=== PATIENT | female | born 1970 | race Caucasian/White ===

== ENCOUNTER 2025-07-14 21:16 | Inpatient (IN) | payer OTHER, SELFPAY ==
--- OUTSIDE RECORDS SUMMARY | 2025-04-12 10:45 | XMS_ITS ---
Author Organization [facility] [address] Address [address] [place] [address] Care Team Providers Care Event Marketing Specialist Name Role Phone [facility] [place] Primary C are Provider Unavailable MICHAEL POTTER Unavailable [phone] Encounters Encounter Location Date Provider Diagnosis [facility] [address] [place] [address] 04/12/2025 MICHAEL POTTER Plan Of Treatment Next Appt Details Provider Name:MICHAEL POTTER, 07/20/2025 08:00:00 AM, [address], [place], [address], Progress Notes * Hieu MALIKB:1970 (55 yo F)Acc No.[id number]:04/12/2025 Patient: Rayne Christina NICOLE Provider: Kevin POTTER PA-C :1970 A ge:54 Y S ex:Female Date:04/12/2025 Address:[address] [place], [place] [id number] Pcp:[facility] Subjective: * Chief Complaints: * * Medical History: Objective: * Vitals: Assessment: Plan: * Treatment: * Images: Billing Information: * Visit Code: * Procedure Codes: * Electronic signature of CHRIS POTTER PA-C, [id number] on 07/14/2025 at 11:00 PM EDT Sign off status: Pending * Provider: Kevin POTTER PA-C Date: 0 04/12/2025 Generated for Ania river/Jess/Sherman on: 0 07/14/2025 11:00 PM EDT
--- OUTSIDE RECORDS SUMMARY | 2025-05-14 06:00 | XMS_ITS ---
Author Organization [facility] [address] Address [address] [place] [address] Care Team Providers Care Dust Mop Maker Name Role Phone [facility] [place] Primary C are Provider Unavailable MICHAEL POTTER Unavailable [phone] Encounters Encounter Location Date Provider Diagnosis [facility] [address] [place] [address] 05/14/2025 MICHAEL POTTER Plan Of Treatment Next Appt Details Provider Name:MICHAEL POTTER, 07/20/2025 08:00:00 AM, [address], [place], [address], Progress Notes * Hieu MALIKB:1970 (55 yo F)Acc No.[id number]:05/14/2025 Patient: Rayne Christina NICOLE Provider: Kevin POTTER PA-C :1970 A ge:54 Y S ex:Female Date:05/14/2025 Address:[address] [place], [place] [id number] Pcp:[facility] Subjective: * Chief Complaints: * * Medical History: Objective: * Vitals: Assessment: Plan: * Treatment: * Images: Billing Information: * Visit Code: * Procedure Codes: * Electronic signature of CHRIS POTTER PA-C, [id number] on 07/14/2025 at 11:00 PM EDT Sign off status: Pending * Provider: Kevin POTTER PA-C Date: 0 05/14/2025 Generated for Ania river/Jess/Sherman on: 0 07/14/2025 11:00 PM EDT
--- NOTE | ~2025-07-14 | CT_ITS ---
CLINICAL HISTORY: LLQ Pain; Tenderness; CT abdomen and pelvis with contrast Comparison: None provided Findings: The lung bases are clear. Splenic cyst. Distended gallbladder without wall thickening. Liver, pancreas, and adrenal glands are within normal limits. Right kidney is absent. Left hydroureteronephrosis with 2 mm calculus in the left ureterovesical junction. No bowel obstruction, pneumatosis or pneumoperitoneum. Normal appendix. Hysterectomy. Urinary bladder is underdistended. The bones are intact. IMPRESSION: 1. Left hydroureteronephrosis with 2 mm calculus in left ureterovesical junction. 2. Absent right kidney. This document has been electronically signed by: Angel Casanova MD on 07/15/2025 02:02:46
[2025-07-14 21:27] VITALS: BP 124/69; PULSE 74; RESP 20; TEMP 37; O2SAT 98; BMI 24.3
[2025-07-14 21:44] LABS: MANUAL DIFF FLAG NO
[2025-07-14 21:45] LABS: Hematocrit 38.7 % (37.0-47.0); Hemoglobin 13.1 g/dl (12.0-16.0); Imm Gran Abs Auto 0.01 X10*3/uL (0.00-0.03); Imm Gran Pct Auto 0.2 % (0.0-0.4); Lymphocytes Absolute Auto 0.8 X10*3/uL (1.2-4.9); Mean Corpuscular HGB Conc 33.9 g/dl (31.0-35.0); Mean Corpuscular Hemoglobin 29.6 pg (27.0-33.0); Mean Corpuscular Volume 87.6 fL (80.0-98.0); NRBC Abs Auto 0.000 X10*3/uL (0.0-0.012); NRBC Pct Auto 0.0 /100WBC (0.0-0.2); Platelet Count 165 X10*3/uL (160-400); Red Blood Count 4.42 X10*6/uL (4.20-5.50); White Blood Count 6.6 X10*3/uL (4.8-10.8)
[2025-07-14 21:58] LABS: Alanine Aminotransferase 16 U/L (0-31); Albumin Level 4.5 g/dL (3.5-5.0); Alkaline Phosphatase 63 U/L (39-117); Anion Gap 11 (12-20); Aspartate Amino Transferase 21 U/L (5-31); Blood Urea Nitrogen 15 mg/dL (9-16); Calcium 9.5 mg/dL (8.4-10.2); Carbon Dioxide 23 mmol/L (22-29); Chloride 113 mmol/L (96-108); Creatinine Clr Calc Pharmacy 36.2; Estimated Glomerular Filt Rate 34; Lipase 44 U/L (8-78); Potassium 3.3 mmol/L (3.3-5.1); Sodium 144 mmol/L (135-145); Total Protein 6.5 g/dL (6.5-8.0)
--- OUTSIDE RECORDS SUMMARY | 2025-07-14 23:00 | XMS_ITS | Patient Health Record ---
[facility] [address] [address] Address [address] [place] [address] Care Team Providers Care Slip Cover Maker Name Role Phone [facility] Primary C are Provider Unavailable TARIQMICHAEL Brown Unavailable [phone] CHYNA HICKS Unavailable [phone] Allergies No Known Allergies Reason For Referral No Information Medications Medication SIG (Take, Route, Frequency, Duration) Notes Start Date End Date Status Zepbound 7.5 MG/0.5ML 0.5 mL Subcutaneou s once weekly; Duration: 90 days 05/04/2025 Active Wegovy 1 MG/0.5ML 0.5 mL Subcutaneous once weekly; Duration: 30 days 06/08/2025 Active Zoloft 100 MG 2 tablet Orally Once a day Active Wellbutrin 50mg bid Active Social History Tobacco Use: Social History Observation Description Date Details (start date - stop date) Never Smoker NA - NA Tobacco Use/Smoking Question Answer Notes Are you a nonsmoker Problems Problem Type SNOMED Code ICD Code Onset Dates Problem Status W/U Status Risk Notes Problem Obesity (463585007) Obesity (BMI 30-39.9) (E66.9) Active confirmed Problem Obese class I (18436161679717 7) BMI 33.0-33.9,adult (Z68.33) Active confirmed Problem Obese class II (81409861694159 5) BMI 36.0-36.9,adult (Z68.36) Active confirmed Problem Body mass index 30+ - obesity (124793369) BMI 30.0-30.9,adult (Z68.30) Active confirmed Problem Overweight (343926342) Overweight (BMI 25.0-29.9) (E66.3) Active confirmed Vital Signs Heart Rate 80 /min 06/08/2025 Oximetry 95 % 06/08/2025 Blood pressure diastolic 68 mm Hg 06/08/2025 Height 63 in 06/08/2025 Blood pressure systolic 118 mm Hg 06/08/2025 Weight 145.5 lbs 06/08/2025 BMI 25.77 kg/m2 06/08/2025 Encounters Encounter Location Date Provider Diagnosis [id number] 10/13/2024 MICHAEL TARIQ Obesity (BMI 30-39.9 ) E66.9 ; BMI 36.0-36.9,adult Z68.36 ; Mild depression F32.A and Kidney donor Z52.[address] 12/07/2024 MICHAEL TARIQ Obesity (BMI 30-39.9 ) E66.9 ; BMI 33.0-33.9,adult Z68.33 and Chronic depression F32.A [facility] 02/01/2025 MICHAEL TARIQ Obesity (BMI 30-39.9 ) E66.9 ; BMI 30.0-30.9,adult Z68.30 ; Chronic depression F32.A and Other fatigue R53.[address] 03/15/2025 MICHAEL TARIQ Overweight (BMI 25.0-29.9) E66.3 ; BMI 28.0-28.9,adult Z68.28 ; Chronic depression F32.A and Encounter for examination of blood pressure without abnormal findings Z01.[address] 05/04/2025 MICHAEL TARIQ BMI 27.0-27.9,adult Z68.27 ; Overweight (BMI 25.0-29.9) E66.3 ; Chronic depression F32.A and Encounter for examination of blood pressure without abnormal findings Z01.[address] 06/08/2025 MICHAEL TARIQ BMI 25.0-25.9,adult Z68.25 ; Overweight (BMI 25.0-29.9) E66.3 ; Chronic depression F32.A and Encounter for examination of blood pressure without abnormal findings Z01.30 [facility] [address] [address] 10/16/2024 MICHAEL TARIQ [facility] [address] [address] 10/16/2024 MICHAEL TARIQ Obesity (BMI 30-39.9 ) E66.9 [facility] [address] [address] 11/13/2024 MICHAEL TARIQ [facility] [address] [place] [address] 12/08/2024 MICHAEL TARIQ Obesity (BMI 30-39.9 ) E66.9 [facility] [address] [address] 01/08/2025 MICHAEL TARIQ Obesity (BMI 30-39.9 ) E66.9 [facility] [address] [address] 01/22/2025 MICHAEL TARIQ [facility] [address] [place] [address] 05/04/2025 MICHAEL TARIQ [facility] [address] [address] 10/13/2024 MICHAEL TARIQ [facility] [address] [address] 02/01/2025 MICHAEL TARIQ Obesity (BMI 30-39.9 ) E66.9 Assessments Encounter Date Diagnosis (ICD Code) Assessment Notes Treatment Notes Treatment Clinical Notes Section Notes 10/16/2024 Obesity (BMI 30-39.9) (ICD-10 - E66.9) 12/07/2024 Obesity (BMI 30-39.9) (ICD-10 - E66.9) 10/13/2024: Wt: 207.6 lbs, BMI: 36.77 patient struggles with weight loss regardless of lifestyle modifications. Currently does not have a well-balanced diet and often times eats meals on the go. Does not have current exercise regimen but would like to start CrossFit in November. Discussed the importance of a high-protein diet and limiting processed foods, sugar alcohol. Discussed the importance of increasing physical activity with a daily step count of 8 to 10K steps daily as well as beginning strength training. Discussed seca scan with patient. Patient has had recent labs obtained and will bring to next follow-up. Plan to begin tirzepatide 2.5 mg weekly injections. Discussed side effects and role of medication. Plan to send for prior authorization. Plan to follow-up in 4 weeks. 12/07/2024: Wt: 188.2 lbs, BMI: 33.33 patient currently on Zepbound 5 mg weekly injections. Patient reports severe appetite suppression. Denies any side effects. Patient reports drinking a protein shake in the morning with 42 g of protein and often times does not eat anything else for the rest of the day. Discussed risk versus benefit with this medication. Explained in great detail the importance of eating regardless of appetite in order to prevent further destruction of metabolism. Discussed risk of body in starvation mode and holding onto fat as opposed to losing it. Advised patient to eat at least 1100 lupe daily up to 1400 lupe. Advised patient to eat at least 100 g of protein daily. Advised patient to increase physical activity in order to promote muscle mass growth as well. Discussed with patient that we would not be able to increase medication dose at this time due to muscle loss. Discussed with patient if she does not increase muscle, we will need to discontinue medication. Discussed Seca scale results. Overall has lost 19 pounds, 14 pounds of fat mass and 4 pounds of muscle mass. Patient agreeable with plan. Plan to closely monitor. #Depression: Well-managed. Plan to continue Zoloft 100 mg p.o. once daily. #Live donor #kidney transplant: Patient reports in July she recently donated kidney for transplant. Will try to obtain these records. Total time spent is was 30 minutes, with more face to face time This medication is prescribed by or in consultation with a board certified obesity and weight management physician Dr. Chyna Hicks The patient will continue exercise regimen with an emphasis on improving/increasing steps to at least 6,000-10,000 steps per day. Increasing cardio and strength training exercises as tolerated to improve weight loss and work on building muscle mass. Patient is committed to smarter eating with calorie counting and mindful eating. Limiting processed foods and carbohydrates and increasing leafy greens and lean proteins as well as fruits into their diet. Patient was counseled on the importance of eating local, organic food when possible. Patient has been counseled regarding effects of GLP/GIP-1 agonists and other FDA approved weight loss medications with regards to a multifactorial approach of weight loss as mentioned above and that the medication alone will not be sufficient to meet patients goals. We discussed holistic medication approach with emphasis on lifestyle modification. Discussed obesity as it increases risk of diabetes, cardiovascular disease, and/or organ damage. We spent a lot of time discussing the relationship between food, exercise, sleep, mental health, and obesity. We discussed the importance of having SECAs done every visit and having accountability done during these visits. That the scale is done to monitor not only weight loss but the body composition during medication management and healthy lifestyle changes. We discussed that if the patient is unable at times to financially afford this scale that we would rather waive the fee and have the scale done than have the patient not have the scale obtained. Will follow up with the patient in 4 weeks time to monitor weight loss. total time was 30 min, greater than 50 % of time was spent on care coordination Case discussed with collaborating physician Paulino Hicks who reviewed the assessment and plan. Chart, medications, labs, vital signs reviewed. Dictation was accomplished with the use of [employer] voice recognition software, prone to medical misidentifications and grammatical errors. This is unintentional and the practitioner does try to identify and correct these, but some could still be present. Please do not hesitate to contact practitioner for clarification. All questions answered to patients satisfaction. Patient verbalized understanding of diagnosis and treatments explained. To call sooner prior to next visit it any questions/concerns arise. 12/07/2024 BMI 33.0-33.9,adul t (ICD-10 - Z68.33) 10/13/2024: Wt: 207.6 lbs, BMI: 36.77 patient struggles with weight loss regardless of lifestyle modifications. Currently does not have a well-balanced diet and often times eats meals on the go. Does not have current exercise regimen but would like to start CrossFit in November. Discussed the importance of a high-protein diet and limiting processed foods, sugar alcohol. Discussed the importance of increasing physical activity with a daily step count of 8 to 10K steps daily as well as beginning strength training. Discussed seca scan with patient. Patient has had recent labs obtained and will bring to next follow-up. Plan to begin tirzepatide 2.5 mg weekly injections. Discussed side effects and role of medication. Plan to send for prior authorization. Plan to follow-up in 4 weeks. 12/07/2024: Wt: 188.2 lbs, BMI: 33.33 patient currently on Zepbound 5 mg weekly injections. Patient reports severe appetite suppression. Denies any side effects. Patient reports drinking a protein shake in the morning with 42 g of protein and often times does not eat anything else for the rest of the day. Discussed risk versus benefit with this medication. Explained in great detail the importance of eating regardless of appetite in order to prevent further destruction of metabolism. Discussed risk of body in starvation mode and holding onto fat as opposed to losing it. Advised patient to eat at least 1100 lupe daily up to 1400 lupe. Advised patient to eat at least 100 g of protein daily. Advised patient to increase physical activity in order to promote muscle mass growth as well. Discussed with patient that we would not be able to increase medication dose at this time due to muscle loss. Discussed with patient if she does not increase muscle, we will need to discontinue medication. Discussed Seca scale results. Overall has lost 19 pounds, 14 pounds of fat mass and 4 pounds of muscle mass. Patient agreeable with plan. Plan to closely monitor. #Depression: Well-managed. Plan to continue Zoloft 100 mg p.o. once daily. #Live donor #kidney transplant: Patient reports in July she recently donated kidney for transplant. Will try to obtain these records. Total time spent is was 30 minutes, with more face to face time This medication is prescribed by or in consultation with a board certified obesity and weight management physician Dr. Chyna Hicks The patient will continue exercise regimen with an emphasis on improving/increasing steps to at least 6,000-10,000 steps per day. Increasing cardio and strength training exercises as tolerated to improve weight loss and work on building muscle mass. Patient is committed to smarter eating with calorie counting and mindful eating. Limiting processed foods and carbohydrates and increasing leafy greens and lean proteins as well as fruits into their diet. Patient was counseled on the importance of eating local, organic food when possible. Patient has been counseled regarding effects of GLP/GIP-1 agonists and other FDA approved weight loss medications with regards to a multifactorial approach of weight loss as mentioned above and that the medication alone will not be sufficient to meet patients goals. We discussed holistic medication approach with emphasis on lifestyle modification. Discussed obesity as it increases risk of diabetes, cardiovascular disease, and/or organ damage. We spent a lot of time discussing the relationship between food, exercise, sleep, mental health, and obesity. We discussed the importance of having SECAs done every visit and having accountability done during these visits. That the scale is done to monitor not only weight loss but the body composition during medication management and healthy lifestyle changes. We discussed that if the patient is unable at times to financially afford this scale that we would rather waive the fee and have the scale done than have the patient not have the scale obtained. Will follow up with the patient in 4 weeks time to monitor weight loss. total time was 30 min, greater than 50 % of time was spent on care coordination Case discussed with collaborating physician Paulino Hicks who reviewed the assessment and plan. Chart, medications, labs, vital signs reviewed. Dictation was accomplished with the use of [employer] voice recognition software, prone to medical misidentifications and grammatical errors. This is unintentional and the practitioner does try to identify and correct these, but some could still be present. Please do not hesitate to contact practitioner for clarification. All questions answered to patients satisfaction. Patient verbalized understanding of diagnosis and treatments explained. To call sooner prior to next visit it any questions/concerns arise. 10/13/2024 Obesity (BMI 30-39.9) (ICD-10 - E66.9) Patient was reassured and welcomed to the practice. 10/13/2024: Wt: 207.6 lbs, BMI: 36.77 patient struggles with weight loss regardless of lifestyle modifications. Currently does not have a well-balanced diet and often times eats meals on the go. Does not have current exercise regimen but would like to start CrossFit in November. Discussed the importance of a high-protein diet and limiting processed foods, sugar alcohol. Discussed the importance of increasing physical activity with a daily step count of 8 to 10K steps daily as well as beginning strength training. Discussed seca scan with patient. Patient has had recent labs obtained and will bring to next follow-up. Plan to begin tirzepatide 2.5 mg weekly injections. Discussed side effects and role of medication. Plan to send for prior authorization. Plan to follow-up in 4 weeks. #Depression: Well-managed. Plan to continue Zoloft 100 mg p.o. once daily. #Live donor #kidney transplant: Patient reports in July she recently donated kidney for transplant. Will try to obtain these records. We discussed that we stress a hollistic medical approach with emphasis on lifestyle modification. Patient was informed that a healthy lifestyle with exercise and good eating habits can help reduce his risk of medical complications. Patient is explained that obesity increases his risk of diabetes, cardiovascular disease, or organ damage. We spent a lot of time discussing the relationship between food, exercise, sleep, mental health and obesity. Patient was counseled on the importance EATING local, organic food when possible. Patient was educated on clean 15 and dirty dozen. I provided information about reading books called The Food Rules by Hema Brito and Eat Fat Get Lean by Dr Jun Apple. Self education is important in the journey for weight management. Patient was offered diagnostic testing/ SECA scale. We want to measure visceral adiposity, advanced body composition, adverse lipids, fatty acid balance, risk for heart disease and atherosclerosis, markers of inflammation and genetic susceptibility. Patient was counseled on weight management and was advised to lose weight using A. Meal Replacement Products Patient was educated on the replacement products called optifast. This is a good way of taking fixed amount of calories. It has been shown in studies to be ineffective weight management tool. This however has to be coupled with lifestyle intervention as well as laboratory data and EKG monitoring. It is impossible to know how a person will tolerate complete meal replacement. The side effects of meal replacement and weight loss could include syncopal attacks, dizziness, gallstones, potential cholecystectomy, possible heart attack and even . The benefits of meal replacement would be potential weight loss but no guarantees can be made. Meal replacement products are not covered by insurance. Once the patient has bought these products we cannot return them B. Lifestyle management which includes several strategies as below 1. Eat a low carbohydrate good fat good protein diet. Eliminate refined carbohydrates from the diet. Limit sugared beverages. Eat local organic when possible. Cook your own meals. Read food labels. Focus on healthy snacks. Portion control and food with low glycemic index 2. Exercise regularly. Try to get at least 6000 steps a day. Use a predominant to track activity level. Consider using apps like 7 minute excercise, myfitnesspal, lose it, stick as needed for self-monitoring and weight management. Consider group exercises. Consider hiring a personalized living assistant. Regular exercise is mendez to sustainable health and prevents as a buffer against weight regain 3. Sleep is most important for healing. Try to sleep at least 6-8 hours a night. A good quality sleep needs a sleep ritual with ideal room temperature of around 68. It might help to take a shower and have no electronics in the room and sleep in a very dark room without artificial light. Start sleep routine and get up early in the morning and go to bed on time. 4. Make a social connection. Surround yourself with positive people with positive energy. Connect with friends and family. 5. Get into the habit of meditating and mindfulness while doing everything. 6. Go outside and connect with nature. C. Prescription medications Patient was educated on the use of prescription medications for medical weight loss. This is a growing list and includes phentermine, Topamax, Qsymia, contrave, belviq and saxenda, wegovy etc. All prescription medications could have side effects including but not limited to kidney stones, seizure disorder, cardiac arrhythmias, heart attack, pancreatitis, GI effects, Etc. Patient was encouraged to read the prescription insert and discuss with their pharmacist to make an informed decision about taking medication and know that these medications are being prescribed with good intentions and we do not know how a patient would react to her medication. Some medications are FDA approved for weight loss and there is also off label use depending on patient's inability to afford medications in an attempt to lose weight. D. Behavioral counseling was done to establish a relationship between food and an mood. Patient was provided information about local counseling and psychiatry and Dr Koo at [facility]. We would like to cover regular topics and build on low glycemic eating exercise mindful eating, using yoga and meditation along with deep breathing and connecting with friends and family. E. MASS PAT reviewed, Patient's current medications were reviewed and opinion was given on medication that can cause weight gain and can be substituted F. Patient was assessed for risk with obesity including and not limiting to atherosclerosis, heart disease, stroke, kidney disease, restrictive lung disease, irritable bowel syndrome and overall mortality. Risk of developing prediabetes diabetes and metabolic syndrome was discussed G. Therapeutic plan: We have decided to make therapeutic plan which would include choosing wisely on calories restricting portion getting active, tracking weight, getting good quality sleep and working on time management H. Patient will follow up in 4 weeks for weight management Total time spent today was 60 minutes of which greater than 50% was spent on coordinating and counseling Case discussed with collaborating physician Fany Hicks who reviewed the assessment and plan. Chart, medications, labs, vital signs reviewed. Dictation was accomplished with the use of [employer] voice recognition software, prone to medical misidentifications and grammatical errors. This is unintentional and the practitioner does try to identify and correct these, but some could still be present. Please do not hesitate to contact practitioner for clarification. All questions answered to patients satisfaction. Patient verbalized understanding of diagnosis and treatments explained. To call sooner prior to next visit it any questions/concerns arise. 10/13/2024 BMI 36.0-36.9,adul t (ICD-10 - Z68.36) Patient was reassured and welcomed to the practice. 10/13/2024: Wt: 207.6 lbs, BMI: 36.77 patient struggles with weight loss regardless of lifestyle modifications. Currently does not have a well-balanced diet and often times eats meals on the go. Does not have current exercise regimen but would like to start CrossFit in November. Discussed the importance of a high-protein diet and limiting processed foods, sugar alcohol. Discussed the importance of increasing physical activity with a daily step count of 8 to 10K steps daily as well as beginning strength training. Discussed seca scan with patient. Patient has had recent labs obtained and will bring to next follow-up. Plan to begin tirzepatide 2.5 mg weekly injections. Discussed side effects and role of medication. Plan to send for prior authorization. Plan to follow-up in 4 weeks. #Depression: Well-managed. Plan to continue Zoloft 100 mg p.o. once daily. #Live donor #kidney transplant: Patient reports in July she recently donated kidney for transplant. Will try to obtain these records. We discussed that we stress a hollistic medical approach with emphasis on lifestyle modification. Patient was informed that a healthy lifestyle with exercise and good eating habits can help reduce his risk of medical complications. Patient is explained that obesity increases his risk of diabetes, cardiovascular disease, or organ damage. We spent a lot of time discussing the relationship between food, exercise, sleep, mental health and obesity. Patient was counseled on the importance EATING local, organic food when possible. Patient was educated on clean 15 and dirty dozen. I provided information about reading books called The Food Rules by Hema Brito and Eat Fat Get Lean by Dr Jun Apple. Self education is important in the journey for weight management. Patient was offered diagnostic testing/ SECA scale. We want to measure visceral adiposity, advanced body composition, adverse lipids, fatty acid balance, risk for heart disease and atherosclerosis, markers of inflammation and genetic susceptibility. Patient was counseled on weight management and was advised to lose weight using A. Meal Replacement Products Patient was educated on the replacement products called optifast. This is a good way of taking fixed amount of calories. It has been shown in studies to be ineffective weight management tool. This however has to be coupled with lifestyle intervention as well as laboratory data and EKG monitoring. It is impossible to know how a person will tolerate complete meal replacement. The side effects of meal replacement and weight loss could include syncopal attacks, dizziness, gallstones, potential cholecystectomy, possible heart attack and even . The benefits of meal replacement would be potential weight loss but no guarantees can be made. Meal replacement products are not covered by insurance. Once the patient has bought these products we cannot return them B. Lifestyle management which includes several strategies as below 1. Eat a low carbohydrate good fat good protein diet. Eliminate refined carbohydrates from the diet. Limit sugared beverages. Eat local organic when possible. Cook your own meals. Read food labels. Focus on healthy snacks. Portion control and food with low glycemic index 2. Exercise regularly. Try to get at least 6000 steps a day. Use a predominant to track activity level. Consider using apps like 7 minute excercise, mySpeakUpnesspal, lose it, stick as needed for self-monitoring and weight management. Consider group exercises. Consider hiring a personalized living assistant. Regular exercise is mendez to sustainable health and prevents as a buffer against weight regain 3. Sleep is most important for healing. Try to sleep at least 6-8 hours a night. A good quality sleep needs a sleep ritual with ideal room temperature of around 68. It might help to take a shower and have no electronics in the room and sleep in a very dark room without artificial light. Start sleep routine and get up early in the morning and go to bed on time. 4. Make a social connection. Surround yourself with positive people with positive energy. Connect with friends and family. 5. Get into the habit of meditating and mindfulness while doing everything. 6. Go outside and connect with nature. C. Prescription medications Patient was educated on the use of prescription medications for medical weight loss. This is a growing list and includes phentermine, Topamax, Qsymia, contrave, belviq and saxenda, wegovy etc. All prescription medications could have side effects including but not limited to kidney stones, seizure disorder, cardiac arrhythmias, heart attack, pancreatitis, GI effects, Etc. Patient was encouraged to read the prescription insert and discuss with their pharmacist to make an informed decision about taking medication and know that these medications are being prescribed with good intentions and we do not know how a patient would react to her medication. Some medications are FDA approved for weight loss and there is also off label use depending on patient's inability to afford medications in an attempt to lose weight. D. Behavioral counseling was done to establish a relationship between food and an mood. Patient was provided information about local counseling and psychiatry and Dr Koo at [facility]. We would like to cover regular topics and build on low glycemic eating exercise mindful eating, using yoga and meditation along with deep breathing and connecting with friends and family. E. MASS PAT reviewed, Patient's current medications were reviewed and opinion was given on medication that can cause weight gain and can be substituted F. Patient was assessed for risk with obesity including and not limiting to atherosclerosis, heart disease, stroke, kidney disease, restrictive lung disease, irritable bowel syndrome and overall mortality. Risk of developing prediabetes diabetes and metabolic syndrome was discussed G. Therapeutic plan: We have decided to make therapeutic plan which would include choosing wisely on calories restricting portion getting active, tracking weight, getting good quality sleep and working on time management H. Patient will follow up in 4 weeks for weight management Total time spent today was 60 minutes of which greater than 50% was spent on coordinating and counseling Case discussed with collaborating physician Fany Hicks who reviewed the assessment and plan. Chart, medications, labs, vital signs reviewed. Dictation was accomplished with the use of [employer] voice recognition software, prone to medical misidentifications and grammatical errors. This is unintentional and the practitioner does try to identify and correct these, but some could still be present. Please do not hesitate to contact practitioner for clarification. All questions answered to patients satisfaction. Patient verbalized understanding of diagnosis and treatments explained. To call sooner prior to next visit it any questions/concerns arise. 12/08/2024 Obesity (BMI 30-39.9) (ICD-10 - E66.9) 01/08/2025 Obesity (BMI 30-39.9) (ICD-10 - E66.9) 02/01/2025 Obesity (BMI 30-39.9) (ICD-10 - E66.9) 10/13/2024: Wt: 207.6 lbs, BMI: 36.77 patient struggles with weight loss regardless of lifestyle modifications. Currently does not have a well-balanced diet and often times eats meals on the go. Does not have current exercise regimen but would like to start CrossFit in November. Discussed the importance of a high-protein diet and limiting processed foods, sugar alcohol. Discussed the importance of increasing physical activity with a daily step count of 8 to 10K steps daily as well as beginning strength training. Discussed seca scan with patient. Patient has had recent labs obtained and will bring to next follow-up. Plan to begin tirzepatide 2.5 mg weekly injections. Discussed side effects and role of medication. Plan to send for prior authorization. Plan to follow-up in 4 weeks. 12/07/2024: Wt: 188.2 lbs, BMI: 33.33 patient currently on Zepbound 5 mg weekly injections. Patient reports severe appetite suppression. Denies any side effects. Patient reports drinking a protein shake in the morning with 42 g of protein and often times does not eat anything else for the rest of the day. Discussed risk versus benefit with this medication. Explained in great detail the importance of eating regardless of appetite in order to prevent further destruction of metabolism. Discussed risk of body in starvation mode and holding onto fat as opposed to losing it. Advised patient to eat at least 1100 lupe daily up to 1400 lupe. Advised patient to eat at least 100 g of protein daily. Advised patient to increase physical activity in order to promote muscle mass growth as well. Discussed with patient that we would not be able to increase medication dose at this time due to muscle loss. Discussed with patient if she does not increase muscle, we will need to discontinue medication. Discussed Seca scale results. Overall has lost 19 pounds, 14 pounds of fat mass and 4 pounds of muscle mass. Patient agreeable with plan. Plan to closely monitor. 02/01/2025: Wt: 174.4 lbs, BMI: 30.89 patient currently on Zepbound 5 mg weekly injections. Denies any side effects. Endorses adequate appetite suppression. Patient overall is lost 14 pounds since last visit, 11 pounds of fat mass and 4 pounds of muscle. Discussed in great detail that if patient continues to lose muscle we will have to discontinue medication. Recommend increasing protein with a goal of at least 80-100 g of protein daily. Patient recently started strength training and patient was congratulated on effort. Discussed staying consistent with at least 2 days of strength training weekly to promote muscle growth. Plan to stay on Zepbound 5 mg weekly injections and follow-up in 4 weeks. #Fatigue: Patient reports extreme fatigue. Would like to try JACQUELYN vitamin B12 injection today in office. Advised to schedule follow-up for an injection next week. #Depression: Well-managed. Plan to continue Zoloft 100 mg p.o. once daily. #Live donor #kidney transplant: Patient reports in July she recently donated kidney for transplant. Will try to obtain these records. Total time spent is was 30 minutes, with more face to face time This medication is prescribed by or in consultation with a board certified obesity and weight management physician Dr. Chyna Hicks The patient will continue exercise regimen with an emphasis on improving/increasing steps to at least 6,000-10,000 steps per day. Increasing cardio and strength training exercises as tolerated to improve weight loss and work on building muscle mass. Patient is committed to smarter eating with calorie counting and mindful eating. Limiting processed foods and carbohydrates and increasing leafy greens and lean proteins as well as fruits into their diet. Patient was counseled on the importance of eating local, organic food when possible. Patient has been counseled regarding effects of GLP/GIP-1 agonists and other FDA approved weight loss medications with regards to a multifactorial approach of weight loss as mentioned above and that the medication alone will not be sufficient to meet patients goals. We discussed holistic medication approach with emphasis on lifestyle modification. Discussed obesity as it increases risk of diabetes, cardiovascular disease, and/or organ damage. We spent a lot of time discussing the relationship between food, exercise, sleep, mental health, and obesity. We discussed the importance of having SECAs done every visit and having accountability done during these visits. That the scale is done to monitor not only weight loss but the body composition during medication management and healthy lifestyle changes. We discussed that if the patient is unable at times to financially afford this scale that we would rather waive the fee and have the scale done than have the patient not have the scale obtained. Will follow up with the patient in 4 weeks time to monitor weight loss. total time was 30 min, greater than 50 % of time was spent on care coordination Case discussed with collaborating physician Paulino Hicks who reviewed the assessment and plan. Chart, medications, labs, vital signs reviewed. Dictation was accomplished with the use of [employer] voice recognition software, prone to medical misidentifications and grammatical errors. This is unintentional and the practitioner does try to identify and correct these, but some could still be present. Please do not hesitate to contact practitioner for clarification. All questions answered to patients satisfaction. Patient verbalized understanding of diagnosis and treatments explained. To call sooner prior to next visit it any questions/concerns arise. 02/01/2025 BMI 30.0-30.9,adul t (ICD-10 - Z68.30) 10/13/2024: Wt: 207.6 lbs, BMI: 36.77 patient struggles with weight loss regardless of lifestyle modifications. Currently does not have a well-balanced diet and often times eats meals on the go. Does not have current exercise regimen but would like to start CrossFit in November. Discussed the importance of a high-protein diet and limiting processed foods, sugar alcohol. Discussed the importance of increasing physical activity with a daily step count of 8 to 10K steps daily as well as beginning strength training. Discussed seca scan with patient. Patient has had recent labs obtained and will bring to next follow-up. Plan to begin tirzepatide 2.5 mg weekly injections. Discussed side effects and role of medication. Plan to send for prior authorization. Plan to follow-up in 4 weeks. 12/07/2024: Wt: 188.2 lbs, BMI: 33.33 patient currently on Zepbound 5 mg weekly injections. Patient reports severe appetite suppression. Denies any side effects. Patient reports drinking a protein shake in the morning with 42 g of protein and often times does not eat anything else for the rest of the day. Discussed risk versus benefit with this medication. Explained in great detail the importance of eating regardless of appetite in order to prevent further destruction of metabolism. Discussed risk of body in starvation mode and holding onto fat as opposed to losing it. Advised patient to eat at least 1100 lupe daily up to 1400 lupe. Advised patient to eat at least 100 g of protein daily. Advised patient to increase physical activity in order to promote muscle mass growth as well. Discussed with patient that we would not be able to increase medication dose at this time due to muscle loss. Discussed with patient if she does not increase muscle, we will need to discontinue medication. Discussed Seca scale results. Overall has lost 19 pounds, 14 pounds of fat mass and 4 pounds of muscle mass. Patient agreeable with plan. Plan to closely monitor. 02/01/2025: Wt: 174.4 lbs, BMI: 30.89 patient currently on Zepbound 5 mg weekly injections. Denies any side effects. Endorses adequate appetite suppression. Patient overall is lost 14 pounds since last visit, 11 pounds of fat mass and 4 pounds of muscle. Discussed in great detail that if patient continues to lose muscle we will have to discontinue medication. Recommend increasing protein with a goal of at least 80-100 g of protein daily. Patient recently started strength training and patient was congratulated on effort. Discussed staying consistent with at least 2 days of strength training weekly to promote muscle growth. Plan to stay on Zepbound 5 mg weekly injections and follow-up in 4 weeks. #Fatigue: Patient reports extreme fatigue. Would like to try JACQUELYN vitamin B12 injection today in office. Advised to schedule follow-up for an injection next week. #Depression: Well-managed. Plan to continue Zoloft 100 mg p.o. once daily. #Live donor #kidney transplant: Patient reports in July she recently donated kidney for transplant. Will try to obtain these records. Total time spent is was 30 minutes, with more face to face time This medication is prescribed by or in consultation with a board certified obesity and weight management physician Dr. Chyna Hicks The patient will continue exercise regimen with an emphasis on improving/increasing steps to at least 6,000-10,000 steps per day. Increasing cardio and strength training exercises as tolerated to improve weight loss and work on building muscle mass. Patient is committed to smarter eating with calorie counting and mindful eating. Limiting processed foods and carbohydrates and increasing leafy greens and lean proteins as well as fruits into their diet. Patient was counseled on the importance of eating local, organic food when possible. Patient has been counseled regarding effects of GLP/GIP-1 agonists and other FDA approved weight loss medications with regards to a multifactorial approach of weight loss as mentioned above and that the medication alone will not be sufficient to meet patients goals. We discussed holistic medication approach with emphasis on lifestyle modification. Discussed obesity as it increases risk of diabetes, cardiovascular disease, and/or organ damage. We spent a lot of time discussing the relationship between food, exercise, sleep, mental health, and obesity. We discussed the importance of having SECAs done every visit and having accountability done during these visits. That the scale is done to monitor not only weight loss but the body composition during medication management and healthy lifestyle changes. We discussed that if the patient is unable at times to financially afford this scale that we would rather waive the fee and have the scale done than have the patient not have the scale obtained. Will follow up with the patient in 4 weeks time to monitor weight loss. total time was 30 min, greater than 50 % of time was spent on care coordination Case discussed with collaborating physician Paulino Hicks who reviewed the assessment and plan. Chart, medications, labs, vital signs reviewed. Dictation was accomplished with the use of [employer] voice recognition software, prone to medical misidentifications and grammatical errors. This is unintentional and the practitioner does try to identify and correct these, but some could still be present. Please do not hesitate to contact practitioner for clarification. All questions answered to patients satisfaction. Patient verbalized understanding of diagnosis and treatments explained. To call sooner prior to next visit it any questions/concerns arise. 02/01/2025 Obesity (BMI 30-39.9) (ICD-10 - E66.9) 03/15/2025 BMI 28.0-28.9,adul t (ICD-10 - Z68.28) 10/13/2024: Wt: 207.6 lbs, BMI: 36.77 patient struggles with weight loss regardless of lifestyle modifications. Currently does not have a well-balanced diet and often times eats meals on the go. Does not have current exercise regimen but would like to start CrossFit in November. Discussed the importance of a high-protein diet and limiting processed foods, sugar alcohol. Discussed the importance of increasing physical activity with a daily step count of 8 to 10K steps daily as well as beginning strength training. Discussed seca scan with patient. Patient has had recent labs obtained and will bring to next follow-up. Plan to begin tirzepatide 2.5 mg weekly injections. Discussed side effects and role of medication. Plan to send for prior authorization. Plan to follow-up in 4 weeks. 12/07/2024: Wt: 188.2 lbs, BMI: 33.33 patient currently on Zepbound 5 mg weekly injections. Patient reports severe appetite suppression. Denies any side effects. Patient reports drinking a protein shake in the morning with 42 g of protein and often times does not eat anything else for the rest of the day. Discussed risk versus benefit with this medication. Explained in great detail the importance of eating regardless of appetite in order to prevent further destruction of metabolism. Discussed risk of body in starvation mode and holding onto fat as opposed to losing it. Advised patient to eat at least 1100 lupe daily up to 1400 lupe. Advised patient to eat at least 100 g of protein daily. Advised patient to increase physical activity in order to promote muscle mass growth as well. Discussed with patient that we would not be able to increase medication dose at this time due to muscle loss. Discussed with patient if she does not increase muscle, we will need to discontinue medication. Discussed Seca scale results. Overall has lost 19 pounds, 14 pounds of fat mass and 4 pounds of muscle mass. Patient agreeable with plan. Plan to closely monitor. 02/01/2025: Wt: 174.4 lbs, BMI: 30.89 patient currently on Zepbound 5 mg weekly injections. Denies any side effects. Endorses adequate appetite suppression. Patient overall is lost 14 pounds since last visit, 11 pounds of fat mass and 4 pounds of muscle. Discussed in great detail that if patient continues to lose muscle we will have to discontinue medication. Recommend increasing protein with a goal of at least 80-100 g of protein daily. Patient recently started strength training and patient was congratulated on effort. Discussed staying consistent with at least 2 days of strength training weekly to promote muscle growth. Plan to stay on Zepbound 5 mg weekly injections and follow-up in 4 weeks. 03/15/2025: Wt: 161.9 lbs, BMI: 28.68 Currently on Zepbound 5 mg weekly injections. Denies any side effects. Dors is adequate appetite suppression. Overall lost 13 pounds. Has lost 10 pounds of fat mass and has lost 2 pounds of muscle loss. Discussed concern for muscle loss. Patient has begun hitting a goal of 100 g of protein daily. Has also begun strength training. Discussed further increasing protein as well as possibly increasing portion size. Recommend increasing weight with strength training. Plan to continue Zepbound 5 mg and follow-up in 4 weeks. #Low BP: Blood pressure 102/60. Denies any dizziness, lightheadedness, vision changes, shortness of breath. Will continue to monitor. #Depression: Well-managed. Plan to continue Zoloft 100 mg p.o. once daily. #Live donor #kidney transplant: Patient reports in July she recently donated kidney for transplant. Will try to obtain these records. Total time spent is was 30 minutes, with more face to face time This medication is prescribed by or in consultation with a board certified obesity and weight management physician Dr. Chyna Hicks The patient will continue exercise regimen with an emphasis on improving/increasing steps to at least 6,000-10,000 steps per day. Increasing cardio and strength training exercises as tolerated to improve weight loss and work on building muscle mass. Patient is committed to smarter eating with calorie counting and mindful eating. Limiting processed foods and carbohydrates and increasing leafy greens and lean proteins as well as fruits into their diet. Patient was counseled on the importance of eating local, organic food when possible. Patient has been counseled regarding effects of GLP/GIP-1 agonists and other FDA approved weight loss medications with regards to a multifactorial approach of weight loss as mentioned above and that the medication alone will not be sufficient to meet patients goals. We discussed holistic medication approach with emphasis on lifestyle modification. Discussed obesity as it increases risk of diabetes, cardiovascular disease, and/or organ damage. We spent a lot of time discussing the relationship between food, exercise, sleep, mental health, and obesity. We discussed the importance of having SECAs done every visit and having accountability done during these visits. That the scale is done to monitor not only weight loss but the body composition during medication management and healthy lifestyle changes. We discussed that if the patient is unable at times to financially afford this scale that we would rather waive the fee and have the scale done than have the patient not have the scale obtained. Will follow up with the patient in 4 weeks time to monitor weight loss. total time was 30 min, greater than 50 % of time was spent on care coordination Case discussed with collaborating physician Paulino Hicks who reviewed the assessment and plan. Chart, medications, labs, vital signs reviewed. Dictation was accomplished with the use of [employer] voice recognition software, prone to medical misidentifications and grammatical errors. This is unintentional and the practitioner does try to identify and correct these, but some could still be present. Please do not hesitate to contact practitioner for clarification. All questions answered to patients satisfaction. Patient verbalized understanding of diagnosis and treatments explained. To call sooner prior to next visit it any questions/concerns arise. 03/15/2025 Overweight (BMI 25.0-29.9) (ICD-10 - E66.3) 10/13/2024: Wt: 207.6 lbs, BMI: 36.77 patient struggles with weight loss regardless of lifestyle modifications. Currently does not have a well-balanced diet and often times eats meals on the go. Does not have current exercise regimen but would like to start CrossFit in November. Discussed the importance of a high-protein diet and limiting processed foods, sugar alcohol. Discussed the importance of increasing physical activity with a daily step count of 8 to 10K steps daily as well as beginning strength training. Discussed seca scan with patient. Patient has had recent labs obtained and will bring to next follow-up. Plan to begin tirzepatide 2.5 mg weekly injections. Discussed side effects and role of medication. Plan to send for prior authorization. Plan to follow-up in 4 weeks. 12/07/2024: Wt: 188.2 lbs, BMI: 33.33 patient currently on Zepbound 5 mg weekly injections. Patient reports severe appetite suppression. Denies any side effects. Patient reports drinking a protein shake in the morning with 42 g of protein and often times does not eat anything else for the rest of the day. Discussed risk versus benefit with this medication. Explained in great detail the importance of eating regardless of appetite in order to prevent further destruction of metabolism. Discussed risk of body in starvation mode and holding onto fat as opposed to losing it. Advised patient to eat at least 1100 lupe daily up to 1400 lupe. Advised patient to eat at least 100 g of protein daily. Advised patient to increase physical activity in order to promote muscle mass growth as well. Discussed with patient that we would not be able to increase medication dose at this time due to muscle loss. Discussed with patient if she does not increase muscle, we will need to discontinue medication. Discussed Seca scale results. Overall has lost 19 pounds, 14 pounds of fat mass and 4 pounds of muscle mass. Patient agreeable with plan. Plan to closely monitor. 02/01/2025: Wt: 174.4 lbs, BMI: 30.89 patient currently on Zepbound 5 mg weekly injections. Denies any side effects. Endorses adequate appetite suppression. Patient overall is lost 14 pounds since last visit, 11 pounds of fat mass and 4 pounds of muscle. Discussed in great detail that if patient continues to lose muscle we will have to discontinue medication. Recommend increasing protein with a goal of at least 80-100 g of protein daily. Patient recently started strength training and patient was congratulated on effort. Discussed staying consistent with at least 2 days of strength training weekly to promote muscle growth. Plan to stay on Zepbound 5 mg weekly injections and follow-up in 4 weeks. 03/15/2025: Wt: 161.9 lbs, BMI: 28.68 Currently on Zepbound 5 mg weekly injections. Denies any side effects. Dors is adequate appetite suppression. Overall lost 13 pounds. Has lost 10 pounds of fat mass and has lost 2 pounds of muscle loss. Discussed concern for muscle loss. Patient has begun hitting a goal of 100 g of protein daily. Has also begun strength training. Discussed further increasing protein as well as possibly increasing portion size. Recommend increasing weight with strength training. Plan to continue Zepbound 5 mg and follow-up in 4 weeks. #Low BP: Blood pressure 102/60. Denies any dizziness, lightheadedness, vision changes, shortness of breath. Will continue to monitor. #Depression: Well-managed. Plan to continue Zoloft 100 mg p.o. once daily. #Live donor #kidney transplant: Patient reports in July she recently donated kidney for transplant. Will try to obtain these records. Total time spent is was 30 minutes, with more face to face time This medication is prescribed by or in consultation with a board certified obesity and weight management physician Dr. Chyna Hicks The patient will continue exercise regimen with an emphasis on improving/increasing steps to at least 6,000-10,000 steps per day. Increasing cardio and strength training exercises as tolerated to improve weight loss and work on building muscle mass. Patient is committed to smarter eating with calorie counting and mindful eating. Limiting processed foods and carbohydrates and increasing leafy greens and lean proteins as well as fruits into their diet. Patient was counseled on the importance of eating local, organic food when possible. Patient has been counseled regarding effects of GLP/GIP-1 agonists and other FDA approved weight loss medications with regards to a multifactorial approach of weight loss as mentioned above and that the medication alone will not be sufficient to meet patients goals. We discussed holistic medication approach with emphasis on lifestyle modification. Discussed obesity as it increases risk of diabetes, cardiovascular disease, and/or organ damage. We spent a lot of time discussing the relationship between food, exercise, sleep, mental health, and obesity. We discussed the importance of having SECAs done every visit and having accountability done during these visits. That the scale is done to monitor not only weight loss but the body composition during medication management and healthy lifestyle changes. We discussed that if the patient is unable at times to financially afford this scale that we would rather waive the fee and have the scale done than have the patient not have the scale obtained. Will follow up with the patient in 4 weeks time to monitor weight loss. total time was 30 min, greater than 50 % of time was spent on care coordination Case discussed with collaborating physician Paulino Hicks who reviewed the assessment and plan. Chart, medications, labs, vital signs reviewed. Dictation was accomplished with the use of [employer] voice recognition software, prone to medical misidentifications and grammatical errors. This is unintentional and the practitioner does try to identify and correct these, but some could still be present. Please do not hesitate to contact practitioner for clarification. All questions answered to patients satisfaction. Patient verbalized understanding of diagnosis and treatments explained. To call sooner prior to next visit it any questions/concerns arise. 05/04/2025 BMI 27.0-27.9,adul t (ICD-10 - Z68.27) 10/13/2024: Wt: 207.6 lbs, BMI: 36.77 patient struggles with weight loss regardless of lifestyle modifications. Currently does not have a well-balanced diet and often times eats meals on the go. Does not have current exercise regimen but would like to start CrossFit in November. Discussed the importance of a high-protein diet and limiting processed foods, sugar alcohol. Discussed the importance of increasing physical activity with a daily step count of 8 to 10K steps daily as well as beginning strength training. Discussed seca scan with patient. Patient has had recent labs obtained and will bring to next follow-up. Plan to begin tirzepatide 2.5 mg weekly injections. Discussed side effects and role of medication. Plan to send for prior authorization. Plan to follow-up in 4 weeks. 12/07/2024: Wt: 188.2 lbs, BMI: 33.33 patient currently on Zepbound 5 mg weekly injections. Patient reports severe appetite suppression. Denies any side effects. Patient reports drinking a protein shake in the morning with 42 g of protein and often times does not eat anything else for the rest of the day. Discussed risk versus benefit with this medication. Explained in great detail the importance of eating regardless of appetite in order to prevent further destruction of metabolism. Discussed risk of body in starvation mode and holding onto fat as opposed to losing it. Advised patient to eat at least 1100 lupe daily up to 1400 lupe. Advised patient to eat at least 100 g of protein daily. Advised patient to increase physical activity in order to promote muscle mass growth as well. Discussed with patient that we would not be able to increase medication dose at this time due to muscle loss. Discussed with patient if she does not increase muscle, we will need to discontinue medication. Discussed Seca scale results. Overall has lost 19 pounds, 14 pounds of fat mass and 4 pounds of muscle mass. Patient agreeable with plan. Plan to closely monitor. 02/01/2025: Wt: 174.4 lbs, BMI: 30.89 patient currently on Zepbound 5 mg weekly injections. Denies any side effects. Endorses adequate appetite suppression. Patient overall is lost 14 pounds since last visit, 11 pounds of fat mass and 4 pounds of muscle. Discussed in great detail that if patient continues to lose muscle we will have to discontinue medication. Recommend increasing protein with a goal of at least 80-100 g of protein daily. Patient recently started strength training and patient was congratulated on effort. Discussed staying consistent with at least 2 days of strength training weekly to promote muscle growth. Plan to stay on Zepbound 5 mg weekly injections and follow-up in 4 weeks. 03/15/2025: Wt: 161.9 lbs, BMI: 28.68 Currently on Zepbound 5 mg weekly injections. Denies any side effects. Dors is adequate appetite suppression. Overall lost 13 pounds. Has lost 10 pounds of fat mass and has lost 2 pounds of muscle loss. Discussed concern for muscle loss. Patient has begun hitting a goal of 100 g of protein daily. Has also begun strength training. Discussed further increasing protein as well as possibly increasing portion size. Recommend increasing weight with strength training. Plan to continue Zepbound 5 mg and follow-up in 4 weeks. 05/04/2025: Wt: 156.6 lbs, BMI: 27.74 patient overall has lost 5 pounds, has lost 10 pounds of fat mass and has gained 1-1/2 pound of muscle. Patient congratulated on success. Patient's goal is 140 pounds. Discussed how we will begin tapering medication once patient hits goal weight or a BMI of 23, whichever comes sooner. Plan to continue high-protein diet. Plan to continue strength training as well as swimming laps in the pool as this is demonstrated to promote muscle mass growth. Will increase Zepbound 7.5 mg and send 90-day supply as patient will be traveling to [place] to see her son. Plan follow-up in 4 weeks. #Depression: Well-managed. Plan to continue Zoloft 100 mg p.o. once daily. #Live donor #kidney transplant: Patient reports in July she recently donated kidney for transplant. Will try to obtain these records. Total time spent is was 30 minutes, with more face to face time This medication is prescribed by or in consultation with a board certified obesity and weight management physician Dr. Chyna Hicks The patient will continue exercise regimen with an emphasis on improving/increasing steps to at least 6,000-10,000 steps per day. Increasing cardio and strength training exercises as tolerated to improve weight loss and work on building muscle mass. Patient is committed to smarter eating with calorie counting and mindful eating. Limiting processed foods and carbohydrates and increasing leafy greens and lean proteins as well as fruits into their diet. Patient was counseled on the importance of eating local, organic food when possible. Patient has been counseled regarding effects of GLP/GIP-1 agonists and other FDA approved weight loss medications with regards to a multifactorial approach of weight loss as mentioned above and that the medication alone will not be sufficient to meet patients goals. We discussed holistic medication approach with emphasis on lifestyle modification. Discussed obesity as it increases risk of diabetes, cardiovascular disease, and/or organ damage. We spent a lot of time discussing the relationship between food, exercise, sleep, mental health, and obesity. We discussed the importance of having SECAs done every visit and having accountability done during these visits. That the scale is done to monitor not only weight loss but the body composition during medication management and healthy lifestyle changes. We discussed that if the patient is unable at times to financially afford this scale that we would rather waive the fee and have the scale done than have the patient not have the scale obtained. Will follow up with the patient in 4 weeks time to monitor weight loss. total time was 30 min, greater than 50 % of time was spent on care coordination Case discussed with collaborating physician Paulino Hicks who reviewed the assessment and plan. Chart, medications, labs, vital signs reviewed. Dictation was accomplished with the use of [employer] voice recognition software, prone to medical misidentifications and grammatical errors. This is unintentional and the practitioner does try to identify and correct these, but some could still be present. Please do not hesitate to contact practitioner for clarification. All questions answered to patients satisfaction. Patient verbalized understanding of diagnosis and treatments explained. To call sooner prior to next visit it any questions/concerns arise. 06/08/2025 BMI 25.0-25.9,adul t (ICD-10 - Z68.25) 10/13/2024: Wt: 207.6 lbs, BMI: 36.77 patient struggles with weight loss regardless of lifestyle modifications. Currently does not have a well-balanced diet and often times eats meals on the go. Does not have current exercise regimen but would like to start CrossFit in November. Discussed the importance of a high-protein diet and limiting processed foods, sugar alcohol. Discussed the importance of increasing physical activity with a daily step count of 8 to 10K steps daily as well as beginning strength training. Discussed seca scan with patient. Patient has had recent labs obtained and will bring to next follow-up. Plan to begin tirzepatide 2.5 mg weekly injections. Discussed side effects and role of medication. Plan to send for prior authorization. Plan to follow-up in 4 weeks. 12/07/2024: Wt: 188.2 lbs, BMI: 33.33 patient currently on Zepbound 5 mg weekly injections. Patient reports severe appetite suppression. Denies any side effects. Patient reports drinking a protein shake in the morning with 42 g of protein and often times does not eat anything else for the rest of the day. Discussed risk versus benefit with this medication. Explained in great detail the importance of eating regardless of appetite in order to prevent further destruction of metabolism. Discussed risk of body in starvation mode and holding onto fat as opposed to losing it. Advised patient to eat at least 1100 lupe daily up to 1400 lupe. Advised patient to eat at least 100 g of protein daily. Advised patient to increase physical activity in order to promote muscle mass growth as well. Discussed with patient that we would not be able to increase medication dose at this time due to muscle loss. Discussed with patient if she does not increase muscle, we will need to discontinue medication. Discussed Seca scale results. Overall has lost 19 pounds, 14 pounds of fat mass and 4 pounds of muscle mass. Patient agreeable with plan. Plan to closely monitor. 02/01/2025: Wt: 174.4 lbs, BMI: 30.89 patient currently on Zepbound 5 mg weekly injections. Denies any side effects. Endorses adequate appetite suppression. Patient overall is lost 14 pounds since last visit, 11 pounds of fat mass and 4 pounds of muscle. Discussed in great detail that if patient continues to lose muscle we will have to discontinue medication. Recommend increasing protein with a goal of at least 80-100 g of protein daily. Patient recently started strength training and patient was congratulated on effort. Discussed staying consistent with at least 2 days of strength training weekly to promote muscle growth. Plan to stay on Zepbound 5 mg weekly injections and follow-up in 4 weeks. 03/15/2025: Wt: 161.9 lbs, BMI: 28.68 Currently on Zepbound 5 mg weekly injections. Denies any side effects. Dors is adequate appetite suppression. Overall lost 13 pounds. Has lost 10 pounds of fat mass and has lost 2 pounds of muscle loss. Discussed concern for muscle loss. Patient has begun hitting a goal of 100 g of protein daily. Has also begun strength training. Discussed further increasing protein as well as possibly increasing portion size. Recommend increasing weight with strength training. Plan to continue Zepbound 5 mg and follow-up in 4 weeks. 05/04/2025: Wt: 156.6 lbs, BMI: 27.74 patient overall has lost 5 pounds, has lost 10 pounds of fat mass and has gained 1-1/2 pound of muscle. Patient congratulated on success. Patient's goal is 140 pounds. Discussed how we will begin tapering medication once patient hits goal weight or a BMI of 23, whichever comes sooner. Plan to continue high-protein diet. Plan to continue strength training as well as swimming laps in the pool as this is demonstrated to promote muscle mass growth. Will increase Zepbound 7.5 mg and send 90-day supply as patient will be traveling to [place] to see her son. Plan follow-up in 4 weeks. 06/08/2025: Wt: 145.5 lbs, BMI: 25.77 currently on Zepbound 7.5 mg weekly injections. Has [facility] will need to switch to Wegovy. Has not had any side effects thus far. Will switch to Wegovy 1 mg weekly injections. Plan to send to pharmacy. Plan to continue lifestyle modifications as addressed in HPI. Patient almost at goal weight, briefly discussed tapering process. #Depression: Well-managed. Plan to continue Zoloft 100 mg p.o. once daily. #Live donor #kidney transplant: Patient reports in July she recently donated kidney for transplant. Will try to obtain these records. Total time spent is was 30 minutes, with more face to face time This medication is prescribed by or in consultation with a board certified obesity and weight management physician Dr. Chyna Hicsk The patient will continue exercise regimen with an emphasis on improving/increasing steps to at least 6,000-10,000 steps per day. Increasing cardio and strength training exercises as tolerated to improve weight loss and work on building muscle mass. Patient is committed to smarter eating with calorie counting and mindful eating. Limiting processed foods and carbohydrates and increasing leafy greens and lean proteins as well as fruits into their diet. Patient was counseled on the importance of eating local, organic food when possible. Patient has been counseled regarding effects of GLP/GIP-1 agonists and other FDA approved weight loss medications with regards to a multifactorial approach of weight loss as mentioned above and that the medication alone will not be sufficient to meet patients goals. We discussed holistic medication approach with emphasis on lifestyle modification. Discussed obesity as it increases risk of diabetes, cardiovascular disease, and/or organ damage. We spent a lot of time discussing the relationship between food, exercise, sleep, mental health, and obesity. We discussed the importance of having SECAs done every visit and having accountability done during these visits. That the scale is done to monitor not only weight loss but the body composition during medication management and healthy lifestyle changes. We discussed that if the patient is unable at times to financially afford this scale that we would rather waive the fee and have the scale done than have the patient not have the scale obtained. Will follow up with the patient in 4 weeks time to monitor weight loss. total time was 30 min, greater than 50 % of time was spent on care coordination Case discussed with collaborating physician Paulino Hicks who reviewed the assessment and plan. Chart, medications, labs, vital signs reviewed. Dictation was accomplished with the use of [employer] voice recognition software, prone to medical misidentifications and grammatical errors. This is unintentional and the practitioner does try to identify and correct these, but some could still be present. Please do not hesitate to contact practitioner for clarification. All questions answered to patients satisfaction. Patient verbalized understanding of diagnosis and treatments explained. To call sooner prior to next visit it any questions/concerns arise. 06/08/2025 Overweight (BMI 25.0-29.9) (ICD-10 - E66.3) 10/13/2024: Wt: 207.6 lbs, BMI: 36.77 patient struggles with weight loss regardless of lifestyle modifications. Currently does not have a well-balanced diet and often times eats meals on the go. Does not have current exercise regimen but would like to start CrossFit in November. Discussed the importance of a high-protein diet and limiting processed foods, sugar alcohol. Discussed the importance of increasing physical activity with a daily step count of 8 to 10K steps daily as well as beginning strength training. Discussed seca scan with patient. Patient has had recent labs obtained and will bring to next follow-up. Plan to begin tirzepatide 2.5 mg weekly injections. Discussed side effects and role of medication. Plan to send for prior authorization. Plan to follow-up in 4 weeks. 12/07/2024: Wt: 188.2 lbs, BMI: 33.33 patient currently on Zepbound 5 mg weekly injections. Patient reports severe appetite suppression. Denies any side effects. Patient reports drinking a protein shake in the morning with 42 g of protein and often times does not eat anything else for the rest of the day. Discussed risk versus benefit with this medication. Explained in great detail the importance of eating regardless of appetite in order to prevent further destruction of metabolism. Discussed risk of body in starvation mode and holding onto fat as opposed to losing it. Advised patient to eat at least 1100 lupe daily up to 1400 lupe. Advised patient to eat at least 100 g of protein daily. Advised patient to increase physical activity in order to promote muscle mass growth as well. Discussed with patient that we would not be able to increase medication dose at this time due to muscle loss. Discussed with patient if she does not increase muscle, we will need to discontinue medication. Discussed Seca scale results. Overall has lost 19 pounds, 14 pounds of fat mass and 4 pounds of muscle mass. Patient agreeable with plan. Plan to closely monitor. 02/01/2025: Wt: 174.4 lbs, BMI: 30.89 patient currently on Zepbound 5 mg weekly injections. Denies any side effects. Endorses adequate appetite suppression. Patient overall is lost 14 pounds since last visit, 11 pounds of fat mass and 4 pounds of muscle. Discussed in great detail that if patient continues to lose muscle we will have to discontinue medication. Recommend increasing protein with a goal of at least 80-100 g of protein daily. Patient recently started strength training and patient was congratulated on effort. Discussed staying consistent with at least 2 days of strength training weekly to promote muscle growth. Plan to stay on Zepbound 5 mg weekly injections and follow-up in 4 weeks. 03/15/2025: Wt: 161.9 lbs, BMI: 28.68 Currently on Zepbound 5 mg weekly injections. Denies any side effects. Dors is adequate appetite suppression. Overall lost 13 pounds. Has lost 10 pounds of fat mass and has lost 2 pounds of muscle loss. Discussed concern for muscle loss. Patient has begun hitting a goal of 100 g of protein daily. Has also begun strength training. Discussed further increasing protein as well as possibly increasing portion size. Recommend increasing weight with strength training. Plan to continue Zepbound 5 mg and follow-up in 4 weeks. 05/04/2025: Wt: 156.6 lbs, BMI: 27.74 patient overall has lost 5 pounds, has lost 10 pounds of fat mass and has gained 1-1/2 pound of muscle. Patient congratulated on success. Patient's goal is 140 pounds. Discussed how we will begin tapering medication once patient hits goal weight or a BMI of 23, whichever comes sooner. Plan to continue high-protein diet. Plan to continue strength training as well as swimming laps in the pool as this is demonstrated to promote muscle mass growth. Will increase Zepbound 7.5 mg and send 90-day supply as patient will be traveling to [place] to see her son. Plan follow-up in 4 weeks. 06/08/2025: Wt: 145.5 lbs, BMI: 25.77 currently on Zepbound 7.5 mg weekly injections. Has [facility] will need to switch to Wegovy. Has not had any side effects thus far. Will switch to Wegovy 1 mg weekly injections. Plan to send to pharmacy. Plan to continue lifestyle modifications as addressed in HPI. Patient almost at goal weight, briefly discussed tapering process. #Depression: Well-managed. Plan to continue Zoloft 100 mg p.o. once daily. #Live donor #kidney transplant: Patient reports in July she recently donated kidney for transplant. Will try to obtain these records. Total time spent is was 30 minutes, with more face to face time This medication is prescribed by or in consultation with a board certified obesity and weight management physician Dr. Chyna Hicks The patient will continue exercise regimen with an emphasis on improving/increasing steps to at least 6,000-10,000 steps per day. Increasing cardio and strength training exercises as tolerated to improve weight loss and work on building muscle mass. Patient is committed to smarter eating with calorie counting and mindful eating. Limiting processed foods and carbohydrates and increasing leafy greens and lean proteins as well as fruits into their diet. Patient was counseled on the importance of eating local, organic food when possible. Patient has been counseled regarding effects of GLP/GIP-1 agonists and other FDA approved weight loss medications with regards to a multifactorial approach of weight loss as mentioned above and that the medication alone will not be sufficient to meet patients goals. We discussed holistic medication approach with emphasis on lifestyle modification. Discussed obesity as it increases risk of diabetes, cardiovascular disease, and/or organ damage. We spent a lot of time discussing the relationship between food, exercise, sleep, mental health, and obesity. We discussed the importance of having SECAs done every visit and having accountability done during these visits. That the scale is done to monitor not only weight loss but the body composition during medication management and healthy lifestyle changes. We discussed that if the patient is unable at times to financially afford this scale that we would rather waive the fee and have the scale done than have the patient not have the scale obtained. Will follow up with the patient in 4 weeks time to monitor weight loss. total time was 30 min, greater than 50 % of time was spent on care coordination Case discussed with collaborating physician Paulino Hicks who reviewed the assessment and plan. Chart, medications, labs, vital signs reviewed. Dictation was accomplished with the use of [employer] voice recognition software, prone to medical misidentifications and grammatical errors. This is unintentional and the practitioner does try to identify and correct these, but some could still be present. Please do not hesitate to contact practitioner for clarification. All questions answered to patients satisfaction. Patient verbalized understanding of diagnosis and treatments explained. To call sooner prior to next visit it any questions/concerns arise. 06/08/2025 Chronic depression (ICD-10 - F32.A) 10/13/2024: Wt: 207.6 lbs, BMI: 36.77 patient struggles with weight loss regardless of lifestyle modifications. Currently does not have a well-balanced diet and often times eats meals on the go. Does not have current exercise regimen but would like to start CrossFit in November. Discussed the importance of a high-protein diet and limiting processed foods, sugar alcohol. Discussed the importance of increasing physical activity with a daily step count of 8 to 10K steps daily as well as beginning strength training. Discussed seca scan with patient. Patient has had recent labs obtained and will bring to next follow-up. Plan to begin tirzepatide 2.5 mg weekly injections. Discussed side effects and role of medication. Plan to send for prior authorization. Plan to follow-up in 4 weeks. 12/07/2024: Wt: 188.2 lbs, BMI: 33.33 patient currently on Zepbound 5 mg weekly injections. Patient reports severe appetite suppression. Denies any side effects. Patient reports drinking a protein shake in the morning with 42 g of protein and often times does not eat anything else for the rest of the day. Discussed risk versus benefit with this medication. Explained in great detail the importance of eating regardless of appetite in order to prevent further destruction of metabolism. Discussed risk of body in starvation mode and holding onto fat as opposed to losing it. Advised patient to eat at least 1100 lupe daily up to 1400 lupe. Advised patient to eat at least 100 g of protein daily. Advised patient to increase physical activity in order to promote muscle mass growth as well. Discussed with patient that we would not be able to increase medication dose at this time due to muscle loss. Discussed with patient if she does not increase muscle, we will need to discontinue medication. Discussed Seca scale results. Overall has lost 19 pounds, 14 pounds of fat mass and 4 pounds of muscle mass. Patient agreeable with plan. Plan to closely monitor. 02/01/2025: Wt: 174.4 lbs, BMI: 30.89 patient currently on Zepbound 5 mg weekly injections. Denies any side effects. Endorses adequate appetite suppression. Patient overall is lost 14 pounds since last visit, 11 pounds of fat mass and 4 pounds of muscle. Discussed in great detail that if patient continues to lose muscle we will have to discontinue medication. Recommend increasing protein with a goal of at least 80-100 g of protein daily. Patient recently started strength training and patient was congratulated on effort. Discussed staying consistent with at least 2 days of strength training weekly to promote muscle growth. Plan to stay on Zepbound 5 mg weekly injections and follow-up in 4 weeks. 03/15/2025: Wt: 161.9 lbs, BMI: 28.68 Currently on Zepbound 5 mg weekly injections. Denies any side effects. Dors is adequate appetite suppression. Overall lost 13 pounds. Has lost 10 pounds of fat mass and has lost 2 pounds of muscle loss. Discussed concern for muscle loss. Patient has begun hitting a goal of 100 g of protein daily. Has also begun strength training. Discussed further increasing protein as well as possibly increasing portion size. Recommend increasing weight with strength training. Plan to continue Zepbound 5 mg and follow-up in 4 weeks. 05/04/2025: Wt: 156.6 lbs, BMI: 27.74 patient overall has lost 5 pounds, has lost 10 pounds of fat mass and has gained 1-1/2 pound of muscle. Patient congratulated on success. Patient's goal is 140 pounds. Discussed how we will begin tapering medication once patient hits goal weight or a BMI of 23, whichever comes sooner. Plan to continue high-protein diet. Plan to continue strength training as well as swimming laps in the pool as this is demonstrated to promote muscle mass growth. Will increase Zepbound 7.5 mg and send 90-day supply as patient will be traveling to [place] to see her son. Plan follow-up in 4 weeks. 06/08/2025: Wt: 145.5 lbs, BMI: 25.77 currently on Zepbound 7.5 mg weekly injections. Has [facility] will need to switch to Wegovy. Has not had any side effects thus far. Will switch to Wegovy 1 mg weekly injections. Plan to send to pharmacy. Plan to continue lifestyle modifications as addressed in HPI. Patient almost at goal weight, briefly discussed tapering process. #Depression: Well-managed. Plan to continue Zoloft 100 mg p.o. once daily. #Live donor #kidney transplant: Patient reports in July she recently donated kidney for transplant. Will try to obtain these records. Total time spent is was 30 minutes, with more face to face time This medication is prescribed by or in consultation with a board certified obesity and weight management physician Dr. Chyna Hicks The patient will continue exercise regimen with an emphasis on improving/increasing steps to at least 6,000-10,000 steps per day. Increasing cardio and strength training exercises as tolerated to improve weight loss and work on building muscle mass. Patient is committed to smarter eating with calorie counting and mindful eating. Limiting processed foods and carbohydrates and increasing leafy greens and lean proteins as well as fruits into their diet. Patient was counseled on the importance of eating local, organic food when possible. Patient has been counseled regarding effects of GLP/GIP-1 agonists and other FDA approved weight loss medications with regards to a multifactorial approach of weight loss as mentioned above and that the medication alone will not be sufficient to meet patients goals. We discussed holistic medication approach with emphasis on lifestyle modification. Discussed obesity as it increases risk of diabetes, cardiovascular disease, and/or organ damage. We spent a lot of time discussing the relationship between food, exercise, sleep, mental health, and obesity. We discussed the importance of having SECAs done every visit and having accountability done during these visits. That the scale is done to monitor not only weight loss but the body composition during medication management and healthy lifestyle changes. We discussed that if the patient is unable at times to financially afford this scale that we would rather waive the fee and have the scale done than have the patient not have the scale obtained. Will follow up with the patient in 4 weeks time to monitor weight loss. total time was 30 min, greater than 50 % of time was spent on care coordination Case discussed with collaborating physician Paulino Hicks who reviewed the assessment and plan. Chart, medications, labs, vital signs reviewed. Dictation was accomplished with the use of [employer] voice recognition software, prone to medical misidentifications and grammatical errors. This is unintentional and the practitioner does try to identify and correct these, but some could still be present. Please do not hesitate to contact practitioner for clarification. All questions answered to patients satisfaction. Patient verbalized understanding of diagnosis and treatments explained. To call sooner prior to next visit it any questions/concerns arise. 05/04/2025 Overweight (BMI 25.0-29.9) (ICD-10 - E66.3) 10/13/2024: Wt: 207.6 lbs, BMI: 36.77 patient struggles with weight loss regardless of lifestyle modifications. Currently does not have a well-balanced diet and often times eats meals on the go. Does not have current exercise regimen but would like to start CrossFit in November. Discussed the importance of a high-protein diet and limiting processed foods, sugar alcohol. Discussed the importance of increasing physical activity with a daily step count of 8 to 10K steps daily as well as beginning strength training. Discussed seca scan with patient. Patient has had recent labs obtained and will bring to next follow-up. Plan to begin tirzepatide 2.5 mg weekly injections. Discussed side effects and role of medication. Plan to send for prior authorization. Plan to follow-up in 4 weeks. 12/07/2024: Wt: 188.2 lbs, BMI: 33.33 patient currently on Zepbound 5 mg weekly injections. Patient reports severe appetite suppression. Denies any side effects. Patient reports drinking a protein shake in the morning with 42 g of protein and often times does not eat anything else for the rest of the day. Discussed risk versus benefit with this medication. Explained in great detail the importance of eating regardless of appetite in order to prevent further destruction of metabolism. Discussed risk of body in starvation mode and holding onto fat as opposed to losing it. Advised patient to eat at least 1100 lupe daily up to 1400 lupe. Advised patient to eat at least 100 g of protein daily. Advised patient to increase physical activity in order to promote muscle mass growth as well. Discussed with patient that we would not be able to increase medication dose at this time due to muscle loss. Discussed with patient if she does not increase muscle, we will need to discontinue medication. Discussed Seca scale results. Overall has lost 19 pounds, 14 pounds of fat mass and 4 pounds of muscle mass. Patient agreeable with plan. Plan to closely monitor. 02/01/2025: Wt: 174.4 lbs, BMI: 30.89 patient currently on Zepbound 5 mg weekly injections. Denies any side effects. Endorses adequate appetite suppression. Patient overall is lost 14 pounds since last visit, 11 pounds of fat mass and 4 pounds of muscle. Discussed in great detail that if patient continues to lose muscle we will have to discontinue medication. Recommend increasing protein with a goal of at least 80-100 g of protein daily. Patient recently started strength training and patient was congratulated on effort. Discussed staying consistent with at least 2 days of strength training weekly to promote muscle growth. Plan to stay on Zepbound 5 mg weekly injections and follow-up in 4 weeks. 03/15/2025: Wt: 161.9 lbs, BMI: 28.68 Currently on Zepbound 5 mg weekly injections. Denies any side effects. Dors is adequate appetite suppression. Overall lost 13 pounds. Has lost 10 pounds of fat mass and has lost 2 pounds of muscle loss. Discussed concern for muscle loss. Patient has begun hitting a goal of 100 g of protein daily. Has also begun strength training. Discussed further increasing protein as well as possibly increasing portion size. Recommend increasing weight with strength training. Plan to continue Zepbound 5 mg and follow-up in 4 weeks. 05/04/2025: Wt: 156.6 lbs, BMI: 27.74 patient overall has lost 5 pounds, has lost 10 pounds of fat mass and has gained 1-1/2 pound of muscle. Patient congratulated on success. Patient's goal is 140 pounds. Discussed how we will begin tapering medication once patient hits goal weight or a BMI of 23, whichever comes sooner. Plan to continue high-protein diet. Plan to continue strength training as well as swimming laps in the pool as this is demonstrated to promote muscle mass growth. Will increase Zepbound 7.5 mg and send 90-day supply as patient will be traveling to [place] to see her son. Plan follow-up in 4 weeks. #Depression: Well-managed. Plan to continue Zoloft 100 mg p.o. once daily. #Live donor #kidney transplant: Patient reports in July she recently donated kidney for transplant. Will try to obtain these records. Total time spent is was 30 minutes, with more face to face time This medication is prescribed by or in consultation with a board certified obesity and weight management physician Dr. Chyna Hicks The patient will continue exercise regimen with an emphasis on improving/increasing steps to at least 6,000-10,000 steps per day. Increasing cardio and strength training exercises as tolerated to improve weight loss and work on building muscle mass. Patient is committed to smarter eating with calorie counting and mindful eating. Limiting processed foods and carbohydrates and increasing leafy greens and lean proteins as well as fruits into their diet. Patient was counseled on the importance of eating local, organic food when possible. Patient has been counseled regarding effects of GLP/GIP-1 agonists and other FDA approved weight loss medications with regards to a multifactorial approach of weight loss as mentioned above and that the medication alone will not be sufficient to meet patients goals. We discussed holistic medication approach with emphasis on lifestyle modification. Discussed obesity as it increases risk of diabetes, cardiovascular disease, and/or organ damage. We spent a lot of time discussing the relationship between food, exercise, sleep, mental health, and obesity. We discussed the importance of having SECAs done every visit and having accountability done during these visits. That the scale is done to monitor not only weight loss but the body composition during medication management and healthy lifestyle changes. We discussed that if the patient is unable at times to financially afford this scale that we would rather waive the fee and have the scale done than have the patient not have the scale obtained. Will follow up with the patient in 4 weeks time to monitor weight loss. total time was 30 min, greater than 50 % of time was spent on care coordination Case discussed with collaborating physician Paulino Hicks who reviewed the assessment and plan. Chart, medications, labs, vital signs reviewed. Dictation was accomplished with the use of [employer] voice recognition software, prone to medical misidentifications and grammatical errors. This is unintentional and the practitioner does try to identify and correct these, but some could still be present. Please do not hesitate to contact practitioner for clarification. All questions answered to patients satisfaction. Patient verbalized understanding of diagnosis and treatments explained. To call sooner prior to next visit it any questions/concerns arise. 05/04/2025 Chronic depression (ICD-10 - F32.A) 10/13/2024: Wt: 207.6 lbs, BMI: 36.77 patient struggles with weight loss regardless of lifestyle modifications. Currently does not have a well-balanced diet and often times eats meals on the go. Does not have current exercise regimen but would like to start CrossFit in November. Discussed the importance of a high-protein diet and limiting processed foods, sugar alcohol. Discussed the importance of increasing physical activity with a daily step count of 8 to 10K steps daily as well as beginning strength training. Discussed seca scan with patient. Patient has had recent labs obtained and will bring to next follow-up. Plan to begin tirzepatide 2.5 mg weekly injections. Discussed side effects and role of medication. Plan to send for prior authorization. Plan to follow-up in 4 weeks. 12/07/2024: Wt: 188.2 lbs, BMI: 33.33 patient currently on Zepbound 5 mg weekly injections. Patient reports severe appetite suppression. Denies any side effects. Patient reports drinking a protein shake in the morning with 42 g of protein and often times does not eat anything else for the rest of the day. Discussed risk versus benefit with this medication. Explained in great detail the importance of eating regardless of appetite in order to prevent further destruction of metabolism. Discussed risk of body in starvation mode and holding onto fat as opposed to losing it. Advised patient to eat at least 1100 lupe daily up to 1400 lupe. Advised patient to eat at least 100 g of protein daily. Advised patient to increase physical activity in order to promote muscle mass growth as well. Discussed with patient that we would not be able to increase medication dose at this time due to muscle loss. Discussed with patient if she does not increase muscle, we will need to discontinue medication. Discussed Seca scale results. Overall has lost 19 pounds, 14 pounds of fat mass and 4 pounds of muscle mass. Patient agreeable with plan. Plan to closely monitor. 02/01/2025: Wt: 174.4 lbs, BMI: 30.89 patient currently on Zepbound 5 mg weekly injections. Denies any side effects. Endorses adequate appetite suppression. Patient overall is lost 14 pounds since last visit, 11 pounds of fat mass and 4 pounds of muscle. Discussed in great detail that if patient continues to lose muscle we will have to discontinue medication. Recommend increasing protein with a goal of at least 80-100 g of protein daily. Patient recently started strength training and patient was congratulated on effort. Discussed staying consistent with at least 2 days of strength training weekly to promote muscle growth. Plan to stay on Zepbound 5 mg weekly injections and follow-up in 4 weeks. 03/15/2025: Wt: 161.9 lbs, BMI: 28.68 Currently on Zepbound 5 mg weekly injections. Denies any side effects. Dors is adequate appetite suppression. Overall lost 13 pounds. Has lost 10 pounds of fat mass and has lost 2 pounds of muscle loss. Discussed concern for muscle loss. Patient has begun hitting a goal of 100 g of protein daily. Has also begun strength training. Discussed further increasing protein as well as possibly increasing portion size. Recommend increasing weight with strength training. Plan to continue Zepbound 5 mg and follow-up in 4 weeks. 05/04/2025: Wt: 156.6 lbs, BMI: 27.74 patient overall has lost 5 pounds, has lost 10 pounds of fat mass and has gained 1-1/2 pound of muscle. Patient congratulated on success. Patient's goal is 140 pounds. Discussed how we will begin tapering medication once patient hits goal weight or a BMI of 23, whichever comes sooner. Plan to continue high-protein diet. Plan to continue strength training as well as swimming laps in the pool as this is demonstrated to promote muscle mass growth. Will increase Zepbound 7.5 mg and send 90-day supply as patient will be traveling to [place] to see her son. Plan follow-up in 4 weeks. #Depression: Well-managed. Plan to continue Zoloft 100 mg p.o. once daily. #Live donor #kidney transplant: Patient reports in July she recently donated kidney for transplant. Will try to obtain these records. Total time spent is was 30 minutes, with more face to face time This medication is prescribed by or in consultation with a board certified obesity and weight management physician Dr. Chyna Hicks The patient will continue exercise regimen with an emphasis on improving/increasing steps to at least 6,000-10,000 steps per day. Increasing cardio and strength training exercises as tolerated to improve weight loss and work on building muscle mass. Patient is committed to smarter eating with calorie counting and mindful eating. Limiting processed foods and carbohydrates and increasing leafy greens and lean proteins as well as fruits into their diet. Patient was counseled on the importance of eating local, organic food when possible. Patient has been counseled regarding effects of GLP/GIP-1 agonists and other FDA approved weight loss medications with regards to a multifactorial approach of weight loss as mentioned above and that the medication alone will not be sufficient to meet patients goals. We discussed holistic medication approach with emphasis on lifestyle modification. Discussed obesity as it increases risk of diabetes, cardiovascular disease, and/or organ damage. We spent a lot of time discussing the relationship between food, exercise, sleep, mental health, and obesity. We discussed the importance of having SECAs done every visit and having accountability done during these visits. That the scale is done to monitor not only weight loss but the body composition during medication management and healthy lifestyle changes. We discussed that if the patient is unable at times to financially afford this scale that we would rather waive the fee and have the scale done than have the patient not have the scale obtained. Will follow up with the patient in 4 weeks time to monitor weight loss. total time was 30 min, greater than 50 % of time was spent on care coordination Case discussed with collaborating physician Paulino Hicks who reviewed the assessment and plan. Chart, medications, labs, vital signs reviewed. Dictation was accomplished with the use of [employer] voice recognition software, prone to medical misidentifications and grammatical errors. This is unintentional and the practitioner does try to identify and correct these, but some could still be present. Please do not hesitate to contact practitioner for clarification. All questions answered to patients satisfaction. Patient verbalized understanding of diagnosis and treatments explained. To call sooner prior to next visit it any questions/concerns arise. 03/15/2025 Chronic depression (ICD-10 - F32.A) 10/13/2024: Wt: 207.6 lbs, BMI: 36.77 patient struggles with weight loss regardless of lifestyle modifications. Currently does not have a well-balanced diet and often times eats meals on the go. Does not have current exercise regimen but would like to start CrossFit in November. Discussed the importance of a high-protein diet and limiting processed foods, sugar alcohol. Discussed the importance of increasing physical activity with a daily step count of 8 to 10K steps daily as well as beginning strength training. Discussed seca scan with patient. Patient has had recent labs obtained and will bring to next follow-up. Plan to begin tirzepatide 2.5 mg weekly injections. Discussed side effects and role of medication. Plan to send for prior authorization. Plan to follow-up in 4 weeks. 12/07/2024: Wt: 188.2 lbs, BMI: 33.33 patient currently on Zepbound 5 mg weekly injections. Patient reports severe appetite suppression. Denies any side effects. Patient reports drinking a protein shake in the morning with 42 g of protein and often times does not eat anything else for the rest of the day. Discussed risk versus benefit with this medication. Explained in great detail the importance of eating regardless of appetite in order to prevent further destruction of metabolism. Discussed risk of body in starvation mode and holding onto fat as opposed to losing it. Advised patient to eat at least 1100 lupe daily up to 1400 lupe. Advised patient to eat at least 100 g of protein daily. Advised patient to increase physical activity in order to promote muscle mass growth as well. Discussed with patient that we would not be able to increase medication dose at this time due to muscle loss. Discussed with patient if she does not increase muscle, we will need to discontinue medication. Discussed Seca scale results. Overall has lost 19 pounds, 14 pounds of fat mass and 4 pounds of muscle mass. Patient agreeable with plan. Plan to closely monitor. 02/01/2025: Wt: 174.4 lbs, BMI: 30.89 patient currently on Zepbound 5 mg weekly injections. Denies any side effects. Endorses adequate appetite suppression. Patient overall is lost 14 pounds since last visit, 11 pounds of fat mass and 4 pounds of muscle. Discussed in great detail that if patient continues to lose muscle we will have to discontinue medication. Recommend increasing protein with a goal of at least 80-100 g of protein daily. Patient recently started strength training and patient was congratulated on effort. Discussed staying consistent with at least 2 days of strength training weekly to promote muscle growth. Plan to stay on Zepbound 5 mg weekly injections and follow-up in 4 weeks. 03/15/2025: Wt: 161.9 lbs, BMI: 28.68 Currently on Zepbound 5 mg weekly injections. Denies any side effects. Dors is adequate appetite suppression. Overall lost 13 pounds. Has lost 10 pounds of fat mass and has lost 2 pounds of muscle loss. Discussed concern for muscle loss. Patient has begun hitting a goal of 100 g of protein daily. Has also begun strength training. Discussed further increasing protein as well as possibly increasing portion size. Recommend increasing weight with strength training. Plan to continue Zepbound 5 mg and follow-up in 4 weeks. #Low BP: Blood pressure 102/60. Denies any dizziness, lightheadedness, vision changes, shortness of breath. Will continue to monitor. #Depression: Well-managed. Plan to continue Zoloft 100 mg p.o. once daily. #Live donor #kidney transplant: Patient reports in July she recently donated kidney for transplant. Will try to obtain these records. Total time spent is was 30 minutes, with more face to face time This medication is prescribed by or in consultation with a board certified obesity and weight management physician Dr. Chyna Hicks The patient will continue exercise regimen with an emphasis on improving/increasing steps to at least 6,000-10,000 steps per day. Increasing cardio and strength training exercises as tolerated to improve weight loss and work on building muscle mass. Patient is committed to smarter eating with calorie counting and mindful eating. Limiting processed foods and carbohydrates and increasing leafy greens and lean proteins as well as fruits into their diet. Patient was counseled on the importance of eating local, organic food when possible. Patient has been counseled regarding effects of GLP/GIP-1 agonists and other FDA approved weight loss medications with regards to a multifactorial approach of weight loss as mentioned above and that the medication alone will not be sufficient to meet patients goals. We discussed holistic medication approach with emphasis on lifestyle modification. Discussed obesity as it increases risk of diabetes, cardiovascular disease, and/or organ damage. We spent a lot of time discussing the relationship between food, exercise, sleep, mental health, and obesity. We discussed the importance of having SECAs done every visit and having accountability done during these visits. That the scale is done to monitor not only weight loss but the body composition during medication management and healthy lifestyle changes. We discussed that if the patient is unable at times to financially afford this scale that we would rather waive the fee and have the scale done than have the patient not have the scale obtained. Will follow up with the patient in 4 weeks time to monitor weight loss. total time was 30 min, greater than 50 % of time was spent on care coordination Case discussed with collaborating physician Paulino Hicks who reviewed the assessment and plan. Chart, medications, labs, vital signs reviewed. Dictation was accomplished with the use of [employer] voice recognition software, prone to medical misidentifications and grammatical errors. This is unintentional and the practitioner does try to identify and correct these, but some could still be present. Please do not hesitate to contact practitioner for clarification. All questions answered to patients satisfaction. Patient verbalized understanding of diagnosis and treatments explained. To call sooner prior to next visit it any questions/concerns arise. 02/01/2025 Chronic depression (ICD-10 - F32.A) 10/13/2024: Wt: 207.6 lbs, BMI: 36.77 patient struggles with weight loss regardless of lifestyle modifications. Currently does not have a well-balanced diet and often times eats meals on the go. Does not have current exercise regimen but would like to start CrossFit in November. Discussed the importance of a high-protein diet and limiting processed foods, sugar alcohol. Discussed the importance of increasing physical activity with a daily step count of 8 to 10K steps daily as well as beginning strength training. Discussed seca scan with patient. Patient has had recent labs obtained and will bring to next follow-up. Plan to begin tirzepatide 2.5 mg weekly injections. Discussed side effects and role of medication. Plan to send for prior authorization. Plan to follow-up in 4 weeks. 12/07/2024: Wt: 188.2 lbs, BMI: 33.33 patient currently on Zepbound 5 mg weekly injections. Patient reports severe appetite suppression. Denies any side effects. Patient reports drinking a protein shake in the morning with 42 g of protein and often times does not eat anything else for the rest of the day. Discussed risk versus benefit with this medication. Explained in great detail the importance of eating regardless of appetite in order to prevent further destruction of metabolism. Discussed risk of body in starvation mode and holding onto fat as opposed to losing it. Advised patient to eat at least 1100 lupe daily up to 1400 lupe. Advised patient to eat at least 100 g of protein daily. Advised patient to increase physical activity in order to promote muscle mass growth as well. Discussed with patient that we would not be able to increase medication dose at this time due to muscle loss. Discussed with patient if she does not increase muscle, we will need to discontinue medication. Discussed Seca scale results. Overall has lost 19 pounds, 14 pounds of fat mass and 4 pounds of muscle mass. Patient agreeable with plan. Plan to closely monitor. 02/01/2025: Wt: 174.4 lbs, BMI: 30.89 patient currently on Zepbound 5 mg weekly injections. Denies any side effects. Endorses adequate appetite suppression. Patient overall is lost 14 pounds since last visit, 11 pounds of fat mass and 4 pounds of muscle. Discussed in great detail that if patient continues to lose muscle we will have to discontinue medication. Recommend increasing protein with a goal of at least 80-100 g of protein daily. Patient recently started strength training and patient was congratulated on effort. Discussed staying consistent with at least 2 days of strength training weekly to promote muscle growth. Plan to stay on Zepbound 5 mg weekly injections and follow-up in 4 weeks. #Fatigue: Patient reports extreme fatigue. Would like to try JACQUELYN vitamin B12 injection today in office. Advised to schedule follow-up for an injection next week. #Depression: Well-managed. Plan to continue Zoloft 100 mg p.o. once daily. #Live donor #kidney transplant: Patient reports in July she recently donated kidney for transplant. Will try to obtain these records. Total time spent is was 30 minutes, with more face to face time This medication is prescribed by or in consultation with a board certified obesity and weight management physician Dr. Chyna Hicks The patient will continue exercise regimen with an emphasis on improving/increasing steps to at least 6,000-10,000 steps per day. Increasing cardio and strength training exercises as tolerated to improve weight loss and work on building muscle mass. Patient is committed to smarter eating with calorie counting and mindful eating. Limiting processed foods and carbohydrates and increasing leafy greens and lean proteins as well as fruits into their diet. Patient was counseled on the importance of eating local, organic food when possible. Patient has been counseled regarding effects of GLP/GIP-1 agonists and other FDA approved weight loss medications with regards to a multifactorial approach of weight loss as mentioned above and that the medication alone will not be sufficient to meet patients goals. We discussed holistic medication approach with emphasis on lifestyle modification. Discussed obesity as it increases risk of diabetes, cardiovascular disease, and/or organ damage. We spent a lot of time discussing the relationship between food, exercise, sleep, mental health, and obesity. We discussed the importance of having SECAs done every visit and having accountability done during these visits. That the scale is done to monitor not only weight loss but the body composition during medication management and healthy lifestyle changes. We discussed that if the patient is unable at times to financially afford this scale that we would rather waive the fee and have the scale done than have the patient not have the scale obtained. Will follow up with the patient in 4 weeks time to monitor weight loss. total time was 30 min, greater than 50 % of time was spent on care coordination Case discussed with collaborating physician Paulino Hicks who reviewed the assessment and plan. Chart, medications, labs, vital signs reviewed. Dictation was accomplished with the use of [employer] voice recognition software, prone to medical misidentifications and grammatical errors. This is unintentional and the practitioner does try to identify and correct these, but some could still be present. Please do not hesitate to contact practitioner for clarification. All questions answered to patients satisfaction. Patient verbalized understanding of diagnosis and treatments explained. To call sooner prior to next visit it any questions/concerns arise. 10/13/2024 Mild depression (ICD-10 - F32.A) Patient was reassured and welcomed to the practice. 10/13/2024: Wt: 207.6 lbs, BMI: 36.77 patient struggles with weight loss regardless of lifestyle modifications. Currently does not have a well-balanced diet and often times eats meals on the go. Does not have current exercise regimen but would like to start CrossFit in November. Discussed the importance of a high-protein diet and limiting processed foods, sugar alcohol. Discussed the importance of increasing physical activity with a daily step count of 8 to 10K steps daily as well as beginning strength training. Discussed seca scan with patient. Patient has had recent labs obtained and will bring to next follow-up. Plan to begin tirzepatide 2.5 mg weekly injections. Discussed side effects and role of medication. Plan to send for prior authorization. Plan to follow-up in 4 weeks. #Depression: Well-managed. Plan to continue Zoloft 100 mg p.o. once daily. #Live donor #kidney transplant: Patient reports in July she recently donated kidney for transplant. Will try to obtain these records. We discussed that we stress a hollistic medical approach with emphasis on lifestyle modification. Patient was informed that a healthy lifestyle with exercise and good eating habits can help reduce his risk of medical complications. Patient is explained that obesity increases his risk of diabetes, cardiovascular disease, or organ damage. We spent a lot of time discussing the relationship between food, exercise, sleep, mental health and obesity. Patient was counseled on the importance EATING local, organic food when possible. Patient was educated on clean 15 and dirty dozen. I provided information about reading books called The Food Rules by Hema Brito and Eat Fat Get Lean by Dr Jun Apple. Self education is important in the journey for weight management. Patient was offered diagnostic testing/ SECA scale. We want to measure visceral adiposity, advanced body composition, adverse lipids, fatty acid balance, risk for heart disease and atherosclerosis, markers of inflammation and genetic susceptibility. Patient was counseled on weight management and was advised to lose weight using A. Meal Replacement Products Patient was educated on the replacement products called optifast. This is a good way of taking fixed amount of calories. It has been shown in studies to be ineffective weight management tool. This however has to be coupled with lifestyle intervention as well as laboratory data and EKG monitoring. It is impossible to know how a person will tolerate complete meal replacement. The side effects of meal replacement and weight loss could include syncopal attacks, dizziness, gallstones, potential cholecystectomy, possible heart attack and even . The benefits of meal replacement would be potential weight loss but no guarantees can be made. Meal replacement products are not covered by insurance. Once the patient has bought these products we cannot return them B. Lifestyle management which includes several strategies as below 1. Eat a low carbohydrate good fat good protein diet. Eliminate refined carbohydrates from the diet. Limit sugared beverages. Eat local organic when possible. Cook your own meals. Read food labels. Focus on healthy snacks. Portion control and food with low glycemic index 2. Exercise regularly. Try to get at least 6000 steps a day. Use a predominant to track activity level. Consider using apps like 7 minute excercise, myfitLife Metricspal, lose it, stick as needed for self-monitoring and weight management. Consider group exercises. Consider hiring a personalized living assistant. Regular exercise is mendez to sustainable health and prevents as a buffer against weight regain 3. Sleep is most important for healing. Try to sleep at least 6-8 hours a night. A good quality sleep needs a sleep ritual with ideal room temperature of around 68. It might help to take a shower and have no electronics in the room and sleep in a very dark room without artificial light. Start sleep routine and get up early in the morning and go to bed on time. 4. Make a social connection. Surround yourself with positive people with positive energy. Connect with friends and family. 5. Get into the habit of meditating and mindfulness while doing everything. 6. Go outside and connect with nature. C. Prescription medications Patient was educated on the use of prescription medications for medical weight loss. This is a growing list and includes phentermine, Topamax, Qsymia, contrave, belviq and saxenda, wegovy etc. All prescription medications could have side effects including but not limited to kidney stones, seizure disorder, cardiac arrhythmias, heart attack, pancreatitis, GI effects, Etc. Patient was encouraged to read the prescription insert and discuss with their pharmacist to make an informed decision about taking medication and know that these medications are being prescribed with good intentions and we do not know how a patient would react to her medication. Some medications are FDA approved for weight loss and there is also off label use depending on patient's inability to afford medications in an attempt to lose weight. D. Behavioral counseling was done to establish a relationship between food and an mood. Patient was provided information about local counseling and psychiatry and Dr Koo at [facility]. We would like to cover regular topics and build on low glycemic eating exercise mindful eating, using yoga and meditation along with deep breathing and connecting with friends and family. E. MASS PAT reviewed, Patient's current medications were reviewed and opinion was given on medication that can cause weight gain and can be substituted F. Patient was assessed for risk with obesity including and not limiting to atherosclerosis, heart disease, stroke, kidney disease, restrictive lung disease, irritable bowel syndrome and overall mortality. Risk of developing prediabetes diabetes and metabolic syndrome was discussed G. Therapeutic plan: We have decided to make therapeutic plan which would include choosing wisely on calories restricting portion getting active, tracking weight, getting good quality sleep and working on time management H. Patient will follow up in 4 weeks for weight management Total time spent today was 60 minutes of which greater than 50% was spent on coordinating and counseling Case discussed with collaborating physician Fany Hicks who reviewed the assessment and plan. Chart, medications, labs, vital signs reviewed. Dictation was accomplished with the use of [employer] voice recognition software, prone to medical misidentifications and grammatical errors. This is unintentional and the practitioner does try to identify and correct these, but some could still be present. Please do not hesitate to contact practitioner for clarification. All questions answered to patients satisfaction. Patient verbalized understanding of diagnosis and treatments explained. To call sooner prior to next visit it any questions/concerns arise. 12/07/2024 Chronic depression (ICD-10 - F32.A) 10/13/2024: Wt: 207.6 lbs, BMI: 36.77 patient struggles with weight loss regardless of lifestyle modifications. Currently does not have a well-balanced diet and often times eats meals on the go. Does not have current exercise regimen but would like to start CrossFit in November. Discussed the importance of a high-protein diet and limiting processed foods, sugar alcohol. Discussed the importance of increasing physical activity with a daily step count of 8 to 10K steps daily as well as beginning strength training. Discussed seca scan with patient. Patient has had recent labs obtained and will bring to next follow-up. Plan to begin tirzepatide 2.5 mg weekly injections. Discussed side effects and role of medication. Plan to send for prior authorization. Plan to follow-up in 4 weeks. 12/07/2024: Wt: 188.2 lbs, BMI: 33.33 patient currently on Zepbound 5 mg weekly injections. Patient reports severe appetite suppression. Denies any side effects. Patient reports drinking a protein shake in the morning with 42 g of protein and often times does not eat anything else for the rest of the day. Discussed risk versus benefit with this medication. Explained in great detail the importance of eating regardless of appetite in order to prevent further destruction of metabolism. Discussed risk of body in starvation mode and holding onto fat as opposed to losing it. Advised patient to eat at least 1100 lupe daily up to 1400 lupe. Advised patient to eat at least 100 g of protein daily. Advised patient to increase physical activity in order to promote muscle mass growth as well. Discussed with patient that we would not be able to increase medication dose at this time due to muscle loss. Discussed with patient if she does not increase muscle, we will need to discontinue medication. Discussed Seca scale results. Overall has lost 19 pounds, 14 pounds of fat mass and 4 pounds of muscle mass. Patient agreeable with plan. Plan to closely monitor. #Depression: Well-managed. Plan to continue Zoloft 100 mg p.o. once daily. #Live donor #kidney transplant: Patient reports in July she recently donated kidney for transplant. Will try to obtain these records. Total time spent is was 30 minutes, with more face to face time This medication is prescribed by or in consultation with a board certified obesity and weight management physician Dr. Chyna Hicks The patient will continue exercise regimen with an emphasis on improving/increasing steps to at least 6,000-10,000 steps per day. Increasing cardio and strength training exercises as tolerated to improve weight loss and work on building muscle mass. Patient is committed to smarter eating with calorie counting and mindful eating. Limiting processed foods and carbohydrates and increasing leafy greens and lean proteins as well as fruits into their diet. Patient was counseled on the importance of eating local, organic food when possible. Patient has been counseled regarding effects of GLP/GIP-1 agonists and other FDA approved weight loss medications with regards to a multifactorial approach of weight loss as mentioned above and that the medication alone will not be sufficient to meet patients goals. We discussed holistic medication approach with emphasis on lifestyle modification. Discussed obesity as it increases risk of diabetes, cardiovascular disease, and/or organ damage. We spent a lot of time discussing the relationship between food, exercise, sleep, mental health, and obesity. We discussed the importance of having SECAs done every visit and having accountability done during these visits. That the scale is done to monitor not only weight loss but the body composition during medication management and healthy lifestyle changes. We discussed that if the patient is unable at times to financially afford this scale that we would rather waive the fee and have the scale done than have the patient not have the scale obtained. Will follow up with the patient in 4 weeks time to monitor weight loss. total time was 30 min, greater than 50 % of time was spent on care coordination Case discussed with collaborating physician Paulino Hicks who reviewed the assessment and plan. Chart, medications, labs, vital signs reviewed. Dictation was accomplished with the use of [employer] voice recognition software, prone to medical misidentifications and grammatical errors. This is unintentional and the practitioner does try to identify and correct these, but some could still be present. Please do not hesitate to contact practitioner for clarification. All questions answered to patients satisfaction. Patient verbalized understanding of diagnosis and treatments explained. To call sooner prior to next visit it any questions/concerns arise. 02/01/2025 Other fatigue (ICD-10 - R53.83) 10/13/2024: Wt: 207.6 lbs, BMI: 36.77 patient struggles with weight loss regardless of lifestyle modifications. Currently does not have a well-balanced diet and often times eats meals on the go. Does not have current exercise regimen but would like to start CrossFit in November. Discussed the importance of a high-protein diet and limiting processed foods, sugar alcohol. Discussed the importance of increasing physical activity with a daily step count of 8 to 10K steps daily as well as beginning strength training. Discussed seca scan with patient. Patient has had recent labs obtained and will bring to next follow-up. Plan to begin tirzepatide 2.5 mg weekly injections. Discussed side effects and role of medication. Plan to send for prior authorization. Plan to follow-up in 4 weeks. 12/07/2024: Wt: 188.2 lbs, BMI: 33.33 patient currently on Zepbound 5 mg weekly injections. Patient reports severe appetite suppression. Denies any side effects. Patient reports drinking a protein shake in the morning with 42 g of protein and often times does not eat anything else for the rest of the day. Discussed risk versus benefit with this medication. Explained in great detail the importance of eating regardless of appetite in order to prevent further destruction of metabolism. Discussed risk of body in starvation mode and holding onto fat as opposed to losing it. Advised patient to eat at least 1100 lupe daily up to 1400 lupe. Advised patient to eat at least 100 g of protein daily. Advised patient to increase physical activity in order to promote muscle mass growth as well. Discussed with patient that we would not be able to increase medication dose at this time due to muscle loss. Discussed with patient if she does not increase muscle, we will need to discontinue medication. Discussed Seca scale results. Overall has lost 19 pounds, 14 pounds of fat mass and 4 pounds of muscle mass. Patient agreeable with plan. Plan to closely monitor. 02/01/2025: Wt: 174.4 lbs, BMI: 30.89 patient currently on Zepbound 5 mg weekly injections. Denies any side effects. Endorses adequate appetite suppression. Patient overall is lost 14 pounds since last visit, 11 pounds of fat mass and 4 pounds of muscle. Discussed in great detail that if patient continues to lose muscle we will have to discontinue medication. Recommend increasing protein with a goal of at least 80-100 g of protein daily. Patient recently started strength training and patient was congratulated on effort. Discussed staying consistent with at least 2 days of strength training weekly to promote muscle growth. Plan to stay on Zepbound 5 mg weekly injections and follow-up in 4 weeks. #Fatigue: Patient reports extreme fatigue. Would like to try JACQUELYN vitamin B12 injection today in office. Advised to schedule follow-up for an injection next week. #Depression: Well-managed. Plan to continue Zoloft 100 mg p.o. once daily. #Live donor #kidney transplant: Patient reports in July she recently donated kidney for transplant. Will try to obtain these records. Total time spent is was 30 minutes, with more face to face time This medication is prescribed by or in consultation with a board certified obesity and weight management physician Dr. Chyna Hicks The patient will continue exercise regimen with an emphasis on improving/increasing steps to at least 6,000-10,000 steps per day. Increasing cardio and strength training exercises as tolerated to improve weight loss and work on building muscle mass. Patient is committed to smarter eating with calorie counting and mindful eating. Limiting processed foods and carbohydrates and increasing leafy greens and lean proteins as well as fruits into their diet. Patient was counseled on the importance of eating local, organic food when possible. Patient has been counseled regarding effects of GLP/GIP-1 agonists and other FDA approved weight loss medications with regards to a multifactorial approach of weight loss as mentioned above and that the medication alone will not be sufficient to meet patients goals. We discussed holistic medication approach with emphasis on lifestyle modification. Discussed obesity as it increases risk of diabetes, cardiovascular disease, and/or organ damage. We spent a lot of time discussing the relationship between food, exercise, sleep, mental health, and obesity. We discussed the importance of having SECAs done every visit and having accountability done during these visits. That the scale is done to monitor not only weight loss but the body composition during medication management and healthy lifestyle changes. We discussed that if the patient is unable at times to financially afford this scale that we would rather waive the fee and have the scale done than have the patient not have the scale obtained. Will follow up with the patient in 4 weeks time to monitor weight loss. total time was 30 min, greater than 50 % of time was spent on care coordination Case discussed with collaborating physician Paulino Hicks who reviewed the assessment and plan. Chart, medications, labs, vital signs reviewed. Dictation was accomplished with the use of [employer] voice recognition software, prone to medical misidentifications and grammatical errors. This is unintentional and the practitioner does try to identify and correct these, but some could still be present. Please do not hesitate to contact practitioner for clarification. All questions answered to patients satisfaction. Patient verbalized understanding of diagnosis and treatments explained. To call sooner prior to next visit it any questions/concerns arise. 03/15/2025 Encounter for examination of blood pressure without abnormal findings (ICD-10 - Z01.30) 10/13/2024: Wt: 207.6 lbs, BMI: 36.77 patient struggles with weight loss regardless of lifestyle modifications. Currently does not have a well-balanced diet and often times eats meals on the go. Does not have current exercise regimen but would like to start CrossFit in November. Discussed the importance of a high-protein diet and limiting processed foods, sugar alcohol. Discussed the importance of increasing physical activity with a daily step count of 8 to 10K steps daily as well as beginning strength training. Discussed seca scan with patient. Patient has had recent labs obtained and will bring to next follow-up. Plan to begin tirzepatide 2.5 mg weekly injections. Discussed side effects and role of medication. Plan to send for prior authorization. Plan to follow-up in 4 weeks. 12/07/2024: Wt: 188.2 lbs, BMI: 33.33 patient currently on Zepbound 5 mg weekly injections. Patient reports severe appetite suppression. Denies any side effects. Patient reports drinking a protein shake in the morning with 42 g of protein and often times does not eat anything else for the rest of the day. Discussed risk versus benefit with this medication. Explained in great detail the importance of eating regardless of appetite in order to prevent further destruction of metabolism. Discussed risk of body in starvation mode and holding onto fat as opposed to losing it. Advised patient to eat at least 1100 lupe daily up to 1400 lupe. Advised patient to eat at least 100 g of protein daily. Advised patient to increase physical activity in order to promote muscle mass growth as well. Discussed with patient that we would not be able to increase medication dose at this time due to muscle loss. Discussed with patient if she does not increase muscle, we will need to discontinue medication. Discussed Seca scale results. Overall has lost 19 pounds, 14 pounds of fat mass and 4 pounds of muscle mass. Patient agreeable with plan. Plan to closely monitor. 02/01/2025: Wt: 174.4 lbs, BMI: 30.89 patient currently on Zepbound 5 mg weekly injections. Denies any side effects. Endorses adequate appetite suppression. Patient overall is lost 14 pounds since last visit, 11 pounds of fat mass and 4 pounds of muscle. Discussed in great detail that if patient continues to lose muscle we will have to discontinue medication. Recommend increasing protein with a goal of at least 80-100 g of protein daily. Patient recently started strength training and patient was congratulated on effort. Discussed staying consistent with at least 2 days of strength training weekly to promote muscle growth. Plan to stay on Zepbound 5 mg weekly injections and follow-up in 4 weeks. 03/15/2025: Wt: 161.9 lbs, BMI: 28.68 Currently on Zepbound 5 mg weekly injections. Denies any side effects. Dors is adequate appetite suppression. Overall lost 13 pounds. Has lost 10 pounds of fat mass and has lost 2 pounds of muscle loss. Discussed concern for muscle loss. Patient has begun hitting a goal of 100 g of protein daily. Has also begun strength training. Discussed further increasing protein as well as possibly increasing portion size. Recommend increasing weight with strength training. Plan to continue Zepbound 5 mg and follow-up in 4 weeks. #Low BP: Blood pressure 102/60. Denies any dizziness, lightheadedness, vision changes, shortness of breath. Will continue to monitor. #Depression: Well-managed. Plan to continue Zoloft 100 mg p.o. once daily. #Live donor #kidney transplant: Patient reports in July she recently donated kidney for transplant. Will try to obtain these records. Total time spent is was 30 minutes, with more face to face time This medication is prescribed by or in consultation with a board certified obesity and weight management physician Dr. Chyna Hicks The patient will continue exercise regimen with an emphasis on improving/increasing steps to at least 6,000-10,000 steps per day. Increasing cardio and strength training exercises as tolerated to improve weight loss and work on building muscle mass. Patient is committed to smarter eating with calorie counting and mindful eating. Limiting processed foods and carbohydrates and increasing leafy greens and lean proteins as well as fruits into their diet. Patient was counseled on the importance of eating local, organic food when possible. Patient has been counseled regarding effects of GLP/GIP-1 agonists and other FDA approved weight loss medications with regards to a multifactorial approach of weight loss as mentioned above and that the medication alone will not be sufficient to meet patients goals. We discussed holistic medication approach with emphasis on lifestyle modification. Discussed obesity as it increases risk of diabetes, cardiovascular disease, and/or organ damage. We spent a lot of time discussing the relationship between food, exercise, sleep, mental health, and obesity. We discussed the importance of having SECAs done every visit and having accountability done during these visits. That the scale is done to monitor not only weight loss but the body composition during medication management and healthy lifestyle changes. We discussed that if the patient is unable at times to financially afford this scale that we would rather waive the fee and have the scale done than have the patient not have the scale obtained. Will follow up with the patient in 4 weeks time to monitor weight loss. total time was 30 min, greater than 50 % of time was spent on care coordination Case discussed with collaborating physician Paulino Hicks who reviewed the assessment and plan. Chart, medications, labs, vital signs reviewed. Dictation was accomplished with the use of [employer] voice recognition software, prone to medical misidentifications and grammatical errors. This is unintentional and the practitioner does try to identify and correct these, but some could still be present. Please do not hesitate to contact practitioner for clarification. All questions answered to patients satisfaction. Patient verbalized understanding of diagnosis and treatments explained. To call sooner prior to next visit it any questions/concerns arise. 05/04/2025 Encounter for examination of blood pressure without abnormal findings (ICD-10 - Z01.30) 10/13/2024: Wt: 207.6 lbs, BMI: 36.77 patient struggles with weight loss regardless of lifestyle modifications. Currently does not have a well-balanced diet and often times eats meals on the go. Does not have current exercise regimen but would like to start CrossFit in November. Discussed the importance of a high-protein diet and limiting processed foods, sugar alcohol. Discussed the importance of increasing physical activity with a daily step count of 8 to 10K steps daily as well as beginning strength training. Discussed seca scan with patient. Patient has had recent labs obtained and will bring to next follow-up. Plan to begin tirzepatide 2.5 mg weekly injections. Discussed side effects and role of medication. Plan to send for prior authorization. Plan to follow-up in 4 weeks. 12/07/2024: Wt: 188.2 lbs, BMI: 33.33 patient currently on Zepbound 5 mg weekly injections. Patient reports severe appetite suppression. Denies any side effects. Patient reports drinking a protein shake in the morning with 42 g of protein and often times does not eat anything else for the rest of the day. Discussed risk versus benefit with this medication. Explained in great detail the importance of eating regardless of appetite in order to prevent further destruction of metabolism. Discussed risk of body in starvation mode and holding onto fat as opposed to losing it. Advised patient to eat at least 1100 lupe daily up to 1400 lupe. Advised patient to eat at least 100 g of protein daily. Advised patient to increase physical activity in order to promote muscle mass growth as well. Discussed with patient that we would not be able to increase medication dose at this time due to muscle loss. Discussed with patient if she does not increase muscle, we will need to discontinue medication. Discussed Seca scale results. Overall has lost 19 pounds, 14 pounds of fat mass and 4 pounds of muscle mass. Patient agreeable with plan. Plan to closely monitor. 02/01/2025: Wt: 174.4 lbs, BMI: 30.89 patient currently on Zepbound 5 mg weekly injections. Denies any side effects. Endorses adequate appetite suppression. Patient overall is lost 14 pounds since last visit, 11 pounds of fat mass and 4 pounds of muscle. Discussed in great detail that if patient continues to lose muscle we will have to discontinue medication. Recommend increasing protein with a goal of at least 80-100 g of protein daily. Patient recently started strength training and patient was congratulated on effort. Discussed staying consistent with at least 2 days of strength training weekly to promote muscle growth. Plan to stay on Zepbound 5 mg weekly injections and follow-up in 4 weeks. 03/15/2025: Wt: 161.9 lbs, BMI: 28.68 Currently on Zepbound 5 mg weekly injections. Denies any side effects. Dors is adequate appetite suppression. Overall lost 13 pounds. Has lost 10 pounds of fat mass and has lost 2 pounds of muscle loss. Discussed concern for muscle loss. Patient has begun hitting a goal of 100 g of protein daily. Has also begun strength training. Discussed further increasing protein as well as possibly increasing portion size. Recommend increasing weight with strength training. Plan to continue Zepbound 5 mg and follow-up in 4 weeks. 05/04/2025: Wt: 156.6 lbs, BMI: 27.74 patient overall has lost 5 pounds, has lost 10 pounds of fat mass and has gained 1-1/2 pound of muscle. Patient congratulated on success. Patient's goal is 140 pounds. Discussed how we will begin tapering medication once patient hits goal weight or a BMI of 23, whichever comes sooner. Plan to continue high-protein diet. Plan to continue strength training as well as swimming laps in the pool as this is demonstrated to promote muscle mass growth. Will increase Zepbound 7.5 mg and send 90-day supply as patient will be traveling to [place] to see her son. Plan follow-up in 4 weeks. #Depression: Well-managed. Plan to continue Zoloft 100 mg p.o. once daily. #Live donor #kidney transplant: Patient reports in July she recently donated kidney for transplant. Will try to obtain these records. Total time spent is was 30 minutes, with more face to face time This medication is prescribed by or in consultation with a board certified obesity and weight management physician Dr. Chyna Hicks The patient will continue exercise regimen with an emphasis on improving/increasing steps to at least 6,000-10,000 steps per day. Increasing cardio and strength training exercises as tolerated to improve weight loss and work on building muscle mass. Patient is committed to smarter eating with calorie counting and mindful eating. Limiting processed foods and carbohydrates and increasing leafy greens and lean proteins as well as fruits into their diet. Patient was counseled on the importance of eating local, organic food when possible. Patient has been counseled regarding effects of GLP/GIP-1 agonists and other FDA approved weight loss medications with regards to a multifactorial approach of weight loss as mentioned above and that the medication alone will not be sufficient to meet patients goals. We discussed holistic medication approach with emphasis on lifestyle modification. Discussed obesity as it increases risk of diabetes, cardiovascular disease, and/or organ damage. We spent a lot of time discussing the relationship between food, exercise, sleep, mental health, and obesity. We discussed the importance of having SECAs done every visit and having accountability done during these visits. That the scale is done to monitor not only weight loss but the body composition during medication management and healthy lifestyle changes. We discussed that if the patient is unable at times to financially afford this scale that we would rather waive the fee and have the scale done than have the patient not have the scale obtained. Will follow up with the patient in 4 weeks time to monitor weight loss. total time was 30 min, greater than 50 % of time was spent on care coordination Case discussed with collaborating physician Paulino Hicks who reviewed the assessment and plan. Chart, medications, labs, vital signs reviewed. Dictation was accomplished with the use of [employer] voice recognition software, prone to medical misidentifications and grammatical errors. This is unintentional and the practitioner does try to identify and correct these, but some could still be present. Please do not hesitate to contact practitioner for clarification. All questions answered to patients satisfaction. Patient verbalized understanding of diagnosis and treatments explained. To call sooner prior to next visit it any questions/concerns arise. 06/08/2025 Encounter for examination of blood pressure without abnormal findings (ICD-10 - Z01.30) 10/13/2024: Wt: 207.6 lbs, BMI: 36.77 patient struggles with weight loss regardless of lifestyle modifications. Currently does not have a well-balanced diet and often times eats meals on the go. Does not have current exercise regimen but would like to start CrossFit in November. Discussed the importance of a high-protein diet and limiting processed foods, sugar alcohol. Discussed the importance of increasing physical activity with a daily step count of 8 to 10K steps daily as well as beginning strength training. Discussed seca scan with patient. Patient has had recent labs obtained and will bring to next follow-up. Plan to begin tirzepatide 2.5 mg weekly injections. Discussed side effects and role of medication. Plan to send for prior authorization. Plan to follow-up in 4 weeks. 12/07/2024: Wt: 188.2 lbs, BMI: 33.33 patient currently on Zepbound 5 mg weekly injections. Patient reports severe appetite suppression. Denies any side effects. Patient reports drinking a protein shake in the morning with 42 g of protein and often times does not eat anything else for the rest of the day. Discussed risk versus benefit with this medication. Explained in great detail the importance of eating regardless of appetite in order to prevent further destruction of metabolism. Discussed risk of body in starvation mode and holding onto fat as opposed to losing it. Advised patient to eat at least 1100 lupe daily up to 1400 lupe. Advised patient to eat at least 100 g of protein daily. Advised patient to increase physical activity in order to promote muscle mass growth as well. Discussed with patient that we would not be able to increase medication dose at this time due to muscle loss. Discussed with patient if she does not increase muscle, we will need to discontinue medication. Discussed Seca scale results. Overall has lost 19 pounds, 14 pounds of fat mass and 4 pounds of muscle mass. Patient agreeable with plan. Plan to closely monitor. 02/01/2025: Wt: 174.4 lbs, BMI: 30.89 patient currently on Zepbound 5 mg weekly injections. Denies any side effects. Endorses adequate appetite suppression. Patient overall is lost 14 pounds since last visit, 11 pounds of fat mass and 4 pounds of muscle. Discussed in great detail that if patient continues to lose muscle we will have to discontinue medication. Recommend increasing protein with a goal of at least 80-100 g of protein daily. Patient recently started strength training and patient was congratulated on effort. Discussed staying consistent with at least 2 days of strength training weekly to promote muscle growth. Plan to stay on Zepbound 5 mg weekly injections and follow-up in 4 weeks. 03/15/2025: Wt: 161.9 lbs, BMI: 28.68 Currently on Zepbound 5 mg weekly injections. Denies any side effects. Dors is adequate appetite suppression. Overall lost 13 pounds. Has lost 10 pounds of fat mass and has lost 2 pounds of muscle loss. Discussed concern for muscle loss. Patient has begun hitting a goal of 100 g of protein daily. Has also begun strength training. Discussed further increasing protein as well as possibly increasing portion size. Recommend increasing weight with strength training. Plan to continue Zepbound 5 mg and follow-up in 4 weeks. 05/04/2025: Wt: 156.6 lbs, BMI: 27.74 patient overall has lost 5 pounds, has lost 10 pounds of fat mass and has gained 1-1/2 pound of muscle. Patient congratulated on success. Patient's goal is 140 pounds. Discussed how we will begin tapering medication once patient hits goal weight or a BMI of 23, whichever comes sooner. Plan to continue high-protein diet. Plan to continue strength training as well as swimming laps in the pool as this is demonstrated to promote muscle mass growth. Will increase Zepbound 7.5 mg and send 90-day supply as patient will be traveling to [place] to see her son. Plan follow-up in 4 weeks. 06/08/2025: Wt: 145.5 lbs, BMI: 25.77 currently on Zepbound 7.5 mg weekly injections. Has Plynkedcarmi will need to switch to Wegovy. Has not had any side effects thus far. Will switch to Wegovy 1 mg weekly injections. Plan to send to pharmacy. Plan to continue lifestyle modifications as addressed in HPI. Patient almost at goal weight, briefly discussed tapering process. #Depression: Well-managed. Plan to continue Zoloft 100 mg p.o. once daily. #Live donor #kidney transplant: Patient reports in July she recently donated kidney for transplant. Will try to obtain these records. Total time spent is was 30 minutes, with more face to face time This medication is prescribed by or in consultation with a board certified obesity and weight management physician Dr. hCyna Hicks The patient will continue exercise regimen with an emphasis on improving/increasing steps to at least 6,000-10,000 steps per day. Increasing cardio and strength training exercises as tolerated to improve weight loss and work on building muscle mass. Patient is committed to smarter eating with calorie counting and mindful eating. Limiting processed foods and carbohydrates and increasing leafy greens and lean proteins as well as fruits into their diet. Patient was counseled on the importance of eating local, organic food when possible. Patient has been counseled regarding effects of GLP/GIP-1 agonists and other FDA approved weight loss medications with regards to a multifactorial approach of weight loss as mentioned above and that the medication alone will not be sufficient to meet patients goals. We discussed holistic medication approach with emphasis on lifestyle modification. Discussed obesity as it increases risk of diabetes, cardiovascular disease, and/or organ damage. We spent a lot of time discussing the relationship between food, exercise, sleep, mental health, and obesity. We discussed the importance of having SECAs done every visit and having accountability done during these visits. That the scale is done to monitor not only weight loss but the body composition during medication management and healthy lifestyle changes. We discussed that if the patient is unable at times to financially afford this scale that we would rather waive the fee and have the scale done than have the patient not have the scale obtained. Will follow up with the patient in 4 weeks time to monitor weight loss. total time was 30 min, greater than 50 % of time was spent on care coordination Case discussed with collaborating physician Paulino Hicks who reviewed the assessment and plan. Chart, medications, labs, vital signs reviewed. Dictation was accomplished with the use of [employer] voice recognition software, prone to medical misidentifications and grammatical errors. This is unintentional and the practitioner does try to identify and correct these, but some could still be present. Please do not hesitate to contact practitioner for clarification. All questions answered to patients satisfaction. Patient verbalized understanding of diagnosis and treatments explained. To call sooner prior to next visit it any questions/concerns arise. 10/13/2024 Kidney donor (ICD-10 - Z52.4) Patient was reassured and welcomed to the practice. 10/13/2024: Wt: 207.6 lbs, BMI: 36.77 patient struggles with weight loss regardless of lifestyle modifications. Currently does not have a well-balanced diet and often times eats meals on the go. Does not have current exercise regimen but would like to start CrossFit in November. Discussed the importance of a high-protein diet and limiting processed foods, sugar alcohol. Discussed the importance of increasing physical activity with a daily step count of 8 to 10K steps daily as well as beginning strength training. Discussed seca scan with patient. Patient has had recent labs obtained and will bring to next follow-up. Plan to begin tirzepatide 2.5 mg weekly injections. Discussed side effects and role of medication. Plan to send for prior authorization. Plan to follow-up in 4 weeks. #Depression: Well-managed. Plan to continue Zoloft 100 mg p.o. once daily. #Live donor #kidney transplant: Patient reports in July she recently donated kidney for transplant. Will try to obtain these records. We discussed that we stress a hollistic medical approach with emphasis on lifestyle modification. Patient was informed that a healthy lifestyle with exercise and good eating habits can help reduce his risk of medical complications. Patient is explained that obesity increases his risk of diabetes, cardiovascular disease, or organ damage. We spent a lot of time discussing the relationship between food, exercise, sleep, mental health and obesity. Patient was counseled on the importance EATING local, organic food when possible. Patient was educated on clean 15 and dirty dozen. I provided information about reading books called The Food Rules by Hema Brito and Eat Fat Get Lean by Dr Jun Apple. Self education is important in the journey for weight management. Patient was offered diagnostic testing/ SECA scale. We want to measure visceral adiposity, advanced body composition, adverse lipids, fatty acid balance, risk for heart disease and atherosclerosis, markers of inflammation and genetic susceptibility. Patient was counseled on weight management and was advised to lose weight using A. Meal Replacement Products Patient was educated on the replacement products called optifast. This is a good way of taking fixed amount of calories. It has been shown in studies to be ineffective weight management tool. This however has to be coupled with lifestyle intervention as well as laboratory data and EKG monitoring. It is impossible to know how a person will tolerate complete meal replacement. The side effects of meal replacement and weight loss could include syncopal attacks, dizziness, gallstones, potential cholecystectomy, possible heart attack and even . The benefits of meal replacement would be potential weight loss but no guarantees can be made. Meal replacement products are not covered by insurance. Once the patient has bought these products we cannot return them B. Lifestyle management which includes several strategies as below 1. Eat a low carbohydrate good fat good protein diet. Eliminate refined carbohydrates from the diet. Limit sugared beverages. Eat local organic when possible. Cook your own meals. Read food labels. Focus on healthy snacks. Portion control and food with low glycemic index 2. Exercise regularly. Try to get at least 6000 steps a day. Use a predominant to track activity level. Consider using apps like 7 minute excercise, MaxxAthletepal, lose it, stick as needed for self-monitoring and weight management. Consider group exercises. Consider hiring a personalized living assistant. Regular exercise is mendez to sustainable health and prevents as a buffer against weight regain 3. Sleep is most important for healing. Try to sleep at least 6-8 hours a night. A good quality sleep needs a sleep ritual with ideal room temperature of around 68. It might help to take a shower and have no electronics in the room and sleep in a very dark room without artificial light. Start sleep routine and get up early in the morning and go to bed on time. 4. Make a social connection. Surround yourself with positive people with positive energy. Connect with friends and family. 5. Get into the habit of meditating and mindfulness while doing everything. 6. Go outside and connect with nature. C. Prescription medications Patient was educated on the use of prescription medications for medical weight loss. This is a growing list and includes phentermine, Topamax, Qsymia, contrave, belviq and saxenda, wegovy etc. All prescription medications could have side effects including but not limited to kidney stones, seizure disorder, cardiac arrhythmias, heart attack, pancreatitis, GI effects, Etc. Patient was encouraged to read the prescription insert and discuss with their pharmacist to make an informed decision about taking medication and know that these medications are being prescribed with good intentions and we do not know how a patient would react to her medication. Some medications are FDA approved for weight loss and there is also off label use depending on patient's inability to afford medications in an attempt to lose weight. D. Behavioral counseling was done to establish a relationship between food and an mood. Patient was provided information about local counseling and psychiatry and Dr Koo at [facility]. We would like to cover regular topics and build on low glycemic eating exercise mindful eating, using yoga and meditation along with deep breathing and connecting with friends and family. E. MASS PAT reviewed, Patient's current medications were reviewed and opinion was given on medication that can cause weight gain and can be substituted F. Patient was assessed for risk with obesity including and not limiting to atherosclerosis, heart disease, stroke, kidney disease, restrictive lung disease, irritable bowel syndrome and overall mortality. Risk of developing prediabetes diabetes and metabolic syndrome was discussed G. Therapeutic plan: We have decided to make therapeutic plan which would include choosing wisely on calories restricting portion getting active, tracking weight, getting good quality sleep and working on time management H. Patient will follow up in 4 weeks for weight management Total time spent today was 60 minutes of which greater than 50% was spent on coordinating and counseling Case discussed with collaborating physician Fany Hicks who reviewed the assessment and plan. Chart, medications, labs, vital signs reviewed. Dictation was accomplished with the use of [employer] voice recognition software, prone to medical misidentifications and grammatical errors. This is unintentional and the practitioner does try to identify and correct these, but some could still be present. Please do not hesitate to contact practitioner for clarification. All questions answered to patients satisfaction. Patient verbalized understanding of diagnosis and treatments explained. To call sooner prior to next visit it any questions/concerns arise. Plan Of Treatment Next Appt Details Provider Name:MICHAEL POTTER, 07/20/2025 08:00:00 AM, [address], [place], [address], Insurance Providers Payer Name Payer Address Payer Phone Subscriber Number Group Number Insured Name Patient Relationship to Insured Coverage Start Date Coverage End Date [facility] [address] [place] [address] [phone] [id number] Christina Garza Self - patient is the insured 4 Medications Administered Medication Instructions Date of Administration Dosage Notes MICC B12 INJECTION 02/01/2025 1 mL Tirzepatide 10/13/2024 2.5 mg Medical (General) History Medical History History ICD Code weight gain depression Surgical History Surgery Date(Month/Year) hysterectomy 11/30/16 kidney donation 08/02/2024 bladder sling 04/27/2017
--- OUTSIDE RECORDS SUMMARY | 2025-07-14 23:00 | XMS_ITS | Clinical Summary ---
Author Organization [facility] [address] [facility] Address [address] [place] [address] Phone Care Team Providers Care Blending Machine Feeder Name Role Phone Payal Nugent MD Primary Care Prov ider Allergies No known active allergies Medications sertraline (ZOLOFT) 100 mg tablet Take 2 tablets (200 mg total) by mouth 1 (one) time each day. 180 each 1 10/13/2024 Active topiramate (TOPAMAX) 50 mg tablet Take 1 tablet (50 mg total) by mouth 2 (two) times a day. 180 each 1 10/13/2024 Active buPROPion SR (WELLBUTRIN SR) 150 mg 12 hr tablet Take 1 tablet (150 mg total) by mouth 2 (two) times a day. Do not crush, chew, or split. 60 each 2 11/14/2024 Active Zepbound 5 mg/0.5 mL injection 0.5 mL (5 mg total). Active Active Problems Problem Noted Date Diagnosed Date Hyperlipidemia 05/14/2025 Class 2 obesity without seri ous comorbidity with body mass index (BMI) of 35.0 to 35.9 in adult 10/13/2024 S/p nephrectomy 10/13/2024 Obesity (BMI 30.0-34.9) 2023 Restless leg 03/11/2022 COVID-19 11/12/2020 Depression 05/03/2019 Subclinical hypothyroidism 03/27/2019 Chronic daily headache 04/14/2018 Midline cystocele 02/25/2018 Encounters Date Type Department Care Team Description 05/18/2025 Telephone Adult [facility] [place] [address] [place] [address] Terra Chin PA 05/14/2025 4:00 PM EDT Office Visit Adult Medicine - [address] [phone] Terra Chin PA Hyperlipidemia, unspecified hyperlipidemia type (Primary Dx); Leukocytosis, unspecified type; Decreased GFR; Rectal prolapse; S/p nephrectomy; Difficulty paying attention; Chronic daily headache; Moderate episode of recurrent major depressive disorder ([facility] V24, [facility] V28); Overweight (BMI 25.0-29.9) 05/09/2025 7:38 AM EDT - 05/09/2025 11:59 PM EDT Hospital Encounter Radiology Department - [address] [phone] Encounter for screening mammogram for breast cancer Discharge Disposition: Home or Self Care from Last 3 Months Immunizations Name Administration Dates Next Due Hepatitis B (Oyofrtr-C-Kpgch , Recombivax HB-Adult) 19yo and older 03/11/2023,10/12/2022,09/11/2022 Influenza trivalent, 0.5mL, preservative free (Fluarix; FluLaval; Fluzone) ages 6mo and older (Afluria) 3 years and older 12/14/2014,08/27/2011 MMR, measles mumps and rubel la Live (Priorix; M-M-R II) 12mo and older 10/12/2022,09/11/2022 Tdap Tetanus diptheria acell ular pertussis (Boostrix; Adacel) 7yo and older 02/09/2025,12/14/2014 Surgical History Surgery Date Site/Laterality Comments SALPINGOOPHORECTOMY 06/08/2003 PROCEDURE: RI LAPAROSCOPY W/RMVL ADNEXAL STRUCTURES; COMMENT: LSO for large ovarian cyst ROBOTIC ASSISTED HYSTERECTOMY 01/27/2017 PROCEDURE: HISTORICAL ROBOTIC HYSTERECTOMY WITH OR WITHOUT BSO; COMMENT: da Brendan total hysterectomy with right salpingectomy performed by Dr. Stahl NEPHRECTOMY Right Medical History Medical History Date Comments Other specified personal his tory presenting hazards to health(V15.89) DX:Other specifie d personal history presenting hazards to health(V15.89) Subclinical hypothyroidism 03/27/2019 DX:Haas bclinical hypothyroidism Family History Medical History Relation Name Comments Hypertension Father Diabetes Mother Breast cancer Other cousin Cancer of Small Bowel Neg Hx Colon cancer Neg Hx Kidney cancer Neg Hx Ovarian cancer Neg Hx Pancreatic cancer Neg Hx Uterine cancer Neg Hx Relation Name Status Comments Brother 1 Alive Brother 2 Alive Father (Age 65) Suicide Maternal Grandfather Maternal Grandmother Mother Alive Other cousin Alive Paternal Grandfather Paternal Grandmother Alive Sister Alive Son Kulwant Alive Social History Tobacco Use Types Packs/Day Years Used Date Smoking Tobacco: Never Smokeless Tobacco: Never Tobacco Cessation:Counseling Given: No Alcohol Use Standard Drinks/Week Comments No 0 (1 standard drink = 0.6 oz pur e alcohol) Housing Instability Answer Date Recorde d Are you worried that in the next 2 months you may not have stable housing? No 02/09/2025 Food Access & Nutrition Answer Date Rec orded Do you have access to a vari ety of food including fruits and vegetables? Yes 02/09/2025 Access to Healthcare Answer Date Record ed Within the last 3 months, duran hernandez many times did you visit the emergency department for your medical care? 0 02/09/2025 Health Literacy Answer Date Recorded How often do you need to hav e someone help you when you read instructions, pamphlets, or other written material from your doctor or pharmacy? Never 02/09/2025 Caregiver: How often do you need to have someone help you when you read instructions, pamphlets, or other written material from your doctor or pharmacy? Not on file 02/09/2025 Financial Risk Answer Date Recorded How hard is it for you to pa y for the very basics like food, housing, medical care, and air conditioning / heating? Patient declined 02/09/2025 Transportation Answer Date Recorded Has the lack of transportati on kept you from meetings, work, or from getting things needed for daily living? No Has the lack of transportati on kept you from medical appointments or from getting medications? No 02/09/2025 Social Isolation Answer Date Recorded How often do you feel lonely or isolated from th ose around you? Never 02/09/2025 Food Risk Answer Date Recorded Within the past 12 months we worried whether our food would run out before we got money to buy more. Never true 02/09/2025 Within the past 12 months th e food we bought just didn't last and we didn't have money to get more. Never true 02/09/2025 Dependent Care Answer Date Recorded Do you need help finding or paying for care for your loved ones. For example, child development instructor or elderly care for an older adult? No 02/09/2025 Education Answer Date Recorded Do you think completing more education or training, like finishing a GED, going to college, or learning a trade, would be helpful for you? No 02/09/2025 Employment and Income Answer Date Recor ded During the last four weeks, have you been actively looking for work? No 02/09/2025 Living Situation Answer Date Recorded What is your living situation? 0 02/09/2025 Comments No Sex and Gender Information Value Date Recorded Sex Assigned at Not on file Legal Sex Female 8:00 PM EST Gender Identity Not on file Sexual Orientation Not on file Obstetrics History Para Term AB IAB SAB Ectopic Multiple Livin g Live Births 1 1 1 1 Date Outcome GA Total Labor Labor/2nd/3rd Weight Sex Type Anes PTL Michelle A1 A5 Name Clin Term Last Filed Vital Signs Vital Sign Reading Time Taken Comments Blood Pressure 96/62 05/14/2025 3:54 PM EDT Pulse 64 05/14/2025 3:54 PM EDT Temperature 36.6 C (97.9 F) 02/09/2025 2:37 PM EDT Respiratory Rate - - Oxygen Saturation - - Inhaled Oxygen Concentration - - Weight 69.8 kg (153 lb 12.8 oz) 05/14/2025 3:54 PM EDT Height 167.6 cm (5' 6 ) 05/14/2025 3:54 PM EDT Body Mass Index 24.82 05/14/2025 3:54 PM EDT Plan of Treatment Upcoming Encounters Date Type Department Care Team (Late st Contact Info) Description 11/15/2025 8:30 AM EST Office Visit Adult Medicine - [place] [address] [place] [phone] Terra Chin PA [address] [place] [address] Health Maintenance Due Date Last Done Comments Pneumococcal Vaccine: 50+ Years (1 of 1 - PCV) 2019 Zoster Vaccines (1 of 2) 2019 HIV Screening 10/17/2022 Hepatitis C Screening 10/17/2022 Depression Screening 11/08/2024 11/07/2024 COVID-19 Vaccine (4 - season) 2025 10/10/2022, 07/25/2021, 06/27/2021 Influenza Vaccine (#1) 2025 12/14/2014, 2010 Social Influencers of Health Screening 02/09/2026 02/09/2025 Breast Cancer Screening 05/09/2027 05/09/20, 05/16/2024, 05/16/2024, Additional history exists Cholesterol Screening (Lipid Panel) 05/09/2030 05/09/2025, 2023 Colorectal Cancer Screening: Colonoscopy 03/10/2031 03/10/2021, 03/10/2021 DTaP,Tdap,and Td Vaccines (6 - Td or Tdap) 02/09/2035 02/09/2025, 12/14/2014, 06/28/2013, Additional history exists MMR Vaccines Aged Out 10/12/2022, 09/11/2022 No lo nger eligible based on patient's age to complete this topic Hepatitis B Vaccines Completed 03/11/2023, 10/12/2022, 09/11/2022 HIB Vaccines Aged Out No longer eligi ble based on patient's age to complete this topic HPV Vaccines Aged Out No longer eligi ble based on patient's age to complete this topic Hepatitis A Vaccines Aged Out No long er eligible based on patient's age to complete this topic IPV Vaccines Aged Out No longer eligi ble based on patient's age to complete this topic Meningococcal ACWY Vaccine Aged Out N o longer eligible based on patient's age to complete this topic Meningococcal B Vaccine Aged Out No l onger eligible based on patient's age to complete this topic RSV Immunization Patients Under 20 months Aged Out No longer eligible based on patient's age to complete this topic Varicella Vaccines Aged Out No longer eligible based on patient's age to complete this topic Procedures Procedure Name Priority Date/Time Associated Diagnosis Comments CBC WITH AUTO DIFFERENTIAL Routine 05/09/2025 8:46 AM EDT Moderate episode of recurrent major depressive disorder (CMS/HCC V24, CMS/HCC V28) LIPID PANEL WITH REFLEX TO DIRECT LDL Routine 05/09/2025 8:46 AM EDT Screening for ischemic heart disease COMPREHENSIVE METABOLIC PANEL Routine 05/09/2025 8:46 AM EDT Moderate episode of recurrent major depressive disorder (CMS/HCC V24, CMS/HCC V28) CBC AND DIFFERENTIAL Routine 05/09/2025 8:46 AM EDT Moderate episode of recurrent major depressive disorder (CMS/HCC V24, CMS/HCC V28) MG MAMMO DIGITAL SCREENING W TWYLA BILAT Routine 05/09/2025 7:54 AM EDT Encounter for screening mammogram for breast cancer HM COLONOSCOPY Routine 03/10/2021 from Last 3 Months or Most Recently Relevant to Health Maintenance Results * (ABNORMAL) Lipid panel with reflex to direct LDL (05/09/2025 8:46 AM EDT) Cholesterol 209(H) 0 - 200 mg/dL LAB CHEMISTRY METHOD 05/09/2025 12:57 PM [facility] Triglycerides 74 0 - 150 mg/dL LAB CHEMISTRY METHOD 05/09/2025 12:57 PM [facility] HDL 43 >=40 mg/dL LAB CHEMISTRY METHOD 05/09/2025 12:57 PM T [facility] LDL Calculated 151(H) 0 - 100 mg/dL LAB CHEMISTRY METHOD 05/09/2025 12:57 PM [facility] VLDL Cholesterol [place] 14.8 mg/dL LAB CHEMISTRY METHOD 05/09/2025 12:57 PM [facility] Non HDL Chol. (LDL+VLDL) 166(H) <145 mg/dL LAB CHEMISTRY METHOD 05/09/2025 12:57 PM EDT [facility] Chol/HDL Ratio 4.9(H) 0.0 - 4.4 LAB CHEMISTRY METHOD 05/09/2025 12:57 PM EDT [facility] Blood Venous blood specimen / Unknown Venipuncture / Unknown 05/09/2025 8:46 AM EDT 05/09/2025 8:46 AM EDT Terra FONG LAB BLOOD ORDERABLES Final Result [facility] [address] [place] [address], * (ABNORMAL) CBC auto differential (05/09/2025 8:46 AM EDT) WBC 3.3(L) 4.8 - 10.8 K/mcL LAB HEMETOLOGY METHOD 05/09/2025 12:23 PM [facility] RBC 4.60 3.80 - 4.80 M/mcL LAB HEMETOLOGY METHOD 05/09/2025 12:23 PM [facility] Hemoglobin 13.1 11.5 - 16.0 g/dL LAB HEMETOLOGY METHOD 05/09/2025 12:23 PM [facility] Hematocrit 41.4 35.0 - 47.0 % LAB HEMETOLOGY METHOD 05/09/2025 12:23 PM [facility] MCV 90.4 79.0 - 98.0 FL LAB HEMETOLOGY METHOD 05/09/2025 12:23 PM [facility] MCH 28.6 27.0 - 32.0 pcg LAB HEMETOLOGY METHOD 05/09/2025 12:23 PM [facility] MCHC 31.6(L) 32.0 - 37.0 g/dL LAB HEMETOLOGY METHOD 05/09/2025 12:23 PM [facility] RDW 15.0 11.0 - 15.0 % LAB HEMETOLOGY METHOD 05/09/2025 12:23 PM [facility] Platelets 168 130 - 400 K/mcL LAB HEMETOLOGY METHOD 05/09/2025 12:23 PM [facility] MPV 13.0(H) 7.0 - 11.0 FL LAB HEMETOLOGY METHOD 05/09/2025 12:23 PM [facility] NRBC 0.0 <1.0 % LAB HEMETOLOGY METHOD 05/09/2025 12:23 PM [facility] NRBC Absolute 0.00 <0.10 K/mcL LAB HEMETOLOGY METHOD 05/09/2025 12:23 PM [facility] Neutrophils Relative 61.8 % LAB HEMETOLOGY METHOD 05/09/2025 12:23 PM [facility] Lymphocytes Relative 26.4 % LAB HEMETOLOGY METHOD 05/09/2025 12:23 PM [facility] Monocytes Relative 8.8 % LAB HEMETOLOGY METHOD 05/09/2025 12:23 PM [facility] Eosinophils Relative 2.1 % LAB HEMETOLOGY METHOD 05/09/2025 12:23 PM [facility] Basophils Relative 0.6 % LAB HEMETOLOGY METHOD 05/09/2025 12:23 PM [facility] Immature Granulocytes Relative 0.3 % LAB HEMETOLOGY METHOD 05/09/2025 12:23 PM [facility] Neutrophils Absolute 2.03 1.50 - 7.00 K/mcL LAB HEMETOLOGY METHOD 05/09/2025 12:23 PM [facility] Lymphocytes Absolute 0.87(L) 1.00 - 5.00 K/mcL LAB HEMETOLOGY METHOD 05/09/2025 12:23 PM [facility] Monocytes Absolute 0.29 0.20 - 1.00 K/mcL LAB HEMETOLOGY METHOD 05/09/2025 12:23 PM EDT [facility] Eosinophils Absolute 0.07 0.00 - 0.50 K/[facility] LAB HEMETOLOGY METHOD 05/09/2025 12:23 PM EDT [facility] Basophils Absolute 0.02 0.00 - 0.20 K/[facility] LAB HEMETOLOGY METHOD 05/09/2025 12:23 PM EDT [facility] Immature Granulocytes Absolute 0.01 0.00 - 0.03 K/[facility] 05/09/2025 12:23 PM [facility] Blood Venous blood specimen / Unknown Venipuncture / Unknown 05/09/2025 8:46 AM EDT 05/09/2025 8:46 AM EDT us Terra FONG LAB BLOOD ORDERABLES Final Result [facility] [address] [place] [address], * (ABNORMAL) Comprehensive metabolic panel (05/09/2025 8:46 AM EDT) Sodium 140 133 - 145 mmol/L LAB CHEMISTRY METHOD 05/09/2025 12:57 PM [facility] Potassium 3.9 3.5 - 5.5 mmol/L LAB CHEMISTRY METHOD 05/09/2025 12:57 PM [facility] Chloride 112(H) 96 - 110 mmol/L LAB CHEMISTRY METHOD 05/09/2025 12:57 PM [facility] CO2 23 21 - 32 mmol/L LAB CHEMISTRY METHOD 05/09/2025 12:57 PM [facility] Anion Gap 5 3 - 11 LAB CHEMISTRY METHOD 05/09/2025 12:57 PM [facility] Glucose 81 70 - 100 mg/dL LAB CHEMISTRY METHOD 05/09/2025 12:57 PM [facility] BUN 19 5 - 25 mg/dL LAB CHEMISTRY METHOD 05/09/2025 12:57 PM [facility] Creatinine 1.17(H) 0.50 - 1.10 mg/dL LAB CHEMISTRY METHOD 05/09/2025 12:57 PM [facility] eGFR 55(L) >=60 mL/min/1. 73m2 LAB CHEMISTRY METHOD 05/09/2025 12:57 PM [facility] Comment:Calculation based on the Chronic Kidney Disease Epidemiology Collaboration (CKD-EPI) equation refit without adjustment for race. BUN/Creatinine Ratio 16.2 LAB CHEMISTRY METHOD 05/09/2025 12:57 PM [facility] Calcium 9.2 8.5 - 10.5 mg/dL LAB CHEMISTRY METHOD 05/09/2025 12:57 PM [facility] AST (SGOT) 13 10 - 42 unit/L LAB CHEMISTRY METHOD 05/09/2025 12:57 PM [facility] ALT (SGPT) 22 10 - 60 unit/L LAB CHEMISTRY METHOD 05/09/2025 12:57 PM [facility] Alkaline Phosphatase 80 42 - 121 unit/L LAB CHEMISTRY METHOD 05/09/2025 12:57 PM [facility] Total Protein 6.8 6.0 - 8.0 g/dL LAB CHEMISTRY METHOD 05/09/2025 12:57 PM [facility] Albumin 4.1 3.2 - 5.0 g/dL LAB CHEMISTRY METHOD 05/09/2025 12:57 PM [facility] Total Bilirubin 0.3 0.0 - 1.4 mg/dL LAB CHEMISTRY METHOD 05/09/2025 12:57 PM [facility] Blood Venous blood specimen / Unknown Venipuncture / Unknown 05/09/2025 8:46 AM EDT 05/09/2025 8:46 AM EDT Terra FONG LAB BLOOD ORDERABLES Final Result [facility] [address] [place] [address], [place] [phone] * MG Mammo Digital Screening w Twyla bilat (05/09/2025 7:54 AM EDT) Anatomical Region Laterality Modality Breast Bilateral Mammography 05/09/2025 5:42 PM EDT Impressions 05/09/2025 5:45 PM EDT Benign. BI-RADS CATEGORY: 1 - NEGATIVE RECOMMENDATION: Screening bilateral mammogram is recommended in 1 year. Mammo Location: [facility], [address] [place] [address], [id number], . -------- FINAL REPORT -------- Dictated By: Briana Marinelli Dictated Date: 05/09/2025 17:42 ET Assigned Physician: Briana Marinelli Reviewed and Electronically Signed By: Briana Marinelli Signed Date: 05/09/2025 17:45 ET Workstation ID: [id number] Transcribed By: Self Edit Transcribed Date: 05/09/2025 17:42 ET Narrative 05/09/2025 5:45 PM EDT CLINICAL: 54 years old, Female, routine annual exam. COMPARISON: Mammograms dating back to 03/15/2021 with most recent of 04/28/2024. TECHNIQUE: Bilateral MLO and CC views were obtained digitally with 3-D mammogram (digital breast tomosynthesis). Computer-aided detection was utilized in evaluation of this exam (CAD). FINDINGS: There is no evidence of suspicious mass or architectural distortion. No worrisome calcifications are evident. There has been no significant change from prior exam(s). BREAST DENSITY: B - There are scattered areas of fibroglandular density. Procedure Note Briana Marinelli MD - 05/09/2025 CLINICAL: 54 years old, Female, routine annual exam. COMPARISON: Mammograms dating back to 03/15/2021 with most recent of04/28/2024. TECHNIQUE: Bilateral MLO and CC views were obtained digitally with 3-Dmammogram (digital breast tomosynthesis). Computer-aided detection wasutilized in evaluation of this exam (CAD). FINDINGS: There is no evidence of suspicious mass or architectural distortion. Noworrisome calcifications are evident. There has been no significantchange from prior exam(s). BREAST DENSITY: B - There are scattered areas of fibroglandular density. IMPRESSION: Benign. BI-RADS CATEGORY: 1 - NEGATIVE RECOMMENDATION: Screening bilateral mammogram is recommended in 1 year. Mammo Location: [facility], [address] [place] [address], [id number], . -------- FINAL REPORT -------- Dictated By: Briana Marinelli Dictated Date: 05/09/2025 17:42 ET Assigned Physician: Briana Marinelli Reviewed and Electronically Signed By: Briana Marinelli Signed Date: 05/09/2025 17:45 ET Workstation ID: [id number] Transcribed By: Self Edit Transcribed Date: 05/09/2025 17:42 ET Payal Nugent MD IMG BI PROCEDURES Final Result * Colonoscopy (03/10/2021) Colonoscopy normal, abstracted Anatomical Region Laterality Modality Other Historical Provider HEALTH MAINTENANCE Final Result from Last 3 Months or Most Recently Relevant to Health Maintenance Insurance [facility] [address] [place] [address] Care Teams Blending Machine Feeder Relationship Specialty Start Date End Date Payal Nugent MD [address] [place] [id number] PCP - General 07/14/23
--- NOTE | 2025-07-14 23:18 | ED.ABDPAIN ---
HPI - Abdominal Pain General Chief Complaint: Abdominal Pain Stated Complaint: lwr left abd pain Time Seen by Provider: 07/14/25 23:18 Source: patient Mode of arrival: ambulatory Limitations: no limitations History of Present Illness ED Provider: David FONG HPI narrative: The patient is a 55-year-old female presenting to the ED for evaluation of left lower quadrant abdominal pain which [place]. Patient reports she felt she needed to move her bowels, however was unable to successfully urinate or defecate. Patient reports she returned home and experienced gradually worsening severity of pain which then became sharp in nature prompting ED evaluation. 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 The patient denies other surgical abdominal history. The patient denies associated fever/chills, nausea, vomiting, chest pain, shortness of breath, dysuria, hematuria, hematochezia, melena, or recent sick contacts or trauma. The patient reports most recent episode of suspected rectal prolapse was yesterday, reports no difficulty with manually reducing the prolapse. Patient denies sensation of prolapse currently, also denies any left lower quadrant pain associated with previous prolapses. Related Data Allergies Allergy/AdvReac Type Severity Reaction Status Date / Time No Known Allergies Allergy Verified 07/14/25 21:31 Review of Systems Review of Systems Yes all other systems are reviewed and are negative PMFSH Social History Social History Smoked in Last 30 Days: No Use of substances other than those prescribed or required for medical reasons: No Advance Directives: No Advance Directives Information Provided: No Patient : No Physical Exam ED Vital Signs: Vital Signs - 24 hr 07/14/25 21:27 07/15/25 00:00 07/15/25 02:00 Temperature 98.6 F 98.1 F 98.1 F Pulse Rate 74 81 69 Respiratory Rate 20 16 16 Blood Pressure 124/69 113/68 103/59 L Pulse Oximetry 98 99 97 Oxygen Delivery Method Room Air Room Air Room Air 07/15/25 04:53 Temperature Pulse Rate 69 Respiratory Rate 17 Blood Pressure 108/63 Pulse Oximetry 100 Oxygen Delivery Method Room Air BMI result Body Mass Index 24.3 CONSTITUTIONAL: The patient appears non-toxic, well nourished and in no acute distress. Vital signs as documented. HEAD: Atraumatic, normocephalic. EYES: EOMs grossly intact, pupils equal, conjunctiva clear, no exudate. ENT: Nares patent, no discharge. Airway patent, no audible stridor, visible mucosa is pink and moist without noted lesions. NECK: Trachea is midline, no obvious masses or gross abnormalities. CHEST: Symmetric movement, normal appearance. LUNGS: LS present and CTAB, no w/r/r. Non-labored work of breathing. CARDIAC: Regular Rhythm, S1/S2 appreciated, no murmurs, rubs or gallops. ABDOMEN: Abdomen soft x4 quadrants, positive tenderness to palpation of the left lower quadrant, negative rebound, no palpable masses or organomegaly. : Deferred. EXTREMITIES: Normal tone, moves all extremities spontaneously without reported pain. No obvious acute injury or deformity noted. NEURO: Alert and oriented x3, CN II-XII appear grossly intact. Cerebellar Functioning grossly intact. No obvious sensory or motor deficits. Speech clear and appropriate. PSYCH: normal affect, appropriate eye contact, fluid speech, with appropriate response to questioning. No reported suicidality or homicidality. SKIN: Warm, dry, color appropriate, normal turgor. No rashes noted. Medical Decision Making Medical Decision Making MDM Narrative: 11:57 PM 07/14/2025 (Deonte FONG): Patient is a 55-year-old female presenting to the ED for evaluation of left lower quadrant abdominal pain which began gradually at 16:00 today while at rest, but increased in severity and sharpness prompting ED evaluation. The patient in the ED is tender in the left lower quadrant without associated rebound. Patient's laboratory evaluation is reassuring, no leukocytosis, anemia, or significant electrolyte abnormality. The patient's creatinine is mildly elevated at 1.56. The patient's LFTs are unremarkable, lipase is normal. The patient's bladder scan shows no retained urine. We will obtain CT abdomen and pelvis to evaluate for diverticulitis versus other acute intra-abdominal pathology. Patient will receive IV fluids, Zofran, and morphine for pain control. 2:25 AM 07/15/2025 (Deonte FONG): The patient's CT has resulted and shows left hydroureteronephrosis with a 2 mm calculus in the left ureterovesicular junction. Patient will be treated with additional IV fluids, Toradol, tamsulosin, and we will reassess for improvement. The patient's creatinine was elevated at 1.56, likely due to the surgically absent right kidney in the setting of left obstructing stone. Due to the patient's surgically absent right kidney, we will hold the patient in the ED for monitoring and screening of urine to ensure passage of stone. Patient reports her pain resolved following administration of morphine. Unfortunately pain did resolve prior to CT which demonstrated stone, thus resolution of pain can not be confidently correlated with passage of stone. Patient's creatinine is 1.56, patient has hydroureteronephrosis secondary to the kidney stone. Patient only has 1 kidney. Patient receiving IV fluids. Admission has been discussed with Dr. Reyes from the Medicine team Differential Diagnosis Differential Diagnoses: The differential diagnosis associated with the presentation includes (Renal colic, ureterolithiasis, hydronephrosis) Admission/Observation Consideration of admission/observation: Escalation of care including admission/observation considered Consult Healthcare Provider Management of the patient was discussed with: Hospitalist Lab Data MDM Lab Attestation statement: I reviewed the patient's lab results. 07/14/25 21:39 07/14/25 21:39 Labs: Lab Results 07/14/25 07/15/25 Range/Units 21:39 02:17 WBC 6.6 (4.8-10.8) X10*3/uL RBC 4.42 (4.20-5.50) X10*6/uL Hgb 13.1 (12.0-16.0) g/dl Hct 38.7 (37.0-47.0) % MCV 87.6 (80.0-98.0) fL MCH 29.6 (27.0-33.0) pg MCHC 33.9 (31.0-35.0) g/dl RDW 14.2 (11.0-16.0) % Plt Count 165 (160-400) X10*3/uL MPV 12.1 (9.4-12.3) fL Immature Gran % (Auto) 0.2 (0.0-0.4) % Neut % (Auto) 79.1 H (45-73) % Lymph % (Auto) 12.1 L (20-40) % [place] % (Auto) 7.4 (2-11) % Eos % (Auto) 0.9 (0-4) % Baso % (Auto) 0.3 (0-2) % Lymph # (Auto) 0.8 L (1.2-4.9) X10*3/uL [place] # (Auto) 0.5 (0.1-1.2) X10*3/uL Eos # (Auto) 0.1 (0.0-0.4) X10*3/uL Baso # (Auto) 0.0 (0.0-0.2) X10*3/uL Abs Immat Gran (auto) 0.01 (0.00-0.03) X10*3/uL Absolute Neuts (auto) 5.3 (2.0-8.3) x10*3/uL Absolute Nucleated RBC 0.000 (0.0-0.012) X10*3/uL Nucleated RBC % (auto) 0.0 (0.0-0.2) /100WBC Sodium 144 (135-145) mmol/L Potassium 3.3 (3.3-5.1) mmol/L Chloride 113 H (96-108) mmol/L Carbon Dioxide 23 (22-29) mmol/L Anion Gap 11 L (12-20) BUN 15 (9-16) mg/dL Creatinine 1.56 H (0.5-1.4) mg/dL Estim Creat Clear Calc 36.2 Estimated GFR 34 Random Glucose 107 (60-115) mg/dL Calcium 9.5 (8.4-10.2) mg/dL Total Bilirubin 0.4 (0.0-1.0) mg/dL AST 21 (5-31) U/L ALT 16 (0-31) U/L Alkaline Phosphatase 63 (39-117) U/L Total Protein 6.5 (6.5-8.0) g/dL Albumin 4.5 (3.5-5.0) g/dL Lipase 44 (8-78) U/L Urine Color Yellow Urine Appearance Cloudy Urine pH 5.5 (5.0-9.0) Ur Specific [place] 1.025 (1.005-1.025) Urine Protein Negative (Neg-Trace) mg/dL Urine Glucose (UA) Negative (Negative) mg/dL Urine Ketones Negative (Negative) mg/dL Urine Blood Large (3+) H (Negative) Urine Nitrite Negative (Negative) Ur Leukocyte Esterase Small (1+) H (Negative) Urine RBC >20 H (0-2) /HPF Urine WBC 0-5 (0-5) /HPF Ur Squamous Epith Cells 0-2 (0-2) /HPF Urine Bacteria None Seen (None Seen) Hyaline Casts 6-10 (0-2) /LPF Radiology Impression Discussion of test interpretation with radiology: I have reviewed the radiologist's reading. Radiologist Impression: CT abdomen and pelvis with contrast Comparison: None provided Findings: The lung bases are clear. Splenic cyst. Distended gallbladder without wall thickening. Liver, pancreas, and adrenal glands are within normal limits. Right kidney is absent. Left hydroureteronephrosis with 2 mm calculus in the left ureterovesical junction. No bowel obstruction, pneumatosis or pneumoperitoneum. Normal appendix. Hysterectomy. Urinary bladder is underdistended. The bones are intact. IMPRESSION: 1. Left hydroureteronephrosis with 2 mm calculus in left ureterovesical junction. 2. Absent right kidney. This document has been electronically signed by: Angel Casanova MD on 07/15/2025 02:02:46 External Record Review External record reviewed: Outpatient record Prescription Management I considered prescription management with: Pain Medication Medications Administered Discontinued Medications Generic Name Dose Route Start Last Admin Trade Name Freq PRN Reason Stop Dose Admin Sodium Chloride 1,000 mls @ 999 mls/hr 07/14/25 23:45 07/15/25 02:31 Ns IV 07/15/25 00:45 Infused .Q1H1M LUIPLLO Infusion Sodium Chloride 1,000 mls @ 999 mls/hr 07/15/25 02:45 07/15/25 03:56 Ns IV 07/15/25 03:45 999 mls/hr .Q1H1M LUPILLO Administration Iohexol 100 ml 07/15/25 00:18 07/15/25 00:24 Iohexol 350 Mg/Ml 100 Ml Infus..Btl IV 07/15/25 00:19 85 ml ONCE ONE Administration Ketorolac Tromethamine 15 mg 07/15/25 02:22 07/15/25 02:31 Ketorolac Tromethamine 15 Mg/Ml Vial IVPUSH 07/15/25 02:23 15 mg ONCE ONE Administration Morphine Sulfate 4 mg 07/14/25 23:35 07/15/25 00:03 Morphine Sulfate 4 Mg/Ml Cartridge IVPUSH 07/14/25 23:36 4 mg ONCE ONE Administration Protocol Ondansetron HCl 4 mg 07/14/25 23:35 07/15/25 00:03 Ondansetron Hcl 4 Mg/2 Ml Vial IVPUSH 07/14/25 23:36 4 mg ONCE ONE Administration Tamsulosin HCl 0.4 mg 07/15/25 02:22 07/15/25 02:31 Tamsulosin Hcl 0.4 Mg Capsule PO 07/15/25 02:23 0.4 mg ONCE ONE Administration Critical Care Time Critical Care Time Critical Care Time: Yes Total Critical Care Time: 35 Attestation: I have personally provided critical care time. Time includes review of lab data, radiology results, discussion with consultants, and monitoring for potential decompensation. Intervention performed as documented. Discharge Plan Discharge Clinical Impression: Ureterolithiasis, Hydronephrosis, TATY (acute kidney injury) Patient Disposition: Admitted As Inpatient Print Language: Moldovan
[2025-07-15] VITALS (7 sets, daily range): BP systolic 91–113; BP diastolic 54–68; PULSE 57–81; RESP 14–18; TEMP 36.3–36.8; O2SAT 97–100; BMI 24.4
[2025-07-15] MEDS: iohexoL 350 MG/ML 100 ML INFUS..BTL IV (00:24)
[2025-07-15 02:24] LABS: Appearance Urine Cloudy; Glucose Urine UA Negative (Negative); PH 5.5 (5.0-9.0); Specific Gravity - Urine 1.025 (1.005-1.025); UMIC TRIGGER UACC YES
[2025-07-15 02:48] LABS: UACC Culture Trigger YES
--- NOTE | 2025-07-15 05:43 | PM.IMHP ---
History of Present Illness Date of Service: 07/15/25 Attending physician on admission: Laura Marie Chief Complaint: left lower abdominal pain Pt is a 55 yo female with PMH R nephrectomy for donation,ovarian cyst, bladder sling, hysterectomy is being seen in the ED for complaints of sharp left abdominal pain that started at 4PM 07/14/2025. Pt denies any fever, chills, chest pain or SOB. Pt denies hx of kidney stones and denies any cx since donation of R kidney one year ago. Pt also believes she has a prolapsed recutm but has not been formally diagnosed and will see specialist on the . CT done in the ED notes Left hydroureteronephrosis with 2 mm calculus in left ureterovesical junction. Pt has no fever, leukocytosis and UA noted for +3 heme, +1 LE, >20 RBCs, WBC 0-5 and no bacteria. Pt received IV morphine, toradol and po tamsulosin. Renal function notes CrCL 36.2, GFR 34 and creatinine 1.56. Pt has no signs of sepsis and ABX have not been started. Pt was able to void once so far since arrival with good output. Reviewed with pt need for admission and all questions and concerns addressed. Review of Systems Review of Systems: Pt denies pain currently, states pain is resolved. Pt denies any N/V, diarrhea, chest pain or SOB at rest. [facility] Medical History Headache Depression Ovarian cyst Cognitive capacity: A/O X3 Functional capacity: independent ambulation Patient : No Surgical History H/O: hysterectomy History of bladder suspension procedure History of nephrectomy Social History Patient Tobacco Use Status: Never used Tobacco Meds Allergies Allergy/AdvReac Type Severity Reaction Status Date / Time No Known Allergies Allergy Verified 07/14/25 21:31 Physical Exam Vital Signs and Narrative: Vital Signs: Last Vital Signs Temp 98.1 F 07/15/25 02:00 Pulse 69 07/15/25 04:53 Resp 17 07/15/25 04:53 BP 108/63 07/15/25 04:53 Pulse Ox 100 07/15/25 04:53 O2 Del Method Room Air 07/15/25 04:53 BMI result Body Mass Index 24.3 Pt A/O X3,. CN II-XII intact HEENT: PERRLA, EOM intact, nares patent LUngs: CTA B Cardiac: S1S2 RRR, no murmu ABD: soft, NT, no guarding Ext: no edema Results Labs 07/14/25 21:39 07/14/25 21:39 Labs: Laboratory Results - last 24 hr 07/14/25 07/15/25 21:39 02:17 MCV 87.6 MCH 29.6 MCHC 33.9 RDW 14.2 Plt Count 165 MPV 12.1 Immature Gran % (Auto) 0.2 Neut % (Auto) 79.1 H Lymph % (Auto) 12.1 L [place] % (Auto) 7.4 Eos % (Auto) 0.9 Baso % (Auto) 0.3 Lymph # (Auto) 0.8 L [place] # (Auto) 0.5 Eos # (Auto) 0.1 Baso # (Auto) 0.0 Abs Immat Gran (auto) 0.01 Absolute Neuts (auto) 5.3 Absolute Nucleated RBC 0.000 Nucleated RBC % (auto) 0.0 Anion Gap 11 L Estim Creat Clear Calc 36.2 Estimated GFR 34 Random Glucose 107 Calcium 9.5 Total Bilirubin 0.4 AST 21 ALT 16 Alkaline Phosphatase 63 Total Protein 6.5 Albumin 4.5 Lipase 44 Urine Color Yellow Urine Appearance Cloudy Urine pH 5.5 Ur Specific [place] 1.025 Urine Protein Negative Urine Glucose (UA) Negative Urine Ketones Negative Urine Blood Large (3+) H Urine Nitrite Negative Ur Leukocyte Esterase Small (1+) H Urine RBC >20 H Urine WBC 0-5 Ur Squamous Epith Cells 0-2 Urine Bacteria None Seen Hyaline Casts 6-10 Imaging Radiologist's Impressions: CT ABD PELVIS IMPRESSION: 1. Left hydroureteronephrosis with 2 mm calculus in left ureterovesical junction. 2. Absent right kidney. Assessment and Plan (1) Ureterolithiasis: Status: Acute (2) Hydronephrosis: Qualifiers: Hydronephrosis type: with renal calculous obstruction Qualified Code(s): N13.2 - Hydronephrosis with renal and ureteral calculous obstruction Status: Acute (3) TAYT (acute kidney injury): Status: Acute Plan Pt is a 55 yo female with PMH R nephrectomy for donation,ovarian cyst, bladder sling, hysterectomy is being seen in the ED for complaints of sharp left abdominal pain that started at 4PM 07/14/2025. Pt denies any fever, chills, chest pain or SOB. Pt denies hx of kidney stones and denies any cx since donation of R kidney one year ago. Left hydroureteronephrosis with 2 mm calculus in left ureterovesical junction/ hydronephrosis Urology consulted Pain mgmt prn - avoid morphine and NSAIDS noting TATY , ordering dilaudid prn IV Hydration Tamsulosin conttinues ABX not started in ED, no obvious infection via UA but may need to consider starting empiric ABX TATY/ hx of R nephrectomy as donation Nephrology consulted Measure I/Os Avoid hypotension Avoid nephrotoxic meds IVF ordered BMP daily Likely Infrarenal with noted kidney stone and hydronephrosis Hx of rectal prolpase Pt is following with specialist as an outpatient DVT Prophylaxis: held in case pt requires procedure MED REC pendign FULL CODE Quality Stroke Does the patient have a stroke diagnosis?: No Reason for No Anti-thrombotic by Day Two: Contraindicated (Held in case procedure is needed ) VTE Prior VTE?: No VTE Risk Level:: Medical - low VTE Device Contraindication: Treatment Not Indicated VTE Drug Contraindication: Treatment Not Indicated
--- NOTE | 2025-07-15 06:48 | PC.NURSE ---
delay in iv fluid admin due to department lack of pump awaiting pump from supervisior charge lpn aware
[2025-07-15] MEDS: Lactated Ringers 1,000 ML 100 ML IVCONT (06:54)
--- NOTE | 2025-07-15 07:50 | HO.PM.IMPN ---
Subjective Subjective Date of Service: 07/15/25 Interval History: Staff to strain her urine today, if unsuccessful we will likely undergo stone extraction tomorrow NPO from midnight Reports pain improved with oxycodone Review of Systems Review of Systems: Yes all other systems are reviewed and are negative Physical Exam Exam: Exam: General: AOx3, no acute distress Resp: CTA bilaterally CVS: S1, S2, RRR GI: +BS, NT, no distention Skin: Warm, dry Psych: Appropriate affect Vital Signs: Vital Signs: Last Vital Signs Temp 98.1 F 07/15/25 02:00 Pulse 69 07/15/25 04:53 Resp 17 07/15/25 04:53 BP 108/63 07/15/25 04:53 Pulse Ox 100 07/15/25 04:53 O2 Del Method Room Air 07/15/25 04:53 BMI result Body Mass Index 24.3 Objective Data Active Medications Acetaminophen (Acetaminophen 325 Mg Tablet) 650 mg PO Q6H PRN PRN Reason: Pain, Mild 1-3,fever,headache Albuterol/Ipratropium (Albuterol/Iprat 2.5/0.5mg 3 Ml Ampul.Neb) 3 ml INHALE Q4H PRN PRN Reason: Shortness of Breath/Wheezing Calcium Carbonate (Calcium Carbonate 750 Mg Tab.Chew) 750 mg PO Q4H PRN PRN Reason: Heartburn Hydromorphone HCl (Hydromorphone Hcl 0.5 Mg/0.5 Ml Syringe) 0.5 mg IVPUSH Q4H PRN; Protocol PRN Reason: Pain, Severe (Pain Scale 7-10) Lactated Ringer's (Lr) 1,000 mls @ 100 mls/hr IVCONT .Q10H [facility] Last Admin: 07/15/25 06:54 Dose: 100 mls/hr Documented By: TEMI Magnesium Hydroxide (Milk Of Magnesia 30 Ml Oral.Susp) 30 ml PO DAILY PRN PRN Reason: Constipation Melatonin (Melatonin 3 Mg Tablet) 6 mg PO BEDTIME PRN PRN Reason: Insomnia Ondansetron HCl (Ondansetron Hcl 4 Mg/2 Ml Vial) 4 mg IVPUSH Q8H PRN PRN Reason: Nausea and Vomiting Sodium Chloride (0.9 % Sodium Chloride Flush 3 Ml Syringe) 3 ml IVFLUSH QSHIFT [facility] Last Admin: 07/15/25 07:36 Dose: Not Given Documented By: VANE Non-Admin Reason: IV Running Tamsulosin HCl (Tamsulosin Hcl 0.4 Mg Capsule) 0.4 mg PO DAILY [facility] Labs 07/14/25 21:39 07/14/25 21:39 Labs: Laboratory Results - last 24 hr 07/14/25 07/15/25 21:39 02:17 MCV 87.6 MCH 29.6 MCHC 33.9 RDW 14.2 Plt Count 165 MPV 12.1 Immature Gran % (Auto) 0.2 Neut % (Auto) 79.1 H Lymph % (Auto) 12.1 L [place] % (Auto) 7.4 Eos % (Auto) 0.9 Baso % (Auto) 0.3 Lymph # (Auto) 0.8 L [place] # (Auto) 0.5 Eos # (Auto) 0.1 Baso # (Auto) 0.0 Abs Immat Gran (auto) 0.01 Absolute Neuts (auto) 5.3 Absolute Nucleated RBC 0.000 Nucleated RBC % (auto) 0.0 Anion Gap 11 L Estim Creat Clear Calc 36.2 Estimated GFR 34 Random Glucose 107 Calcium 9.5 Total Bilirubin 0.4 AST 21 ALT 16 Alkaline Phosphatase 63 Total Protein 6.5 Albumin 4.5 Lipase 44 Urine Color Yellow Urine Appearance Cloudy Urine pH 5.5 Ur Specific [place] 1.025 Urine Protein Negative Urine Glucose (UA) Negative Urine Ketones Negative Urine Blood Large (3+) H Urine Nitrite Negative Ur Leukocyte Esterase Small (1+) H Urine RBC >20 H Urine WBC 0-5 Ur Squamous Epith Cells 0-2 Urine Bacteria None Seen Hyaline Casts 6-10 Assessment and Plan (1) Ureterolithiasis: Status: Acute Assessment and Plan: Patient is a 55-year-old female with PMH notable for right nephrectomy s/p donation to a friend, bladder sling, ovarian cyst, hysterectomy who was admitted the evening of 07/14/2025 with left-sided flank pain and was noted to have left hydronephrosis and Urology was consulted. Acute onset left flank pain secondary to left hydronephrosis with a 4 mm calculus at the left UV junction TATY-intrarenal resolving Plan is to hydrate her and strain her urine If she is unable to pass the stone, plan is to extracted in the a.m. NPO from midnight Given high-risk of genitourinary sepsis in a patient with solitary kidney, multiple risk factors we would like to initiate ceftriaxone Urology following DVT prophylaxis with SCD today and s/p procedure, we will initiate Lovenox This note is constructed using voice recognition software. While every effort has been made to ensure accuracy, stunt person errors may have been included. Quality Stroke Does the patient have a stroke diagnosis?: No Reason for No Anti-thrombotic by Day Two: Contraindicated (Held in case procedure is needed ) VTE Prior VTE?: No VTE Risk Level:: Medical - low VTE Device Contraindication: Treatment Not Indicated VTE Drug Contraindication: Treatment Not Indicated
--- NOTE | 2025-07-15 09:31 | PHA.MEDREC ---
Addendum entered by Harvey Cunningham PharmD 07/15/25 09:34: reviewed Original Note: Pharmacy Consult ? Medication Reconciliation Pharmacy has completed the medication reconciliation. Patient was able to name her medications. patient confirmed Wegovy 1 mg every Wednesday, last dose was 07/06/25. Patient states she is still taking Topiramate 50 mg BID , however last fill date was 10/13/24 left on med rec because patient states she just took it yesterday.
--- NOTE | 2025-07-15 11:49 | PC.NURSE ---
Assumed care of this patient at 1100, patient resting quietly on stretcher at this time, patient denies pain. Plan for patient to strain all urine. Spoke to Dr. Villa Cee, patient allowed to eat, NPO again after midnight.
--- NOTE | 2025-07-15 12:09 | P.CNUR_ITS ---
History of Present Illness Consult details Consult date: 07/15/25 Narrative: Solitary left kidney. 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 Currently patient is comfortable. CTAP--Left kidney 2 mm ureteral stone with hydronephrosis Review of Systems 2 Review of Systems: Yes all other systems are reviewed and are negative Constitutional: Constitutional: Reports no additional constitutional complaints Eyes: Eyes: Reports no additional eye complaints ENT: Reports system reviewed and no additional complaints, except as documented Cardiovascular: Cardiovascular: Reports no additional cardiovascular complaints Respiratory: Respiratory: Reports no additional respiratory complaints Gastrointestinal: Gastrointestinal: Reports no additional gastrointestinal complaints Genitourinary: Genitourinary: Reports as per HPI Musculoskeletal: Musculoskeletal: Reports no additional musculoskeletal complaints Integumentary/Breasts: Skin/Breast: Reports system reviewed and no additional complaints, except as docu Neurologic: Reports system reviewed and no additional complaints, except as documented Psychiatric: Psychiatric: Reports no additional psychiatric complaints Endocrine: Endocrine: Reports no additional endocrine complaints Hematologic/Lymphatic: Hematologic/Lymphatic: Reports no additional hematologic/lymphatic complaints Allergic/Immunologic: Allergic/Immunologic: Reports no additional allergic/immunologic complaints PMFSH Past Medical History Medical History Headache Depression Ovarian cyst Surgical History Surgical History H/O: hysterectomy History of bladder suspension procedure History of nephrectomy Social History Social History Household Members: Other Housing: House Do you presently have visiting nurse or other home services: No Patient Tobacco Use Status: Never used Tobacco Second Hand Smoke Exposure: No Meds Allergies Allergy/AdvReac Type Severity Reaction Status Date / Time No Known Allergies Allergy Verified 07/14/25 21:31 Active Medications: Current Medications Acetaminophen (Acetaminophen 325 Mg Tablet) 650 mg PO Q6H PRN PRN Reason: Pain, Mild 1-3,fever,headache Albuterol/Ipratropium (Albuterol/Iprat 2.5/0.5mg 3 Ml Ampul.Neb) 3 ml INHALE Q4H PRN PRN Reason: Shortness of Breath/Wheezing Calcium Carbonate (Calcium Carbonate 750 Mg Tab.Chew) 750 mg PO Q4H PRN PRN Reason: Heartburn Hydromorphone HCl (Hydromorphone Hcl 0.5 Mg/0.5 Ml Syringe) 0.5 mg IVPUSH Q4H PRN; Protocol PRN Reason: Pain, Severe (Pain Scale 7-10) Lactated Ringer's (Lr) 1,000 mls @ 125 mls/hr IVCONT .Q8H [facility] Last Admin: 07/15/25 06:54 Dose: 100 mls/hr Magnesium Hydroxide (Milk Of Magnesia 30 Ml Oral.Susp) 30 ml PO DAILY PRN PRN Reason: Constipation Melatonin (Melatonin 3 Mg Tablet) 6 mg PO BEDTIME PRN PRN Reason: Insomnia Ondansetron HCl (Ondansetron Hcl 4 Mg/2 Ml Vial) 4 mg IVPUSH Q8H PRN PRN Reason: Nausea and Vomiting Sodium Chloride (0.9 % Sodium Chloride Flush 3 Ml Syringe) 3 ml IVFLUSH QSHIFT [facility] Last Admin: 07/15/25 07:36 Dose: Not Given Tamsulosin HCl (Tamsulosin Hcl 0.4 Mg Capsule) 0.4 mg PO DAILY [facility] Last Admin: 07/15/25 08:26 Dose: 0.4 mg Home Medications ?Medication ?Instructions ?Recorded ?Confirmed ?Last Taken ?Type bupropion HCl 300 mg 24 hr tablet, 300 mg PO DAILY 06/0107/15/25 07/14/25 History extended release semaglutide (weight loss) 1 mg/0.5 1 mg subcut FR 06/0107/15/25 07/06/25 History mL subcutaneous pen injector (Man) sertraline 100 mg tablet 200 mg PO DAILY 07/15/2506/0107/14/25 History topiramate 50 mg tablet 50 mg PO BID 07/15/2507/14/25 History Physical Exam 2 Vital Signs: Vital Signs: Last Vital Signs Temp 98.1 F 07/15/25 02:00 Pulse 63 07/15/25 08:01 Resp 18 07/15/25 08:01 BP 93/57 L 07/15/25 08:01 Pulse Ox 99 07/15/25 08:01 O2 Del Method Room Air 07/15/25 08:01 BMI result Body Mass Index 24.3 Const: General: cooperative, healthy appearing and no acute distress O rientation/consciousness: patient oriented x3 HEENT: Head: Yes normal to inspection, Yes normocephalic and Yes atraumatic Eyes: Conjunctivae: conjunctivae normal Neck: Neck: Yes normal visual inspection and Yes trachea midline Chest: Chest palpation & inspection: normal inspection of the chest Resp: Effort & Inspection: normal respiratory effort GI: Inspection: Yes normal to inspection Palpation (GI): Soft to palpation Neuro: General: patient oriented x3 Psych: Appearance: grossly normal Results Labs 07/16/25 05:21 07/16/25 05:21 Labs: Abnormal lab results 07/14/25 07/15/25 Range/Units 21:39 02:17 Neut % (Auto) 79.1 H (45-73) % Lymph % (Auto) 12.1 L (20-40) % Lymph # (Auto) 0.8 L (1.2-4.9) X10*3/uL Chloride 113 H (96-108) mmol/L Anion Gap 11 L (12-20) Creatinine 1.56 H (0.5-1.4) mg/dL Urine Blood Large (3+) H (Negative) Ur Leukocyte Esterase Small (1+) H (Negative) Urine RBC >20 H (0-2) /HPF Short CBC 07/14/25 Range/Units 21:39 WBC 6.6 (4.8-10.8) X10*3/uL Hgb 13.1 (12.0-16.0) g/dl Hct 38.7 (37.0-47.0) % Plt Count 165 (160-400) X10*3/uL BMP 07/14/25 21:39 Sodium 144 Potassium 3.3 Chloride 113 H Carbon Dioxide 23 BUN 15 Creatinine 1.56 H Calcium 9.5 Liver Function 07/14/25 Range/Units 21:39 Total Bilirubin 0.4 (0.0-1.0) mg/dL AST 21 (5-31) U/L ALT 16 (0-31) U/L Alkaline Phosphatase 63 (39-117) U/L Albumin 4.5 (3.5-5.0) g/dL Urine 07/15/25 Range/Units 02:17 Urine Color Yellow Urine Appearance Cloudy Urine pH 5.5 (5.0-9.0) Ur Specific [place] 1.025 (1.005-1.025) Urine Protein Negative (Neg-Trace) mg/dL Urine Glucose (UA) Negative (Negative) mg/dL All other labs normal. Assessment and Plan (1) Ureterolithiasis: Status: Acute (2) Hydronephrosis: Qualifiers: Hydronephrosis type: with renal calculous obstruction Qualified Code(s): N13.2 - Hydronephrosis with renal and ureteral calculous obstruction Status: Acute (3) TATY (acute kidney injury): Status: Acute (4) Solitary kidney, acquired: Status: Acute Plan IV fluid hydration Flomax Strain all urine NPO past midnight-we will add on for Wednesday if patient does not pass the stone for left ureteral stent possible ureteroscopy. Procedures Date of Service Date of Service: 07/16/25
[2025-07-15] MEDS: buPROPion HCl XL 300 MG TAB.ER.24H PO (13:36)
[2025-07-15] MEDS: Lactated Ringers 1,000 ML 125 ML IVCONT (16:36)
[2025-07-16] MEDS: Lactated Ringers 1,000 ML 125 ML IVCONT ×2 (01:24→08:09)
[2025-07-16 03:27] VITALS: BP 96/59; PULSE 69; RESP 17; TEMP 36.4; O2SAT 96
[2025-07-16 05:58] LABS: Hematocrit 33.2 % (37.0-47.0); Hemoglobin 10.7 g/dl (12.0-16.0); Imm Gran Abs Auto 0.01 X10*3/uL (0.00-0.03); Imm Gran Pct Auto 0.4 % (0.0-0.4); Lymphocytes Absolute Auto 0.8 X10*3/uL (1.2-4.9); MANUAL DIFF FLAG SCAN; Mean Corpuscular HGB Conc 32.2 g/dl (31.0-35.0); Mean Corpuscular Hemoglobin 29.4 pg (27.0-33.0); Mean Corpuscular Volume 91.2 fL (80.0-98.0); NRBC Abs Auto 0.000 X10*3/uL (0.0-0.012); NRBC Pct Auto 0.0 /100WBC (0.0-0.2); Platelet Count 109 X10*3/uL (160-400); Red Blood Count 3.64 X10*6/uL (4.20-5.50); SCAN SMEAR FLAG 1; White Blood Count 2.3 X10*3/uL (4.8-10.8)
[2025-07-16 06:17] LABS: Alanine Aminotransferase 10 U/L (0-31); Albumin Level 3.0 g/dL (3.5-5.0); Alkaline Phosphatase 50 U/L (39-117); Anion Gap 10 (12-20); Aspartate Amino Transferase 16 U/L (5-31); Blood Urea Nitrogen 8 mg/dL (9-16); Calcium 8.5 mg/dL (8.4-10.2); Carbon Dioxide 23 mmol/L (22-29); Chloride 117 mmol/L (96-108); Creatinine Clr Calc Pharmacy 51.3; Estimated Glomerular Filt Rate 51; Potassium 3.8 mmol/L (3.3-5.1); Sodium 146 mmol/L (135-145); Total Protein 4.7 g/dL (6.5-8.0)
[2025-07-16 07:49] VITALS: BP 100/58; PULSE 65; RESP 17; TEMP 36.6; O2SAT 95
[2025-07-16] MEDS: buPROPion HCl XL 300 MG TAB.ER.24H PO (08:05)
[2025-07-16] MEDS: 0.9 % Sodium Chloride Flush 3 ML SYRINGE IVFLUSH (08:05)
--- NOTE | 2025-07-16 08:46 | P.CONAN_ITS ---
HPI - Anesthesia Eval Consult details Narrative: 55 yr old female for cystoscopy, left ureteral stent ureteroscopy s/p right nephrectomy s/p donation to a friend [facility] Active Problems Active Problems: All Active Problems (Updated 07/15/25 @ 12:10 by Rosalind Pretty MD) Solitary kidney, acquired (Acute) Depression (Acute) TATY (acute kidney injury) (Acute) Hydronephrosis (Acute) Ureterolithiasis (Acute) Past Medical History Medical History Headache Depression Ovarian cyst Functional capacity: independent ambulation Surgical History Surgical History H/O: hysterectomy History of bladder suspension procedure History of nephrectomy Social History Social History Household Members: Other Housing: House Do you presently have visiting nurse or other home services: No Patient Tobacco Use Status: Never used Tobacco Second Hand Smoke Exposure: No Meds Allergies Allergy/AdvReac Type Severity Reaction Status Date / Time No Known Allergies Allergy Verified 07/14/25 21:31 Active Medications: Current Medications Acetaminophen (Acetaminophen 325 Mg Tablet) 650 mg PO Q6H PRN PRN Reason: Pain, Mild 1-3,fever,headache Albuterol/Ipratropium (Albuterol/Iprat 2.5/0.5mg 3 Ml Ampul.Neb) 3 ml INHALE Q4H PRN PRN Reason: Shortness of Breath/Wheezing Bupropion HCl (Bupropion Hcl Xl 300 Mg Tab.Er.24h) 300 mg PO DAILY [facility] Last Admin: 07/16/25 08:05 Dose: 300 mg Calcium Carbonate (Calcium Carbonate 750 Mg Tab.Chew) 750 mg PO Q4H PRN PRN Reason: Heartburn Ceftriaxone Sodium (Ceftriaxone Sodium 1 Gm Vial) 1 gm IVPUSH Q24H [facility] Last Admin: 07/15/25 13:36 Dose: 1 gm Hydromorphone HCl (Hydromorphone Hcl 0.5 Mg/0.5 Ml Syringe) 0.5 mg IVPUSH Q4H PRN; Protocol PRN Reason: Pain, Severe (Pain Scale 7-10) Lactated Ringer's (Lr) 1,000 mls @ 125 mls/hr IVCONT .Q8H [facility] Last Admin: 07/16/25 08:09 Dose: 125 mls/hr Magnesium Hydroxide (Milk Of Magnesia 30 Ml Oral.Susp) 30 ml PO DAILY PRN PRN Reason: Constipation Melatonin (Melatonin 3 Mg Tablet) 6 mg PO BEDTIME PRN PRN Reason: Insomnia Ondansetron HCl (Ondansetron Hcl 4 Mg/2 Ml Vial) 4 mg IVPUSH Q8H PRN PRN Reason: Nausea and Vomiting Sertraline HCl (Sertraline Hcl 100 Mg Tablet) 200 mg PO DAILY [facility] Last Admin: 07/16/25 08:05 Dose: 200 mg Sodium Chloride (0.9 % Sodium Chloride Flush 3 Ml Syringe) 3 ml IVFLUSH QSHIFT [facility] Last Admin: 07/16/25 08:05 Dose: 3 ml Tamsulosin HCl (Tamsulosin Hcl 0.4 Mg Capsule) 0.4 mg PO DAILY [facility] Last Admin: 07/16/25 08:05 Dose: 0.4 mg Topiramate (Topiramate 25 Mg Tablet) 50 mg PO BID [facility] Last Admin: 07/16/25 08:05 Dose: 50 mg Home Medications ?Medication ?Instructions ?Recorded ?Confirmed ?Last Taken ?Type bupropion HCl 300 mg 24 hr tablet, 300 mg PO DAILY 06/0107/15/25 07/14/25 History extended release semaglutide (weight loss) 1 mg/0.5 1 mg subcut FR 06/0107/15/25 07/06/25 History mL subcutaneous pen injector (Wegovy) sertraline 100 mg tablet 200 mg PO DAILY 07/15/2506/0107/14/25 History topiramate 50 mg tablet 50 mg PO BID 07/15/2507/14/25 History Exam Height,Weight and Vital Signs: Height 5 ft 5 in Weight 66.5 kg Last Vital Signs Temp 97.8 F 07/16/25 07:49 Pulse 65 07/16/25 07:49 Resp 17 07/16/25 07:49 BP 100/58 L 07/16/25 07:49 Pulse Ox 95 07/16/25 07:49 O2 Del Method Room Air 07/16/25 07:49 Pertinent Lab Results Pertinent Lab Results: Laboratory Tests 07/14/25 07/15/25 07/16/25 21:39 02:17 05:21 WBC 6.6 2.3 L RBC 4.42 3.64 L Hgb 13.1 10.7 L Hct 38.7 33.2 L MCV 87.6 91.2 MCH 29.6 29.4 MCHC 33.9 32.2 RDW 14.2 14.2 Plt Count 165 109 L D MPV 12.1 12.6 H Immature Gran % (Auto) 0.2 0.4 Neut % (Auto) 79.1 H 52.2 Lymph % (Auto) 12.1 L 36.4 [place] % (Auto) 7.4 7.5 Eos % (Auto) 0.9 3.1 Baso % (Auto) 0.3 0.4 Lymph # (Auto) 0.8 L 0.8 L [place] # (Auto) 0.5 0.2 Eos # (Auto) 0.1 0.1 Baso # (Auto) 0.0 0.0 Abs Immat Gran (auto) 0.01 0.01 Absolute Neuts (auto) 5.3 1.2 L Absolute Nucleated RBC 0.000 0.000 Nucleated RBC % (auto) 0.0 0.0 Smear Tech's Comments VERIFIED Sodium 144 146 H Potassium 3.3 3.8 Chloride 113 H 117 H Carbon Dioxide 23 23 Anion Gap 11 L 10 L BUN 15 8 L Creatinine 1.56 H 1.10 Estim Creat Clear Calc 36.2 51.3 Estimated GFR 34 51 Random Glucose 107 91 Calcium 9.5 8.5 D Total Bilirubin 0.4 0.3 AST 21 16 ALT 16 10 Alkaline Phosphatase 63 50 Total Protein 6.5 4.7 L Albumin 4.5 3.0 L Lipase 44 Urine Color Yellow Urine Appearance Cloudy Urine pH 5.5 Ur Specific [place] 1.025 Urine Protein Negative Urine Glucose (UA) Negative Urine Ketones Negative Urine Blood Large (3+) H Urine Nitrite Negative Ur Leukocyte Esterase Small (1+) H Urine RBC >20 H Urine WBC 0-5 Ur Squamous Epith Cells 0-2 Urine Bacteria None Seen Hyaline Casts 6-10
--- NOTE | 2025-07-16 11:45 | P.DS_ITS ---
DS: Providers Provider Date of Service: 07/16/25 Date of admission: 07/15/25 05:41 Date of discharge: 07/16/25 Primary care physician: Payal Nugent MD Consults: 07/15/25 05:58 Consult to Nephrology Routine Consulting Provider: [facility] Reason for consultation: TATY, hx of R nephrectomy for donation Consult to Urology Routine Consulting Provider: [facility] Reason for consultation: Left hydroureteronephrosis with 2 mm calculus in left ureterovesical junct Has provider been notified: No DS: Diagnosis Discharge Diagnosis (1) Ureterolithiasis: Status: Acute (2) Hydronephrosis: Status: Acute (3) TATY (acute kidney injury): Status: Acute (4) Solitary kidney, acquired: Status: Acute DS: Summary Hospital Course Hospital Course: History and physical as per admitting provider. Pt is a 55 yo female with PMH R nephrectomy for donation,ovarian cyst, bladder sling, hysterectomy is being seen in the ED for complaints of sharp left abdominal pain that started at 4PM 07/14/2025. Pt denies any fever, chills, chest pain or SOB. Pt denies hx of kidney stones and denies any cx since donation of R kidney one year ago. Pt also believes she has a prolapsed recutm but has not been formally diagnosed and will see specialist on the . CT done in the ED notes Left hydroureteronephrosis with 2 mm calculus in left ureterovesical junction. Pt has no fever, leukocytosis and UA noted for +3 heme, +1 LE, >20 RBCs, WBC 0-5 and no bacteria. Pt received IV morphine, toradol and po tamsulosin. Renal function notes CrCL 36.2, GFR 34 and creatinine 1.56. Pt has no signs of sepsis and ABX have not be en started. Pt was able to void once so far since arrival with good output. reviewed with pt need for admission and all questions and concerns addressed. 55-year-old woman presenting to the ER with complaints of acute onset left flank pain secondary to left hydronephrosis with 4 mm calculus at the left UV junction. She developed TATY as well. She was started on Flomax, seen evaluated by Urology who recommended NPO for possible urological procedure. Patient was treated with IV fluids and pain medications. This morning patient reported no pain and her TATY had improved. Stat abdominal ultrasound showed that she passed the stone. Plan will be to discharge patient home with Flomax for 2 weeks and she can follow up with the primary care provider or Urology if she needs to continue with this medication. Time Attestation Discharge Coordination Time (in mins): 40 Quality: Safe Use of Opioids Does Pt have an Active Cancer Diagnosis on the Problem List?: No Quality: Stroke Does the patient have a stroke diagnosis?: No Physical Exam Exam: Exam: Appearing in no acute distress head is normocephalic atraumatic eyes pupils are PERRLA sclera is anicteric mouth throat mucous membranes are intact and moist neck is supple no lymphadenopathy, no JVD noted lung sounds are clear to auscultation heart regular rate rhythm, clear S1, S2 positive bowel sounds, abdomen is soft, nontender neuro patient is alert x3, no focal deficits Vital Signs: Vital Signs: Last Vital Signs Temp 97.8 F 07/16/25 07:49 Pulse 65 07/16/25 07:49 Resp 17 07/16/25 07:49 BP 100/58 L 07/16/25 07:49 Pulse Ox 95 07/16/25 07:49 O2 Del Method Room Air 07/16/25 07:49 BMI result Body Mass Index 24.4 DS: Data Data Completed and Pending Labs on day of discharge: Laboratory Results - last 24 hr 07/16/25 05:21 WBC 2.3 L RBC 3.64 L Hgb 10.7 L Hct 33.2 L MCV 91.2 MCH 29.4 MCHC 32.2 RDW 14.2 Plt Count 109 L D MPV 12.6 H Immature Gran % (Auto) 0.4 Neut % (Auto) 52.2 Lymph % (Auto) 36.4 [place] % (Auto) 7.5 Eos % (Auto) 3.1 Baso % (Auto) 0.4 Lymph # (Auto) 0.8 L [place] # (Auto) 0.2 Eos # (Auto) 0.1 Baso # (Auto) 0.0 Abs Immat Gran (auto) 0.01 Absolute Neuts (auto) 1.2 L Absolute Nucleated RBC 0.000 Nucleated RBC % (auto) 0.0 Smear Tech's Comments VERIFIED Sodium 146 H Potassium 3.8 Chloride 117 H Carbon Dioxide 23 Anion Gap 10 L BUN 8 L Creatinine 1.10 Estim Creat Clear Calc 51.3 Estimated GFR 51 Random Glucose 91 Calcium 8.5 D Total Bilirubin 0.3 AST 16 ALT 10 Alkaline Phosphatase 50 Total Protein 4.7 L Albumin 3.0 L Discharge Plan Discharge Anticipated Discharge Date/Time: 07/16/25 11:42 Patient Disposition: Home, Self-Care Discharge Diagnosis: Renal calculi with hydronephrosis Referrals: Payal Nugent MD [Primary Care Provider, Internal Medicine] - 1 Week Discharge Medications: New tamsulosin 0.4 mg Capsule 0.4 mg PO DAILY Qty: 14 0RF Continued sertraline 100 mg tablet 200 mg PO DAILY bupropion HCl 300 mg tablet extended release 24 hr 300 mg PO DAILY Wegovy 1 mg/0.5 mL pen injector 1 mg SUBCUT FR topiramate 50 mg tablet 50 mg PO BID Discharge Orders: Discharge Order (Routine); Ordered 07/16/25 Ordered By: Ale Estevez Diet: Advance to usual diet Activity on Discharge: As tolerated Stand Alone Forms: Patient Portal Discharge page Print Language: [place]ian Care Plan Goals: Continue Flomax for 2 weeks, follow up with primary care provider or Urology to determine need to continue this medication Health Concerns: Renal calculi with hydronephrosis Plan of Treatment: Follow up with primary care provider as needed Take all medications as prescribed Assessment: See discharge summary
--- NOTE | 2025-07-16 11:51 | MHC.CM.PN ---
pt dcd home self care
--- NOTE | 2025-07-16 11:52 | MHC.CM.PN ---
pt dcd home self care pt left prior to being seen by cm
--- NOTE | 2025-07-16 12:08 | PM.CNNEP ---
History of Present Illness Reason for Consult Consult date: 07/16/25 Chief Complaint Chief complaint: Acute Kidney Injury History of Present Illness Narrative: 55 y/o female with a history of right nephrectoy for donation, ovarian cyst, bladder sling, hysterectomy. Presented 07/15 with severe left abdominal pain x1 day. CT: left hydroureteronephrosis with 2mm stone. 07/14 creatinine was 1.56, 07/16 was 1.10. states she follows a cafe or restaurant manager as outpatient (cannot recall name) annually and has an upcoming appointment later this month. she states pain has significantly improved so she is not sure if she passed the stone yet or not. No other complaints/concerns at this time. Review of Systems Review of Systems Yes all other systems are reviewed and are negative PMFSH Past Medical History Medical History Headache Depression Ovarian cyst Surgical History Surgical History H/O: hysterectomy History of bladder suspension procedure History of nephrectomy Social History Social History Household Members: Other Housing: House Do you presently have visiting nurse or other home services: No Patient Tobacco Use Status: Never used Tobacco Second Hand Smoke Exposure: No Meds Allergies Allergy/AdvReac Type Severity Reaction Status Date / Time No Known Allergies Allergy Verified 07/14/25 21:31 Active Medications: Current Medications Acetaminophen (Acetaminophen 325 Mg Tablet) 650 mg PO Q6H PRN PRN Reason: Pain, Mild 1-3,fever,headache Albuterol/Ipratropium (Albuterol/Iprat 2.5/0.5mg 3 Ml Ampul.Neb) 3 ml INHALE Q4H PRN PRN Reason: Shortness of Breath/Wheezing Bupropion HCl (Bupropion Hcl Xl 300 Mg Tab.Er.24h) 300 mg PO DAILY [facility] Last Admin: 07/16/25 08:05 Dose: 300 mg Calcium Carbonate (Calcium Carbonate 750 Mg Tab.Chew) 750 mg PO Q4H PRN PRN Reason: Heartburn Ceftriaxone Sodium (Ceftriaxone Sodium 1 Gm Vial) 1 gm IVPUSH Q24H [facility] Last Admin: 07/15/25 13:36 Dose: 1 gm Hydromorphone HCl (Hydromorphone Hcl 0.5 Mg/0.5 Ml Syringe) 0.5 mg IVPUSH Q4H PRN; Protocol PRN Reason: Pain, Severe (Pain Scale 7-10) Lactated Ringer's (Lr) 1,000 mls @ 125 mls/hr IVCONT .Q8H [facility] Last Admin: 07/16/25 08:09 Dose: 125 mls/hr Magnesium Hydroxide (Milk Of Magnesia 30 Ml Oral.Susp) 30 ml PO DAILY PRN PRN Reason: Constipation Melatonin (Melatonin 3 Mg Tablet) 6 mg PO BEDTIME PRN PRN Reason: Insomnia Ondansetron HCl (Ondansetron Hcl 4 Mg/2 Ml Vial) 4 mg IVPUSH Q8H PRN PRN Reason: Nausea and Vomiting Sertraline HCl (Sertraline Hcl 100 Mg Tablet) 200 mg PO DAILY [facility] Last Admin: 07/16/25 08:05 Dose: 200 mg Sodium Chloride (0.9 % Sodium Chloride Flush 3 Ml Syringe) 3 ml IVFLUSH QSHIFT [facility] Last Admin: 07/16/25 08:05 Dose: 3 ml Tamsulosin HCl (Tamsulosin Hcl 0.4 Mg Capsule) 0.4 mg PO DAILY [facility] Last Admin: 07/16/25 08:05 Dose: 0.4 mg Topiramate (Topiramate 25 Mg Tablet) 50 mg PO BID [facility] Last Admin: 07/16/25 08:05 Dose: 50 mg Home Medications ?Medication ?Instructions ?Recorded ?Confirmed ?Last Taken ?Type bupropion HCl 300 mg 24 hr tablet, 300 mg PO DAILY 07/15/25 07/15/25 07/14/25 History extended release semaglutide (weight loss) 1 mg/0.5 1 mg subcut FR 07/15/25 07/15/25 07/06/25 History mL subcutaneous pen injector (Wegovy) sertraline 100 mg tablet 200 mg PO DAILY 07/15/25 07/15/25 07/14/25 History topiramate 50 mg tablet 50 mg PO BID 07/15/25 07/15/25 07/14/25 History Physical Exam Vital Signs: Last Vital Signs Temp 97.8 F 07/16/25 07:49 Pulse 65 07/16/25 07:49 Resp 17 07/16/25 07:49 BP 100/58 L 07/16/25 07:49 Pulse Ox 95 07/16/25 07:49 O2 Del Method Room Air 07/16/25 07:49 BMI result Body Mass Index 24.4 Const General: no acute distress, alert and awake Resp Effort & Inspection: normal respiratory effort and able to speak in complete sentences GI Palpation (GI): Soft to palpation and nontender Skin Rashes: no rashes Extrem General: No edema Results Lab Results 07/16/25 05:21 07/16/25 05:21 Lab results: Chemistry 07/14/25 07/16/25 21:39 05:21 Sodium 144 146 H Potassium 3.3 3.8 Carbon Dioxide 23 23 BUN 15 8 L Creatinine 1.56 H 1.10 Calcium 9.5 8.5 D Hematology 07/14/25 07/16/25 21:39 05:21 WBC 6.6 2.3 L Hgb 13.1 10.7 L Plt Count 165 109 L D Urinalysis 07/15/25 02:17 Urine Color Yellow Urine Appearance Cloudy Urine pH 5.5 Ur Specific [place] 1.025 Urine Protein Negative Urine Glucose (UA) Negative Urine Ketones Negative Urine Blood Large (3+) H Urine Nitrite Negative Ur Leukocyte Esterase Small (1+) H Urine RBC >20 H Urine WBC 0-5 Ur Squamous Epith Cells 0-2 Hyaline Casts 6-10 Assessment and Plan (1) TATY (acute kidney injury): Status: Acute (2) Solitary kidney, acquired: Status: Acute Plan TATY likely related to urinary obstruction renal function is improving recommend continued follow up with urology to ensure obstruction resolves recommend following up with her outpatient cafe or restaurant manager for stone evaluation and prevention of renal stone formation in the future Will sign off, happy to see again if changes or new concerns arise. Discussed with Dr Stanton. Procedures Date of Service Date of Service: 07/16/25
== END 2025-07-16 12:40 | disposition home or self-care (01) | DRG 465 ==
LOC: HO.ED 07-15 05:38 → HO.EDOVER 07-15 05:59 → HO.S3 07-15 13:22
PROVIDERS: Student in an Organized Health Care Education/Training Program; Urology; Admitting Provider Internal Medicine; Emergency Provider Emergency Medicine; PCP Internal Medicine; Visit Provider Nurse Practitioner Acute Care
DX: N13.2 Hydronephrosis with renal and ureteral calculous obstruction (principal); Z90.5 Acquired absence of kidney; Z79.899 Other long term (current) drug therapy
CPT/HCPCS: 36415; 74177; 80053; 81001; 82365; 83690; 85025; 87086; 99221; 99285; J0696; J1885; J2270; J2405; J7120; Q9967

== ENCOUNTER → 2025-07-15 00:01 | Outpatient (BNV) | payer OTHER, SELFPAY | PROVIDERS: Emergency Provider Emergency Medicine; PCP Internal Medicine; Visit Provider Radiology Diagnostic Radiology | DX: N13.2 Hydronephrosis with renal and ureteral calculous obstruction (principal) | CPT/HCPCS: 74177 ==

== ENCOUNTER → 2025-07-15 05:41 | Outpatient (BNV) | payer OTHER, SELFPAY | PROVIDERS: Admitting Provider Internal Medicine; Emergency Provider Emergency Medicine; PCP Internal Medicine; Visit Provider Urology | DX: N13.2 Hydronephrosis with renal and ureteral calculous obstruction (principal); N17.9 Acute kidney failure, unspecified; Z90.5 Acquired absence of kidney | CPT/HCPCS: 99222 ==

== ENCOUNTER → 2025-07-15 05:41 | Outpatient (BNV) | payer OTHER, SELFPAY | PROVIDERS: Admitting Provider Internal Medicine; Emergency Provider Emergency Medicine; PCP Internal Medicine; Visit Provider Nurse Practitioner Family | DX: N17.9 Acute kidney failure, unspecified (principal); Z90.5 Acquired absence of kidney | CPT/HCPCS: 99221 ==

== ENCOUNTER → 2025-07-15 05:41 | Outpatient (BNV) | payer OTHER, SELFPAY | PROVIDERS: Admitting Provider Internal Medicine; Emergency Provider Emergency Medicine; PCP Internal Medicine; Visit Provider Student in an Organized Health Care Education/Training Program | DX: N13.2 Hydronephrosis with renal and ureteral calculous obstruction (principal); N17.9 Acute kidney failure, unspecified | CPT/HCPCS: 99223; 99499 ==